=== PATIENT | female | born 1965 | race Caucasian/White ===

== ENCOUNTER → 2018-03-17 10:25 | Outpatient (CLI) | payer MEDICAID, SELFPAY ==
--- NOTE | 2018-03-17 10:28 | US_ITS ---
US breast LT complete INDICATION: Palpable nodule at 2:00 ORDERING PHYSICIAN: Rafa Capellan MD PATIENT AGE: 52 years COMPARISON: 03/11/2016 TECHNIQUE: Left breast ultrasound with axilla FINDINGS: There is a 3 mm hypoechoic area at 2:00 and may be due to small complex cyst having a similar appearance on 03/11/2016.. No other significant anomalies are evident. Small nodes are present in the axilla. IMPRESSION: 3 mm complex cyst at 2:00 similar to the previous exam. No suspicious lesions evident by ultrasound. Negative ultrasound does not exclude the possibility of malignancy. Suggest mammogram for further evaluation as a last mammogram at this institution was on 03/11/2016. BI-RADS Category: 0 Need Additional Imaging Evaluation RECOMMENDED FOLLOW-UP: IMM - IMMEDIATE FOLLOW-UP RECOMMENDED (A letter has been sent to the patient regarding results of the study.)
== END ==
PROVIDERS: PCP Family Medicine; Visit Provider Family Medicine
DX: N63.20 Unspecified lump in the left breast, unspecified quadrant (principal)
CPT/HCPCS: 76641

== ENCOUNTER → 2018-04-01 08:16 | Outpatient (CLI) | payer MEDICAID, SELFPAY ==
--- NOTE | 2018-04-01 08:18 | MM_ITS ---
MM Dig screening mamm BI w/CAD CAD Screening COMPARISON: Digital mammograms with CAD 08/22/2015 and additional views left breast 09/10/2015 and 6 month follow-up mammograms left breast 03/11/2016 INDICATION: There is a history of breast cancer patient paternal great aunt. TECHNIQUE: Standard CC and MLO images were obtained. R2 CAD reviewed. FINDINGS: Moderate diffuse heterogenic fibroglandular densities are seen in the central portions and upper outer quadrants of both breast. The findings are fairly symmetrical bilaterally. There is no suspicious lesion and no suspicious microcalcifications. There are stable small nodes in both axilla. IMPRESSION: Moderate diffuse breast density no suspicious lesion seen BI-RADS Category: 1 Negative RECOMMENDED FOLLOW-UP: 1YR - 1 YEAR FOLLOW-UP (A letter has been sent to the patient regarding results of the study.)
== END ==
PROVIDERS: PCP Family Medicine; Visit Provider Family Medicine
DX: Z12.31 Encounter for screening mammogram for malignant neoplasm of breast (principal)
CPT/HCPCS: 77067

== ENCOUNTER → 2018-05-26 12:20 | Outpatient (CLI) | payer MEDICAID, SELFPAY | PROVIDERS: PCP Family Medicine; Visit Provider Family Medicine | DX: R10.13 Epigastric pain (principal); Z82.49 Family history of ischemic heart disease and other diseases of the circulatory system | CPT/HCPCS: 93017 ==

== ENCOUNTER → 2019-08-18 08:42 | Outpatient (CLI) | payer OTHER, SELFPAY ==
--- NOTE | 2019-08-18 08:46 | MM_ITS ---
PROCEDURE: MM DIG SCREENING MAMM BI W/CAD Digital Breast Tomosynthesis Included CLINICAL INDICATION: SCREENING There is a history of breast cancer patient's paternal great aunt. COMPARISON: DMDXUAVL DIG MAMM-DX UNI ADD VIEWS-LT from 09/10/2015 DMDXUL DIG MAMM-DX UNI-LT from 03/11/2016 [facility] MM Dig screening mamm BI w/CAD from 04/01/2018 TECHNIQUE: Standard CC and MLO images and 3D Tomosynthesis was obtained. R2 CAD reviewed. FINDINGS: Moderate diffuse somewhat heterogenic fibroglandular densities are seen in the central portions of both breasts. The findings are stable unchanged from previous exams. There is no suspicious lesion and no suspicious microcalcifications. IMPRESSION: Moderate breast density with no suspicious lesions seen BI-RAD Category: 1 Negative FOLLOW-UP: 1YR 1 Year Follow-up (A letter has been sent to the patient regarding results of the study.) Dictated by: Dr. Shon Blake MD 08/19/2019 08:[address] Shon Blake MD in [place] 08/19/2019 08:15
== END ==
PROVIDERS: PCP Family Medicine; Visit Provider Family Medicine
DX: Z12.31 Encounter for screening mammogram for malignant neoplasm of breast (principal)
CPT/HCPCS: 77063; 77067

== ENCOUNTER 2021-01-23 09:37 | Emergency (ER) | payer OTHER, SELFPAY ==
[2021-01-23 11:02] VITALS: BP 133/86; PULSE 64; RESP 19; TEMP 36.7; O2SAT 97; BMI 29.6
--- NOTE | 2021-01-23 11:09 | HMH.EDUTC ---
[facility] [place] Clinical Impression: Superficial abrasion, Need for Tdap vaccination Sprain of left index finger Qualifiers: Encounter type: initial encounter Sprain of finger site: unspecified site Qualified Code(s): S63.611A - Unspecified sprain of left index finger, initial encounter Cellulitis Qualifiers: Site of cellulitis: extremity Site of cellulitis of extremity: upper extremity Laterality: left Qualified Code(s): L03.114 - Cellulitis of left upper limb Disposition: Home, Self-Care Condition on Discharge: Good Instructions: Cellulitis, DI for Finger Sprain Additional Instructions: Rest the extremity, apply ice for 15 minutes as tolerated three or four times per day, Elevate the extremity as tolerated while you are resting. Take ibuprofen for pain. I sent in a prescription to your pharmacy. Take the antibiotics as directed. Apply the topical antibiotic ointment to the wound on your finger as directed. Follow up with Dr. Freeman (orthopedics). I put in a referral but you need to call his office and schedule an appointment. Follow up with your regular doctor. GO TO THE ER FOR ANY WORSENING SYMPTOMS Prescriptions: Ibuprofen [Ibuprofen 600mg Tablet] 600 mg PO Q6HP PRN #30 tab PRN Reason: Mild Pain Transmission Status: Received by [facility] Sulfamethoxazole/Trimethoprim [Bactrim DS tablet] 1 each PO BID 10 Days #20 tab Transmission Status: Received by [facility] Mupirocin [Bactroban 2% Ointment 22gm tube] 1 applicatio TP TID 7 Days #1 gm Transmission Status: Received by [facility] cephALEXin [cephALEXin 500mg capsule] 500 mg PO Q6H 10 Days #40 cap Transmission Status: Received by [facility] Referrals: Eliseo Peñaloza MD [Primary Care Provider] - Quentin Freeman MD [Staff Physician] - Time of Disposition: 11:57 Medical Decision Making - Medical Records Medical records reviewed: No: I reviewed the patient's medical records. - Rogelio Inquiry Pt receiving controlled substance: No Vital Signs: 01/23/21 11:02 01/23/21 12:13 Temperature 98.1 F 98.1 F Temperature Source Oral Pulse Rate 64 Pulse Rate [Left] 64 Respiratory Rate 19 19 Blood Pressure 133/86 Blood Pressure [Right Arm] 133/86 Blood Pressure Mean [Right Arm] 101 02 Sat by Pulse Oximetry 97 Orders (Tests/Meds): ED MEDICATIONS Discontinued Medications Generic Name Dose Route Start Last Admin Trade Name Ortega PRN Reason Stop Dose Admin Tetanus/Reduced Diphtheria/Acell Pertussis 0.5 ml 01/23/21 11:15 01/23/21 11:30 Tet/Diphth/Pert-Adult 0.5ml Syringe IM 01/23/21 11:16 0.5 ml .ONCE ONE Administration - Radiology Data #1 Image(s): Hand Image Reviewed: Yes I reviewed the patient's radiology image, Yes I have reviewed radiologist's interpretation Preliminary Findings: No Fracture Seen PROCEDURE: XR HAND RT MIN 3V CLINICAL INDICATION: pain/swelling COMPARISON: CR HANDR3 HAND-RT 3 VIEWS from 11/08/2016 FINDINGS: No fracture or dislocation. No lytic or blastic change. There is normal mineralization. The joint spaces are well-preserved. No significant degenerative/arthritic changes. No erosive changes evident. Other findings:None. IMPRESSION: No acute findings. Dictated by: Everardo Castro MD 01/23/2021 13:37 Everardo Castro MD in [place] 01/23/2021 13:37 [facility] [place] - General Stated complaint: AO cut/swollen finger Time Seen by Provider: 01/23/21 11:09 Mode of Arrival: Ambulatory Source of Information: Patient Limitations: No Limitations Description of Symptoms (Recalled from Triage Doc. by RN): pt states she injured her R index finger pulling a command strip off the wall. pt now c/o R index finger pain and swelling that goes up into her hand. HEENT Symptoms (Recalled from RN notes): No Resp Symptoms (Recalled from RN notes): No Skin Symptoms (Recalled from RN notes): No MS Symptoms (Recalled from
--- NOTE | 2021-01-23 11:37 | XR_ITS ---
PROCEDURE: XR HAND RT MIN 3V CLINICAL INDICATION: pain/swelling COMPARISON: CR HANDR3 HAND-RT 3 VIEWS from 11/08/2016 FINDINGS: No fracture or dislocation. No lytic or blastic change. There is normal mineralization. The joint spaces are well-preserved. No significant degenerative/arthritic changes. No erosive changes evident. Other findings:None. IMPRESSION: No acute findings. Dictated by: Everardo Castro MD 01/23/2021 13:37 Everardo Castro MD in [place] 01/23/2021 13:37
[2021-01-23 12:13] VITALS: BP 133/86; PULSE 64; RESP 19; TEMP 36.7
== END 2021-01-23 12:18 | disposition home or self-care (01) ==
PROVIDERS: Emergency Provider Nurse Practitioner Family; PCP Family Medicine
DX: L03.114 Cellulitis of left upper limb (principal); S63.611A Unspecified sprain of left index finger, initial encounter; W22.09XA Striking against other stationary object, initial encounter; Y92.019 Unspecified place in single-family (private) house as the place of occurrence of the external cause
CPT/HCPCS: 73130; 90715; 99202; G0463

== ENCOUNTER 2021-03-12 16:40 | Emergency (ER) | payer OTHER, SELFPAY ==
[2021-03-12 16:52] VITALS: BP 126/74; PULSE 94; RESP 16; TEMP 37.9; O2SAT 95; BMI 29.4
[2021-03-12 18:36] LABS: UTC Strep Screen (Rapid) Positive (Negative)
[2021-03-12 18:37] VITALS: PULSE 93; RESP 16; TEMP 39.5; O2SAT 99; BMI 29.4
--- NOTE | 2021-03-12 19:03 | HMH.EDUTC ---
[facility] [place] Disposition Clinical Impression: Strep throat Disposition: Home, Self-Care Condition on Discharge: Good Instructions: Strep Throat, DI for Strep Throat Additional Instructions: Drink plenty of fluids. Take tylenol or ibuprofen for pain or fever. Take the medications as directed. Follow up with your regular doctor. GO TO THE ER FOR ANY WORSENING SYMPTOMS Throw your tooth brush away and get a new one. Don't start the oral steroids until tomorrow, since you had the shot here today. The cough medication (promethazine dm) will make you drowsy, so don't drive or operate heavy machinery after taking it. Prescriptions: Promethazine/Dextromethorphan [Promethazine-Dm Syrup] 5 ml PO Q6HP PRN #180 ml PRN Reason: Cough Transmission Status: Received by [facility] methylPREDNISolone [Medrol] 4 mg PO DIRECTED 6 Days #21 packet Transmission Status: Received by [facility] Azithromycin [Z-Devon 250mg Tab*] 250 mg PO UD DOSE PK #6 tab Transmission Status: Received by [facility] Referrals: Eliseo Peñaloza MD [Primary Care Provider] - Time of Disposition: 19:25 Medical Decision Making - Medical Records Medical records reviewed: No: I reviewed the patient's medical records. - Rogelio Inquiry Pt receiving controlled substance: No Vital Signs: 03/12/21 16:52 03/12/21 18:37 03/12/21 19:42 Temperature 100.3 F H 103.1 F H 100.1 F H Temperature Source Oral Oral Pulse Rate 85 Pulse Rate [Radial] 94 H 93 H Respiratory Rate 16 16 16 Blood Pressure 126/74 Blood Pressure [Right Radial Artery] 126/74 Blood Pressure Mean [Right Radial Artery] 91 Blood Pressure Position [Right Radial Artery] Sitting 02 Sat by Pulse Oximetry 95 99 Oxygen Delivery Method Room Air - Lab Data Lab results reviewed: Yes: I reviewed the patient's lab results. Lab Results 03/12/21 18:29: Strep Scn Rapid Clinic Positive A Orders (Tests/Meds): ED MEDICATIONS Discontinued Medications Generic Name Dose Route Start Last Admin Trade Name Freq PRN Reason Stop Dose Admin Ceftriaxone Sodium 1 gm 03/12/21 19:21 03/12/21 19:28 Ceftriaxone 1gm Vial IM 03/12/21 19:22 1 gm ONCE ONE Administration Ibuprofen 800 mg 03/12/21 18:45 03/12/21 18:46 Ibuprofen 400 Mg Tablet PO 03/12/21 18:46 800 mg ONCE ONE Administration Lidocaine HCl 0 ml 03/12/21 19:21 03/12/21 19:27 Lidocaine 1% 5ml Pf Vial IM 03/12/21 19:22 2 ml ONCE ONE Administration Methylprednisolone Sodium Succinate 125 mg 03/12/21 19:21 03/12/21 19:27 Methylprednisolone Sod Succ 125mg Vial IM 03/12/21 19:22 125 mg ONCE ONE Administration [facility] [place] HPI - General Stated complaint: fever sore throat cough swollen throat Time Seen by Provider: 03/12/21 19:03 Mode of Arrival: Ambulatory Source of Information: Patient Limitations: No Limitations Description of Symptoms (Recalled from Triage Doc. by RN): pt c/o a fever, sore throat, and cough since yesterday. HEENT Symptoms (Recalled from RN notes): Yes (sore throat) Resp Symptoms (Recalled from RN notes): Yes (cough) Skin Symptoms (Recalled from RN notes): No MS Symptoms (Recalled from RN notes): No Functional Status (Recalled from RN notes): wnl - History of Present Illness Provider Complaint: She states that she has had a sore throat, fever, chills, dry cough and she has felt bad for the past 2 days. Her symptoms worsened last night. She has been vaccinated against covid-19. - Related Data Previous Rx's Medication Instructions Recorded Ibuprofen [Ibuprofen 600mg 600 mg PO Q6HP PRN #30 tab 01/23/21 Tablet] Mupirocin [Bactroban 2% Ointment 1 applicatio TP TID 7 Days #1 gm 01/23/21 22gm tube] Sulfamethoxazole/Trimethoprim 1 each PO BID 10 Days #20 tab 01/23/21 [Bactrim DS tablet] cephALEXin [cephALEXin 500mg 500 mg PO Q6H 10 Days #40 cap 01/23/21 capsule] Azithromycin [Z-Devon 250mg Tab*] 250 mg P
[2021-03-12 19:42] VITALS: BP 126/74; PULSE 85; RESP 16; TEMP 37.8
== END 2021-03-12 19:46 | disposition home or self-care (01) ==
PROVIDERS: Emergency Provider Nurse Practitioner Family; PCP Family Medicine
DX: J02.0 Streptococcal pharyngitis (principal); U07.1 COVID-19
CPT/HCPCS: 87880; 96372; 99202; G0463

== ENCOUNTER → 2021-03-14 14:16 | Outpatient (CLI) | payer OTHER, SELFPAY | PROVIDERS: Visit Provider Nurse Practitioner | DX: U07.1 COVID-19 (principal) | CPT/HCPCS: C9803; U0003; U0005 ==

== ENCOUNTER → 2021-05-28 15:14 | Outpatient (CLI) | payer OTHER, SELFPAY ==
--- NOTE | 2021-05-28 15:27 | XR_ITS ---
FINAL REPORT CLINICAL HISTORY: KNEE PAIN / ACUTE FINDINGS: Three views of the right knee reveal no evidence of fracture or dislocation. The bony alignment is normal. There is mild degenerative change of the medial compartment and patellofemoral joint spaces. There is no evidence of joint effusion. No localized soft tissue abnormality is identified. IMPRESSION: No acute abnormality identified. Reviewed, Interpreted and Dictated by Duc Gregorio III, MD Transcribed by Thanh Farley Authenticated by Duc Gregorio III, MD on 05/28/2021 04:15:56 PM [facility]
== END ==
PROVIDERS: PCP Family Medicine; Visit Provider Nurse Practitioner Family
DX: M25.561 Pain in right knee (principal)
CPT/HCPCS: 73562

== ENCOUNTER 2021-07-22 14:14 | Emergency (ER) | payer OTHER, SELFPAY ==
[2021-07-22 14:25] VITALS: BP 116/73; PULSE 78; RESP 19; TEMP 37; O2SAT 98; BMI 29.4
--- NOTE | 2021-07-22 15:07 | HMH.EDUTC ---
[facility] [place] Disposition Clinical Impression: Laceration Disposition: Home, Self-Care Condition on Discharge: Good Instructions: DI for Laceration Repair -- [place] Additional Instructions: Staple instructions: You have required [place] today. Please read the following instructions so you know how to care for them: 1. Keep wound area dry for the first 24 hours. 2 May clean gently with mild soap and water, after 48 hours to prevent crusting over suture knots. 3. You may shower if your provider gives permission but do not take a bath until the skin is healed.. 4. Never leave a wet dressing or Band-Aid on your stitches as this allows bacteria to reach the area and may cause infection. Band-aids can cause the wound to sweat and not recommended to wear for long periods of time Watch for signs of infection: Increasing redness, tenderness or warmth around the suture site Unusual swelling around the site Appearance of pus around each suture or any red streaks Fever If you develop any of the above signs or symptoms of infection, Follow up with Family Physician immediately 5. Suture removal in _7___days 6. Return to [facility] or follow up with family doctor for removal. This can be done by any medical provider during regular hours on Thursday through Thursday, by appointment. Referrals: Eliseo Peñaloza MD [Primary Care Provider] - Time of Disposition: 15:41 Medical Decision Making - Rogelio Inquiry Pt receiving controlled substance: No Rogelio was queried for this patient: No Vital Signs: 07/22/21 14:25 Temperature 98.6 F Temperature Source Oral Pulse Rate [Right Brachial] 78 Respiratory Rate 19 Blood Pressure [Right Arm] 116/73 Blood Pressure Mean [Right Arm] 87 Blood Pressure Source [Right Arm] Automatic Cuff Blood Pressure Position [Right Arm] Sitting 02 Sat by Pulse Oximetry 98 Oxygen Delivery Method Room Air [facility] [place] HPI - General Stated complaint: AO 07/22 head laceration Time Seen by Provider: 07/22/21 15:07 Mode of Arrival: Ambulatory Source of Information: Patient Limitations: No Limitations Description of Symptoms (Recalled from Triage Doc. by RN): PATIENT C/O LACERATION TO RIGHT SIDE OF FOREHEAD. SHE STATES SHE WAS TAKING A DAYBED APART TODAY WHEN A PIECE FLEW UP AND HIT HER IN THE HEAD. HEENT Symptoms (Recalled from RN notes): No Resp Symptoms (Recalled from RN notes): No Skin Symptoms (Recalled from RN notes): Yes MS Symptoms (Recalled from RN notes): No Functional Status (Recalled from RN notes): WNL - History of Present Illness Provider Complaint: Patient states that she was taking a daybed appart earlier at home when a piece of the bed hit her in the right side of her head causing lacertation to right side of head at her hairline Denies LOC but after looking at the laceration she noticed it looked like it needed to be closed so she came in States that she is uptodate on tetanus - Related Data Previous Rx's Medication Instructions Recorded Ibuprofen [Ibuprofen 600mg 600 mg PO Q6HP PRN #30 tab 01/23/21 Tablet] Mupirocin [Bactroban 2% Ointment 1 applicatio TP TID 7 Days #1 gm 01/23/21 22gm tube] Sulfamethoxazole/Trimethoprim 1 each PO BID 10 Days #20 tab 01/23/21 [Bactrim DS tablet] cephALEXin [cephALEXin 500mg 500 mg PO Q6H 10 Days #40 cap 01/23/21 capsule] Azithromycin [Z-Devon 250mg Tab*] 250 mg PO UD DOSE PK #6 tab 03/12/21 Promethazine/Dextromethorphan 5 ml PO Q6HP PRN #180 ml 03/12/21 [Promethazine-Dm Syrup] methylPREDNISolone [Medrol] 4 mg PO DIRECTED 6 Days #21 03/12/21 packet Allergies Allergy/AdvReac Type Severity Reaction Status Date / Time No Known Allergies Allergy Unverified 03/03/17 14:56 - Worker's Comp Is this a Worker's Comp case?: No [facility] History - Hepatitis A Screen Attestation statement:: This patient has been screened for Hepatitis A risk factors. I have reviewed the patient's past medical history: Yes ROS Obtained: Yes All systems revie
[2021-07-22 15:45] VITALS: BP 116/73; PULSE 78; RESP 19; TEMP 37; O2SAT 98
== END 2021-07-22 15:49 | disposition home or self-care (01) ==
PROVIDERS: Emergency Provider Nurse Practitioner; PCP Family Medicine
DX: S01.81XA Laceration without foreign body of other part of head, initial encounter (principal); W22.03XA Walked into furniture, initial encounter; Y92.019 Unspecified place in single-family (private) house as the place of occurrence of the external cause
CPT/HCPCS: 12001; 99213; G0463

== ENCOUNTER 2021-07-29 10:30 | Emergency (ER) | payer OTHER, SELFPAY ==
[2021-07-29 10:30] VITALS: BP 106/79; PULSE 78; RESP 18; TEMP 36.7; O2SAT 98; BMI 29.4
[2021-07-29 10:53] VITALS: BP 106/79; PULSE 78; TEMP 36.7; O2SAT 98; BMI 29.2
[2021-07-29 10:54] VITALS: BP 106/79; PULSE 78; RESP 18; TEMP 36.7
== END 2021-07-29 10:58 | disposition home or self-care (01) ==
PROVIDERS: Emergency Provider Nurse Practitioner Family; PCP Family Medicine
DX: Z48.02 Encounter for removal of sutures (principal); Z53.21 Procedure and treatment not carried out due to patient leaving prior to being seen by health care provider; Z79.1 Long term (current) use of non-steroidal anti-inflammatories (NSAID); Z79.52 Long term (current) use of systemic steroids; Z79.899 Other long term (current) drug therapy

== ENCOUNTER → 2021-09-30 14:52 | Outpatient (CLI) | payer OTHER, SELFPAY ==
--- NOTE | 2021-09-30 14:57 | MM_ITS ---
PROCEDURE INFORMATION: Exam: MG Bilateral Screening 3D Mammography Exam date and time: 09/30/2021 3:07 PM Age: 55 years old Clinical indication: Screening mammogram. TECHNIQUE: Imaging protocol: Bilateral Screening tomosynthesis and 2D mammography including computer-aided detection (CAD) when performed. COMPARISON: 1. MG MM DIG SCREENING MAMM BI W/CAD 08/18/2019 9:17 AM 2. MG [facility] MM Dig screening mamm BI w/CAD 04/01/2018 8:31 AM 3. MG DMDXUL DIG MAMM-DX UNI-LT 03/11/2016 1:12 PM 4. MG DMDXUAVL DIG MAMM-DX UNI ADD VIEWS-LT 09/10/2015 2:14 PM FINDINGS: MAMMOGRAPHY: Breast composition: The breast is heterogeneously dense, which may obscure small masses. Mass: None. Architectural distortion: No new or suspicious architectural distortion. Calcifications: No new or suspicious calcifications are present Asymmetric density: 0.7 cm asymmetry within the slightly inner anterior left breast, not well-delineated on MLO, should be further assessed with spot views in CC/MLO and full lateral projection to confirm and further characterize. Ultrasound should also be performed. Skin thickening: None. Axillary adenopathy: None. IMPRESSION: 0.7 cm asymmetry within the slightly inner anterior left breast, not well-delineated on MLO, should be further assessed with spot views in CC/MLO and full lateral projection to confirm and further characterize. Ultrasound should also be performed. ASSESSMENT: BI-RADS category 0: Incomplete-need additional imaging evaluation
--- NOTE | 2021-09-30 14:57 | XR_ITS ---
FINAL REPORT CLINICAL HISTORY: cervicalgia, TINGLING DOWN lt arm and SPINE FINDINGS: CERVICAL SPINE Five views were obtained. There is no acute fracture. There is no malalignment. There is straightening of the normal cervical curvature which could be due to positioning or muscle spasm. There is [id number] degenerative change with mild bilateral C5-6 neural foraminal narrowing. There is no soft tissue abnormality. IMPRESSION: Degenerative change with C5-6 neural foraminal narrowing. Reviewed, Interpreted and Dictated by Duc Gregorio III, MD Transcribed by Yari Morales Authenticated and [facility]
== END ==
PROVIDERS: PCP Family Medicine; Visit Provider Family Medicine
DX: Z12.31 Encounter for screening mammogram for malignant neoplasm of breast (principal); M54.2 Cervicalgia
CPT/HCPCS: 72050; 77063; 77067

== ENCOUNTER → 2021-10-21 12:25 | Outpatient (CLI) | payer OTHER, SELFPAY ==
--- NOTE | 2021-10-21 12:32 | US_ITS ---
PROCEDURE INFORMATION: Exam: US Left Breast, Complete MG Left Diagnostic Breast Tomosynthesis Exam date and time: 10/21/2021 1:16 PM Age: 55 years old Clinical indication: Patient recalled on the basis of a screening mammogram for further evaluation; Left breast; mass TECHNIQUE: Imaging protocol: Complete ultrasound of all four quadrants of the Left breast and the retroareolar regions, including ultrasound of the axilla when performed. Left Diagnostic tomosynthesis and 2D mammography including computer-aided detection (CAD) when performed. Unilateral or bilateral exam. COMPARISON: BREASTLT US breast LT complete 03/17/2018 11:28 AM FINDINGS: MAMMOGRAPHY: Digital diagnostic spot compression views of the left breast and 90 degree lateral view of the left breast demonstrate normal overlapping fibroglandular structures without persistent mass or asymmetry identified. ULTRASOUND: Sonographic images of the left breast including the retroareolar region, all 4 quadrants and the axilla do not demonstrate any definitive solid or cystic masses. Questionable hypoechoic mass versus island of normal fibroglandular structures in the 11 o'clock axis 3 cm from the nipple measuring 0.8 x 0.8 x 0.3 cm in dimension. Additional questionable hypoechoic mass versus normal fibroglandular structures in the upper outer quadrant 1 cm from the nipple measuring 0.4 x 0.6 x 0.2 cm. Incidental subcentimeter lipoma in the left 3 o'clock periareolar region. No architectural distortion or acoustical shadowing. No skin thickening or axillary adenopathy. IMPRESSION: Probably benign island of normal fibroglandular parenchyma in the left breast. A six-month follow-up precautionary left breast ultrasound is recommended to ensure stability of the pattern identified ASSESSMENT: BI-RADS Category 3: Probably benign
== END ==
PROVIDERS: PCP Family Medicine; Visit Provider Nurse Practitioner Family
DX: R92.8 Other abnormal and inconclusive findings on diagnostic imaging of breast (principal)
CPT/HCPCS: 76641; 77061; 77065; G0279

== ENCOUNTER 2021-12-19 13:00 | Outpatient (RCR) | payer OTHER, SELFPAY ==
--- NOTE | 2021-11-22 17:32 | HMH.RHREAS ---
Rehab Reassessment Rehab OP Re-assessment Start: 11/22/21 17:22 Freq: Status: Active Protocol: Document 11/22/21 17:22 RENNY (Rec: 11/22/21 17:32 RENNY [id number]) E-signed By Ron White PT Rehab Re-assessment Subjective Subjective Patient reports 50% improvement since start of care. Objective Objective Notes AROM: flx 59; ext 37; SBl 38; SBr 41; Rr 54; Rl 49 MMT: WNL Pain: 2/10 today; 2/10 at worst over past week. Neuro: NT C8-T2 dermatomes Assessment Progress Assessment Progressing as Expected Assessment Notes Objective improvements as noted above. Patient has tolerated and had a good response to cervical mechanical traction. Main complaint is NT about the R upper trap and periscapular area. Patient would benefit from continuing with skilled PT services in order to address functional limitations with overhead lifting and household care activies. Patient goals met STG's, LTG 8 Goals Not Met LTG 1-7 Revised Goals NA Plan Plan Continue with current POC. Frequency of Therapy 15 Duration of therapy 1 Time and Billing Re-Eval Time 15 Re-Eval Billing Units 1 PHYSICIAN CERTIFICATION: I certify the specified therapy services for Zandra Chowdhury are required, authorized, and reviewed every 30 days.
== END 2021-12-19 13:05 | disposition home or self-care (01) ==
LOC: PT 13:00
PROVIDERS: PCP Family Medicine; Visit Provider Nurse Practitioner Family
DX: M50.30 Other cervical disc degeneration, unspecified cervical region (principal)
CPT/HCPCS: 97010; 97012; 97014; 97110; 97140; 97163; 97164; G0283

== ENCOUNTER → 2022-07-26 08:27 | Outpatient (CLI) | payer OTHER, SELFPAY ==
[2022-07-26 09:43] LABS: Basophils # 0.1 K/mm3 (0-0.2); Basophils % 1.1 % (0.1-2.0); Eosinophils # 0.1 K/mm3 (0.0-0.4); Eosinophils % 1.6 % (0.1-12.0); Hematocrit 41.9 % (37.0-47.0); Hemoglobin 13.7 g/dL (12.2-16.2); Lymphocytes # 1.4 K/mm3 (0.7-4.5); Lymphocytes % 29.8 % (10-50); Mean Corpuscular HGB Conc 32.7 g/dL (31.8-35.4); Mean Corpuscular Hemoglobin 30.9 pg (27.0-31.2); Mean Corpuscular Volume 94.4 fl (81-99); Mean Platelet Volume 7.5 fl (7.4-10.4); Monocytes # 0.3 K/mm3 (0.1-1.0); Monocytes % 6.2 % (1.7-9.3); Neutrophils # 2.9 K/mm3 (1.8-7.8); Neutrophils % 61.4 % (37.0-80.0); Platelet Count 331 K/mm3 (142-424); Red Blood Count 4.43 M/mm3 (4.20-5.40); Red Cell Distribution Width 13.1 % (11.5-17.5); White Blood Count 4.6 K/mm3 (4.8-10.8)
[2022-07-26 10:20] LABS: Alanine Aminotransferase 29 U/L (12-78); Albumin Level 4.3 g/dl (3.5-5.0); Albumin/Globulin Ratio 1.6 (1.1-1.8); Alkaline Phosphatase 83 U/L (38-126); Anion Gap 13.7 mEq/L (5-15); Aspartate Amino Transferase 35 U/L (14-36); Bilirubin,Total 0.5 mg/dl (0.2-1.3); Blood Urea Nitrogen 18 mg/dl (7-17); Calcium 9.1 mg/dl (8.4-10.2); Carbon Dioxide 30 mmol/L (22.0-30.0); Chloride 99 mmol/L (98-107); Chol/HDL Ratio 1.5 (1-3.5); Cholesterol 148 mg/dl (140-200); Estimated Glomerular Filt Rate 104 ml/min (>60); GFR (African American) 126 ML/MIN (>60); Globulin 2.7 g/dL (1.3-3.2); Glucose 90 mg/dl (74-100); HDL Cholesterol 97 mg/dl (40-60); Potassium 4.7 mmoL/L (3.5-5.1); Sodium 138 mmol/L (136-145); Triglycerides 52 mg/dl (30-150); VLDL Cholesterol 10 mg/dL (0-40)
[2022-07-26 10:31] LABS: Direct LDL Cholesterol 52.25 mg/dL (100-129)
[2022-07-26 10:35] LABS: 25-OH Vitamin D, Total 34.6 ng/mL (30-100)
[2022-07-26 10:40] LABS: Free T4 (Free Thyroxine) 1.29 ng/dl (0.78-2.19)
[2022-07-26 10:54] LABS: Thyroid Stimulating Hormone 0.33 uIU/mL (0.465-4.68)
== END ==
PROVIDERS: PCP Family Medicine; Visit Provider Physician Assistant
DX: E03.9 Hypothyroidism, unspecified (principal); E55.9 Vitamin D deficiency, unspecified; E78.5 Hyperlipidemia, unspecified; I10 Essential (primary) hypertension; K21.9 Gastro-esophageal reflux disease without esophagitis
CPT/HCPCS: 36415; 80053; 80061; 82306; 84439; 84443; 85025

== ENCOUNTER → 2022-07-29 14:41 | Outpatient (CLI) | payer OTHER, SELFPAY ==
--- NOTE | 2022-07-29 14:45 | US_ITS ---
PROCEDURE INFORMATION: Exam: US Left Breast, Complete Exam date and time: 07/29/2022 3:20 PM Age: 56 years old Clinical indication: short-term radiographic follow-up for a questionable left breast mass TECHNIQUE: Imaging protocol: Complete ultrasound of all four quadrants of the left breast and the retroareolar regions, including ultrasound of the axilla when performed. COMPARISON: US BREAST LT COMPLETE 10/21/2021 1:16 PM FINDINGS: Breast: Sonographic images of the left breast including the retroareolar region, all 4 quadrants and the axilla do not demonstrate any suspicious solid or cystic masses. No architectural distortion or acoustical shadowing. Previously noted questionable mass in the 11 o'clock axis 3 cm from the nipple is not reproducible on the current examination. No skin thickening or axillary adenopathy. IMPRESSION: No mammographic evidence of malignancy. Annual screening is recommended in October 2022 unless otherwise clinically indicated. ASSESSMENT: BI-RADS Category 1: Negative
== END ==
PROVIDERS: PCP Family Medicine; Visit Provider Physician Assistant
DX: R92.8 Other abnormal and inconclusive findings on diagnostic imaging of breast (principal)
CPT/HCPCS: 76641

== ENCOUNTER → 2023-02-13 14:21 | Outpatient (CLI) | payer OTHER, SELFPAY ==
[2023-02-13 14:25] LABS: Coronavirus 19, PCR Not Detected (NotDetected); Influenza A, PCR Not Detected (NotDetected); Influenza B, PCR Not Detected (NotDetected)
== END ==
PROVIDERS: PCP Family Medicine; Visit Provider Physician Assistant
DX: Z20.822 Contact with and (suspected) exposure to COVID-19 (principal)
CPT/HCPCS: 87636

== ENCOUNTER 2023-10-06 15:37 | Outpatient (CLI) | payer OTHER, SELFPAY ==
--- NOTE | 2023-10-06 15:44 | MM_ITS ---
PROCEDURE INFORMATION: Exam: MG Bilateral Screening 3D Mammography Exam date and time: 10/06/2023 3:35 PM Age: 57 years old Clinical indication: Screening mammogram TECHNIQUE: Imaging protocol: Bilateral Screening tomosynthesis and 2D mammography including computer-aided detection (CAD) when performed. COMPARISON: 1. MG MM DIG MAMM DX UNILAT LT CAD 10/21/2021 12:57 PM 2. MG MM DIG SCREENING MAMM BI W/CAD 09/30/2021 3:07 PM 3. MG MM DIG SCREENING MAMM BI W/CAD 08/18/2019 9:17 AM 4. MG SCBI MM Dig screening mamm BI w/CAD 04/01/2018 8:31 AM FINDINGS: MAMMOGRAPHY: Breast composition: There are scattered areas of fibroglandular density. Mass: None. Architectural distortion: No new or suspicious architectural distortion. Calcifications: No new or suspicious calcifications are present Asymmetric density: No new or suspicious asymmetric density is present Skin thickening: None. Axillary adenopathy: None. IMPRESSION: No mammographic evidence of malignancy. Recommend annual screening mammography unless otherwise clinically indicated. ASSESSMENT: BI-RADS category 1: Negative.
== END 2023-10-06 23:59 | disposition home or self-care (01) ==
LOC: RAD 15:37
PROVIDERS: PCP Physician Assistant; Visit Provider Physician Assistant
DX: Z12.31 Encounter for screening mammogram for malignant neoplasm of breast (principal)
CPT/HCPCS: 77063; 77067

== ENCOUNTER 2023-12-29 15:20 | Emergency (ER) | payer OTHER, SELFPAY ==
[2023-12-29 15:30] VITALS: BP 121/70; PULSE 75; RESP 20; TEMP 36.6; O2SAT 97; BMI 30.2
--- NOTE | 2023-12-29 15:33 | EXP.UTC ---
Discharge Plan Disposition Patient Disposition: Home, Self-Care Condition: Good Prescriptions Prescriptions: New cyclobenzaprine 10 mg Tablet 10 mg PO BID PRN (Reason: Muscle Spasm) Qty: 20 0RF methylprednisolone 4 mg Tablets,Dose Pack 4 mg PO DIRECTED 6 Days Qty: 21 0RF Rx Instructions: Take 1 pack as directed for 6 days No Action lisinopril 20 mg tablet 20 mg PO DAILY omeprazole 40 mg capsule,delayed release(DR/EC) 40 mg PO DAILY Patient Comments: TAKE ONE CAPSULE BY MOUTH EVERY DAY 30 minutes BEFORE morning meal levothyroxine 75 mcg tablet 75 mcg PO DAILY Patient Comments: TAKE ONE TABLET BY MOUTH EVERY DAY ON an EMPTY stomach levothyroxine 88 mcg tablet 88 mcg PO DAILY Patient Comments: TAKE ONE TABLET BY MOUTH EVERY DAY IN THE MORNING ON an EMPTY stomach sertraline 50 mg tablet 50 mg PO DAILY Patient Comments: TAKE ONE TABLET BY MOUTH EVERY DAY rosuvastatin 5 mg tablet 5 mg PO HS Referrals Follow up/Referrals: Eliseo Peñaloza MD [Primary Care Provider] - See instructions Activity Restrictions/Add. Instructions Additional Instructions/Restrictions: Go home and rest. It would be best if you rested tomorrow too. No heavy lifting & No twisting for the next few days. Take the oral medications as directed. The muscle relaxer (cyclobenzaprine--Flexeril) will make you drowsy, so don't drive or operate heavy machinery after taking it. Don't start the oral steroids (medrol dose pack) until tomorrow, since you had the shots in here today. Follow up with your regular doctor. GO TO THE ER FOR ANY WORSENING SYMPTOMS OR CONCERN, ESPECIALLY BOWEL OR BLADDER ISSUES, SADDLE AREA NUMBNESS, FEVER, ETC Clinical Impressions Clinical Impression: Low back pain Stand Alone Forms Stand Alone Forms: Work/School Release Instructions Patient Instructions: Cyclobenzaprine, Methylprednisolone Print Language Print Language: Yakut Discharge ED Provider: Chuy Ackerman [facility] General Stated complaint: lower back pain Time Seen by Provider: 12/29/23 15:33 History of Present Illness Provider Complaint: She states that for the past 1 week she has had low back pain. She denies any recent falls or trauma. She denies any urinary symptoms. She states that she has had episodes of low back pain like this in the past. Related Data Home Medications ?Medication ?Instructions ?Recorded ?Confirmed levothyroxine 75 mcg tablet 75 mcg PO DAILY 12/29/23 12/29/23 levothyroxine 88 mcg tablet 88 mcg PO DAILY 12/29/23 12/29/23 lisinopril 20 mg tablet 20 mg PO DAILY 12/29/23 12/29/23 omeprazole 40 mg capsule,delayed 40 mg PO DAILY 12/29/23 12/29/23 release rosuvastatin 5 mg tablet 5 mg PO HS 12/29/23 12/29/23 sertraline 50 mg tablet 50 mg PO DAILY 12/29/23 12/29/23 Previous Rx's ?Medication ?Instructions ?Recorded cyclobenzaprine 10 mg tablet 10 mg PO BID PRN Muscle Spasm #20 12/29/23 tabs methylprednisolone 4 mg tablets in 4 mg PO DIRECTED 6 days #21 tabs 12/29/23 a dose pack Allergies Allergy/AdvReac Type Severity Reaction Status Date / Time No Known Allergies Allergy Unverified 03/03/17 14:56 [facility] Disclaimer: The information contained in this section may have been updated after the patient was seen, as this information can be updated by other users. Social History Smoking Status: Never smoker alcohol intake: never current occupational status: employed Travel in the last 8 weeks: None ROS Obtained: Yes All systems reviewed & no additional complaints except as documented Constitutional Constitutional: Denies chills and Denies fever(s) Eyes Eyes: Denies eye discharge ENT Ears, Nose, Mouth, and Throat: Denies dizziness, Denies otalgia, Denies neck pain and Denies sore throat Cardiovascular Cardiovascular: Denies chest pain Respiratory Respiratory: Denies shortness of breath, Denies chest congestion, Denies cough, Denies stridor and Denies wheezing Gastrointestinal Gastrointestingal: Denies nausea or vomiting Musculoskeletal Musculoskeletal: Reports as per HPI, Reports back pain and Denies neck pain Integumentary/Breasts Skin/Breast: Denies rash Neurologic Neurologic: Denies dizziness and Denies paresthesias Allergic/Immunologic Allergic/Immunologic: Denies wheezing Physical Exam General General appearance: alert and in no apparent distress Head Head exam: atraumatic, normocephalic and normal inspection Eye Eye exam: Present normal appearance, PERRL and EOMI ENT ENT exam: Present normal exam, normal oropharynx, mucous membranes moist, TM's normal bilaterally and normal external ear exam Neck Neck exam: Present normal inspection, full ROM and trachea midline; Absent meningismus or lymphadenopathy Chest Chest inspection: Present normal inspection and symmetric chest wall rise; Absent tenderness Respiratory Respiratory exam: Present normal lung sounds bilaterally; Absent respiratory distress Cardiovascular Cardiovascular exam: Present regular rate and normal rhythm; Absent JVD Abdominal Exam Abdominal exam: Present soft and normal bowel sounds; Absent distention, tenderness or guarding Extremities Exam Extremities exam: Present normal inspection, full ROM and normal capillary refill; Absent calf tenderness Back Exam Back exam: Present normal inspection; Absent tenderness Neurological Exam Neurological exam: Present alert, oriented X3, CN II-XII intact, normal gait and reflexes normal; Absent motor sensory deficit Expanded Neurological Exam Speech: Present fluid speech Cranial nerves: Normal: EOM function (II, III, IV, ), facial sensation (V), facial palsy (VII), gag reflex (IX), spinal accessory function (XI) and tongue deviation (XII) Cerebellar function: normal gait Motor strength - LUE: 5/5 Motor strength - RUE: 5/5 Motor strength - LLE: 5/5 Motor strength - RLE: 5/5 Sensory exam upper extremity: Normal: light touch and 2 point discrimination Sensory exam lower extremity: Normal: light touch and 2 point discrimination DTR: 2+: biceps (L), biceps (R), patellar (L), patellar (R), Achilles tendon (L) and Achilles tendon (R) Spinal cord function: Absent saddle anesthesia Psychiatric Psychiatric exam: Present normal affect and normal mood Skin Skin exam: Present warm, dry, intact and normal color Lymphatic Lymphatic Findings: no adenopathy Medical Decision Making Medical Records Medical records reviewed: No I reviewed the patient's medical records. Screening: Per USPSTF and CDC recommendations, given the prevalence of disease in our region, it is our hospital?s policy to screen for HIV and viral Hepatitis for all patients aged 18 and over and those with ongoing risk factors. Rogelio Inquiry Pt receiving controlled substance: No
[2023-12-29] MEDS: KETOROLAC 60MG/2ML VIAL 60 MG IM (16:24)
[2023-12-29] MEDS: METHYLPREDNISOLONE SOD SUCC 125MG VIAL 125 MG IM (16:24)
[2023-12-29 16:34] VITALS: BP 121/70; PULSE 75; RESP 20; TEMP 36.6; O2SAT 97
== END 2023-12-29 16:39 | disposition home or self-care (01) ==
PROVIDERS: Emergency Provider Nurse Practitioner Family; PCP Family Medicine
DX: M54.50 Low back pain, unspecified (principal)
CPT/HCPCS: 96372; 99213; G0381; J1885; J2919

== ENCOUNTER → 2024-06-06 06:29 | Outpatient (CLI) | payer OTHER, SELFPAY | LOC: SL 06:30 | PROVIDERS: PCP Physician Assistant; Visit Provider Physician Assistant | DX: R06.83 Snoring (principal); G47.10 Hypersomnia, unspecified | CPT/HCPCS: G0399 ==

== ENCOUNTER 2024-09-12 11:15 | Outpatient (CLI) | payer OTHER, SELFPAY ==
--- NOTE | 2024-09-12 11:17 | XR_ITS ---
FINAL REPORT CLINICAL HISTORY: fall, pain in lower extremity COMPARISON: None FINDINGS: Two views of the right tibia/fibula were obtained. There is no acute fracture or dislocation. The joint spaces are intact. There is no soft tissue abnormality. IMPRESSION: No acute bony abnormality. Reviewed, Interpreted and Dictated by Aung Hinojosa MD Transcribed by Zahida Serrato Authenticated and [facility]
--- OUTSIDE RECORDS SUMMARY | 2024-09-12 11:17 | XMS_ITS | Data Portability ---
Author Organization [place] - [facility] - [facility] ADMIN Address [address] [place] [id number] Assessment Encounter Date Assessment Date Assessment LastModified by Organization Details LastModified Time 03/05/2023 03/05/2023 57 yo female wit h epigastric pressure type discomfort and acid reflux. She has a history of 4 cm hiatal hernia on prior endoscopy. 1) Epigastric pressure type pain/GERD: She is concerned this is related to her hiatal hernia, voices desire to pursue possible surgical repair. -Will obtain EGD with Jacobo for further evaluation. -Start Omeprazole 40 mg p.o. once daily. She was provided instructions for holding PPI/H2RA/antacids prior to the jacobo study. 2) Prophylaxis: She is up to date on screening colonoscopy with next repeat due 05/11/2027. [email or web address] Not available 03/05/2023 11:11:43 05/07/2023 05/07/2023 57 yo female wit h epigastric pressure type discomfort and acid reflux. She has a history of cm hiatal hernia. 1) Epigastric pressure type pain: unclear etiology. Possibly secondary to hiatal hernia but unlikely. Will obtain CT scan of the chest and abdomen. 2)GERD/Hiatal Hernia: Continue Omeprazole 40 mg p.o. once daily. Abnormal Jacobo. Candidate for HH repair and partial fundoplication or cTIF. Will need esophageal manometry. 2) Prophylaxis: She is up to date on screening colonoscopy with next repeat due 05/11/2027. [email or web address] Not available 05/07/2023 10:06:35 07/09/2023 07/09/2023 57 yo female wit h ruq pressure type discomfort and acid reflux. She has a history of hiatal hernia. 1) RUQ discomfort: CT showed hiatal hernia and esophagitis. Exam appears more consistent with rib joint dysfunction. I have counseled core stretching morning and evening. She may use ibuprofen 40 mg as needed, but limit as possible. 2)GERD/Hiatal Hernia: Continue Omeprazole 40 mg p.o. once daily. Abnormal Jacobo. Candidate for HH repair and partial fundoplication or cTIF. She prefers to continue with medications currently as her reflux symptoms are well managed. If she does decide to pursue anti reflux surgery, will need esophageal manometry. 3) Prophylaxis: She is up to date on screening colonoscopy with next repeat due 05/11/2027. [email or web address] Not available 07/09/2023 12:45:26 07/08/2024 07/08/2024 58 yo female wit h history of hiatal hernia and GERD presenting for 1 year follow-up. 1) GERD/Hiatal Hernia: Symptoms are stable. Continue Omeprazole 40 mg p.o. once daily. Abnormal Jacobo previously. Well managed with medications currently. 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 2) Prophylaxis: She is up to date on screening colonoscopy with next repeat due 05/11/2027. [email or web address] Not available 07/08/2024 17:09:22 Plan of Treatment Reminders Order Date Submit Date Provider Last Modified By Organization Details Last Modified Time Details Appointments None recorded. Lab CMP, serum or plasma 2023 024 [facility], [address], [address], [place], [address], 4 07:14:56 CBC w/ auto diff 2023 024 [facility], [address], [address], [place], [address], 4 07:14:57 Referral None recorded. Procedures None recorded. Surgeries None recorded. Imaging CT, chest + abdomen, w/ contrast [address] (Centralized Scheduling), [address], [place], [address], 4 10:44:55 Medication Orders omeprazole 40 mg capsule,del ayed release 2022 023 [facility], [address] [place] [address] [place], [id number], 4 16:48:44 Patient TargetsNo targets recorded. Patient InstructionsNo instructions recorded. Reason for Referral None Reported. Results Created Date Observation Date Name Description Value Unit Range Abnormal Flag Note LastModifiedBy Organization Detail LastModifiedTime 05/07/19 24 05/08/2023 CMP14 +EGFR glucose 73 mg/dL 70-99 Not Available [facility] ([facility]) [address] [place], [address], 05/08/2023 07:14:56 05/07/19 24 05/08/2023 CMP14 +EGFR BUN 18 mg/dL 6-24 Not Available [facility] ([facility]) [address] [place], [address], 05/08/2023 07:14:56 05/07/19 24 05/08/2023 CMP14 +EGFR creatinine 0.93 mg/dL 0.57-1 .00 Not Available [facility] ([facility]) [address] [facility], [place], [address], 05/08/2023 07:14:56 05/07/19 24 05/08/2023 CMP14 +EGFR eGFR 73 mL/mi n/1.7 3 >59 Not Available [facility] ([facility]) [address] [place], [address], 05/08/2023 07:14:56 05/07/19 24 05/08/2023 CMP14 +EGFR BUN/creatini ne ratio 12-06 Not Available [facility] ([facility]) [address] [place], [address], 05/08/2023 07:14:56 05/07/19 24 05/08/2023 CMP14 +EGFR sodium 142 mmol/ L 134-14 4 Not Available [facility] ([facility]) [address] [place], [address], 05/08/2023 07:14:56 05/07/19 24 05/08/2023 CMP14 +EGFR potassium 4.2 mmol/ L 3.5-5. 2 Not Available [facility] ([facility]) [address] [facility], [place], [address], 05/08/2023 07:14:56 05/07/19 24 05/08/2023 CMP14 +EGFR chloride 105 mmol/ L 96-106 Not Available [facility] ([facility]) [address] [place], [address], 05/08/2023 07:14:56 05/07/19 24 05/08/2023 CMP14 +EGFR carbon dioxide, total 26 mmol/ L 20-29 Not Available [facility] ([facility]) [address] [facility], [place], [address], 05/08/2023 07:14:56 05/07/19 24 05/08/2023 CMP14 +EGFR calcium 9.0 mg/dL 8.7-10 .2 Not Available [facility] ([facility]) [address] [place], [address], 05/08/2023 07:14:56 05/07/19 24 05/08/2023 CMP14 +EGFR protein, total 7.0 g/dL 6.0-8. 5 Not Available [facility] ([facility]) [address] [place], [address], 05/08/2023 07:14:56 05/07/19 24 05/08/2023 CMP14 +EGFR albumin 4.2 g/dL 3.8-4. 9 Not Available [facility] ([facility]) [address] [place], [address], 05/08/2023 07:14:56 05/07/19 24 05/08/2023 CMP14 +EGFR globulin, total 2.8 g/dL 1.5-4. 5 Not Available [facility] ([facility]) [address] [facility], [place], [address], 05/08/2023 07:14:56 05/07/19 24 05/08/2023 CMP14 +EGFR A/G ratio 1.5 1.2-2. 2 Not Available [facility] ([facility]) [address] [facility], [place], [address], 05/08/2023 07:14:56 05/07/19 24 05/08/2023 CMP14 +EGFR bilirubin, total 0.2 mg/dL 0.0-1. 2 Not Available [facility] ([facility]) [address] [facility], [place], [address], 05/08/2023 07:14:56 05/07/19 24 05/08/2023 CMP14 +EGFR alkaline phosphatase 80 IU/L 44-121 Not Available [facility]) [address] [facility], [place], [address], 05/08/2023 07:14:56 05/07/19 24 05/08/2023 CMP14 +EGFR AST (SGOT) 20 IU/L 0-40 Not Available [facility] ([facility]) [address] [facility], [place], [address], 05/08/2023 07:14:56 05/07/19 24 05/08/2023 CMP14 +EGFR ALT (SGPT) 20 IU/L 0-32 Not Available [facility] ([facility]) [address] [facility], [place], [address], 05/08/2023 07:14:56 05/07/19 24 05/08/2023 CBC WITH DIFFE RENTI AL/PL ATELE T WBC 5.8 x10e3 /uL 3.4-10 .8 Not Available [facility] ([facility]) [address] [facility], [place], [address], 05/08/2023 07:14:57 05/07/19 24 05/08/2023 CBC WITH DIFFE RENTI AL/PL ATELE T RBC 4.25 x10e6 /uL 3.77-5 .28 Not Available [facility] ([facility]) [address] [facility], [place], [address], 05/08/2023 07:14:57 05/07/19 24 05/08/2023 CBC WITH DIFFE RENTI AL/PL ATELE T hemoglobin 13.2 g/dL 11.1-1 5.9 Not Available [facility] ([facility]) [address] [facility], [place], [address], 05/08/2023 07:14:57 05/07/19 24 05/08/2023 CBC WITH DIFFE RENTI AL/PL ATELE T hematocrit 39.8 % 34.0-4 6.6 Not Available [facility] ([facility]) [address] [place], [address], 05/08/2023 07:14:57 05/07/19 24 05/08/2023 CBC WITH DIFFE RENTI AL/PL ATELE T MCV 94 fL 79-97 Not Available [facility] ([facility]) [address] [place], [address], 05/08/2023 07:14:57 05/07/19 24 05/08/2023 CBC WITH DIFFE RENTI AL/PL ATELE T MCH 31.1 pg 26.6-3 3.0 Not Available [facility] ([facility]) [address] [place], [address], 05/08/2023 07:14:57 05/07/19 24 05/08/2023 CBC WITH DIFFE RENTI AL/PL ATELE T MCHC 33.2 g/dL 31.5-3 5.7 Not Available [facility] ([facility]) [address] [facility], [place], [address], 05/08/2023 07:14:57 05/07/19 24 05/08/2023 CBC WITH DIFFE RENTI AL/PL ATELE T RDW 12.9 % 11.7-1 5.4 Not Available [facility] ([facility]) [address] [facility], [place], [address], 05/08/2023 07:14:57 05/07/19 24 05/08/2023 CBC WITH DIFFE RENTI AL/PL ATELE T platelets 279 x10e3 /uL 150-45 0 Not Available [facility] ([facility]) [address] [facility], [place], [address], 05/08/2023 07:14:57 05/07/19 24 05/08/2023 CBC WITH DIFFE RENTI AL/PL ATELE T neutrophils 68 % not estab. Not Available [facility] ([facility]) [address] [facility], [place], [address], 05/08/2023 07:14:57 05/07/19 24 05/08/2023 CBC WITH DIFFE RENTI AL/PL ATELE T lymphs 23 % not estab. Not Available [facility] ([facility]) [address] [facility], [place], [address], 05/08/2023 07:14:57 05/07/19 24 05/08/2023 CBC WITH DIFFE RENTI AL/PL ATELE T monocytes 6 % not estab. Not Available [facility] ([facility]) [address] [facility], [place], [address], 05/08/2023 07:14:57 05/07/19 24 05/08/2023 CBC WITH DIFFE RENTI AL/PL ATELE T eos 2 % not estab. Not Available [facility] ([facility]) [address] [facility], [place], [address], 05/08/2023 07:14:57 05/07/19 24 05/08/2023 CBC WITH DIFFE RENTI AL/PL ATELE T basos 1 % not estab. 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 0 Not Available [facility] ([facility]) [address] [place], [address], 05/08/2023 07:14:57 05/07/19 24 05/08/2023 CBC WITH DIFFE RENTI AL/PL ATELE T lymphs (absolute) 1.3 x10e3 /uL 0.7-3. 1 Not Available [facility] ([facility]) [address] [place], [address], 05/08/2023 07:14:57 05/07/19 24 05/08/2023 CBC WITH DIFFE RENTI AL/PL ATELE T monocytes(ab solute) 0.4 x10e3 /uL 0.1-0. 9 Not Available [facility] ([facility]) [address] [place], [address], 05/08/2023 07:14:57 05/07/19 24 05/08/2023 CBC WITH DIFFE RENTI AL/PL ATELE T eos (absolute) 0.1 x10e3 /uL 0.0-0. 4 Not Available [facility] ([facility]) [address] [place], [address], 05/08/2023 07:14:57 05/07/19 24 05/08/2023 CBC WITH DIFFE RENTI AL/PL ATELE T baso (absolute) 0.0 x10e3 /uL 0.0-0. 2 Not Available [facility] ([facility]) [address] [facility], [place], [address], 05/08/2023 07:14:57 05/07/19 24 05/08/2023 CBC WITH DIFFE RENTI AL/PL ATELE T immature granulocytes 0 % not estab. Not Available [facility] ([facility]) [address] [facility], [place], [address], 05/08/2023 07:14:57 05/07/19 24 05/08/2023 CBC WITH DIFFE RENTI AL/PL ATELE T immature grans (abs) 0.0 x10e3 /uL 0.0-0. 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 HISTOR Y: Epigas tric pain. PROCED URE: The patien t was inject ed with IV contra st. Axial images were obtain ed from the lung apex to the mid abdome n by comput ed tomogr aphy. FINDIN GS: CHEST: There is no axilla ry adenop athy. There is no hilar or medias tinal adenop athy. Heart size is normal . There is no perica rdial or pleura l effusi on. There are scatte red, small calcif ied and noncal cified pulmon zina nodule s measur ing up to 5 mm. These are likely benign granul omas. No suspic ious infilt rate or nodule s identi fied. There is mild circum ferent ial esopha geal wall thicke buffy. There is a tiny slidin g-type hiatal hernia . There are degene rative change s of the spine. IMPRES AMARILIS: 1. Scatte red pulmon zina nodule s are likely benign granul omas. 2. Small slidin g-type hernia and esopha geal wall thicke buffy may repres ent underl baltazar esopha gitis. Films review ed , interp reted and dictat ed by Dr. Bro Rico Transc ribed by Trung Dominguez PA-C. Dictat ed By: Bro Ivy Transc ribed By: Bro Rico Transc ribed On: 10:55 AM Electr onical ly signed by: Bro Ivy Thank you for referr ZANDRA Benito to [facility]. Legall y authen ticate d by KARINA FLETCHER 2023-05-27 10:55: 14 CC'ed Logic: Orderi ng Provid er: CASE OMER Attend ing Provid er: CASE OMER Admitt ing Provid er: CASE OMER [email or web address] [facility] [address], [place], [address], 05/29/2023 14:33:11 05/28/19 24 05/28/2023 CT, abdom en, w/ contr ast [facility] [address] [place] [address] Phone: Fax: Name: ZANDRA CHOWDHURY Exam Date: 024 : 9[birth year] Age 57 years Gender : F Access ion: [id number] Physic mariano: OMER GEIGER Facili ty: [facility] Facili ty HSV: Outpat ient Exam: CT ABD W CT ABDOME N AND PELVIS WITH CONTRA ST HISTOR Y: Epigas tric pain. PROCED URE: The patien t was inject ed with 75 ml of Isovue . Oral contra st was also admini stered . Axial images were obtain ed from the lung bases to the pubic symphy sis by comput ed tomogr aphy. FINDIN GS: ABDOME N: The liver is normal . The patien t is status post cholec ystect kaity. The spleen is unrema rkable . No adrena l mass is presen t. The pancre as is normal . The kidney s are normal . The aorta is normal in calibe r. There is no free fluid or adenop athy. There is a small fat-co ntaini ng umbili ishmael hernia . PELVIS : The append ix is normal . Enteri c contra st is noted to the level of the rectum . There is divert iculos is withou t divert iculit is. The urinar y bladde r is unrema rkable . There is no signif icant free fluid or adenop athy. There are diffus e degene rative change s of the spine. IMPRES AMARILIS: No eviden ce of acute intra- abdomi nal proces s. Films review ed , interp reted and dictat ed by Dr. Bro Rico Transc ribed by Trung Dominguez PA-C. Dictat ed By: Bro Ivy Transc ribed By: Bro Rico Transc ribed On: 10:56 AM Electr onical ly signed by: Bro Ivy Thank you for referr allen ZANDRA CHOWDHURY to [facility]. Legall y authfely thorntonate d by KRAINA FLETCHER 05-27 10:56: 41 CC'ed Logic: Orderi ng Provid er: FELY TELLO Attend ing Provid er: FELY TELLO Admitt ing Provid er: FELY TELLO [email or web address] [facility] [address] [place] [address], [place], [address], 05/29/2023 14:33:11 Result Notes Documentation Provider Name and Address Organization Details Recorded Time Ct, Chest, W/ Contrast : [address] [address] Name: ZANDRA CHOWDHURY Exam Date: 05/28/2023 : 1965 Age 57 years Gender: F Physician: OMER GEIGER Facility: [facility] Facility HSV: Outpatient Exam: CT CHEST W CT SCAN OF THE CHEST WITH CONTRAST COMPARISON: None. HISTORY: Epigastric pain. PROCEDURE: The patient was injected with IV contrast. Axial images were obtained from the lung apex to the mid abdomen by computed tomography. FINDINGS: CHEST: There is no axillary adenopathy. There is no hilar or mediastinal adenopathy. Heart size is normal. There is no pericardial or pleural effusion. There are scattered, small calcified and noncalcified pulmonary nodules measuring up to 5 mm. These are likely benign granulomas. No suspicious infiltrate or nodules identified. There is mild circumferential esophageal wall thickening. There is a tiny sliding-type hiatal hernia. There are degenerative changes of the spine. IMPRESSION: 1. Scattered pulmonary nodules are likely benign granulomas. 2. Small sliding-type hernia and esophageal wall thickening may represent underlying esophagitis. Films reviewed , interpreted and dictated by Dr. Bro Rico Transcribed by Trung Dominguez PA-C. Dictated By: Bro Ivy Transcribed By: Bro Rico Transcribed On: 05/28/2023 10:55 AM Electronically signed by: Bro Ivy 05/28/2023 Thank you for referring ZANDRA CHOWDHURY to [facility]. Legally authenticated by WYATT FLETCHER 2023-05-28 10:55:14 CC'ed Logic: Ordering Provider: FELY TELLO Attending Provider: FELY TELLO Admitting [facility] 05/29/[facility]23 14:33:11 Ct, Abdomen, W/ Contrast : [facility] [address] [place] [address] Name: ZANDRA CHOWDHURY Exam Date: 05/28/2023 : 1965 Age 57 years Gender: F Physician: OMER GEIGER Facility: [facility] Facility HSV: Outpatient Exam: CT ABD W CT ABDOMEN AND PELVIS WITH CONTRAST HISTORY: Epigastric pain. PROCEDURE: The patient was injected with 75 ml of Isovue. Oral contrast was also administered. Axial images were obtained from the lung bases to the pubic symphysis by computed tomography. FINDINGS: ABDOMEN: The liver is normal. The patient is status post cholecystectomy. The spleen is unremarkable. No adrenal mass is present. The pancreas is normal. The kidneys are normal. The aorta is normal in caliber. There is no free fluid or adenopathy. There is a small fat-containing umbilical hernia. PELVIS: The appendix is normal. Enteric contrast is noted to the level of the rectum. There is diverticulosis without diverticulitis. The urinary bladder is unremarkable. There is no significant free fluid or adenopathy. There are diffuse degenerative changes of the spine. IMPRESSION: No evidence of acute intra-abdominal process. Films reviewed , interpreted and dictated by Dr. Bro Rico Transcribed by Trung Dominguez PA-C. Dictated By: Bro Ivy Transcribed By: Bro Rico Transcribed On: 05/28/2023 10:56 AM Electronically signed by: Bro Ivy 05/28/2023 Thank you for referring ZANDRA CHOWDHURY to [facility]. Legally authenticated by WYATT FLETCHER 2023-05-28 10:56:41 CC'ed Logic: Ordering Provider: FELY TELLO Attending Provider: FELY TELLO Admitting Provider: FELY Breaux [facility] [place] [facility] [place] 05/29/2023 14:33:11 Problems Name Problem SNOMED Code Status Onset Date Resolution Date Notes Provider Name and Address Organization Details Recorded Time Gastroesophag eal reflux disease without esophagitis 028157612 Active [address], [place], [address] , [place] - [facility] [place] 3 08:35:27 Hiatal hernia 93139455 Active 2022 Rich Zhao PA-C [address], [place] [id number] , [place] - [facility] & [place] 3 10:31:23 Epigastric discomfort 283666473 Active 2022 Rich Zhao PA-C [address] , [facility] [address] , [place] - [facility] & [place] 3 10:31:29 Right upper quadrant pain 301791303 Active 2023 Rich Zhao PA-C [address], [facility] [address] , [place] - [facility] & [place] 4 12:41:55 Problem Notes None recorded. Procedures Surgical History Date Name Laterality Status Provider Name and Address Organization Details Recorded Time 3 Procedure Note completed [address], [address], [place] - [facility] & [place] 03/05/2023 08:34:12 Imaging Results None recorded. Procedure Notes None recorded. Medical Equipment None Reported. Allergies No known drug allergies Medications Name Sig Start Date Stop Date Status Note LastModified by Organization Details LastModified Time cyclobenzap rine 10 mg tablet TAKE ONE TABLET BY MOUTH TWICE DAILY NEEDED FOR muscle SPASMS MAY CAUSE DROWSINES S 07/08 completed Not Available Not Available Not Available azithromyci n 250 mg tablet TAKE 2 TABLETS BY MOUTH ON DAY 1, THEN TAKE 1 TABLET DAILY ON DAYS 2-5 07/08 completed Not Available Not Available Not Available lisinopril 20 mg tablet TAKE ONE TABLET BY MOUTH EVERY DAY active Not Available Not Available No t Available omeprazole 40 mg capsule,del ayed release TAKE ONE CAPSULE BY MOUTH EVERY DAY 30 minutes BEFORE morning meal active Not Available Not Available No t Available Sudogest 30 mg tablet TAKE TWO TABLETS BY MOUTH EVERY 6 HOURS NEEDED FOR nasal congestio n, DO not exceed 4 doses in 24 hours 07/08 completed Not Available Not Available Not Available levothyroxi ne 75 mcg tablet TAKE ONE TABLET BY MOUTH EVERY DAY ON an EMPTY stomach 07/08 completed Not Available Not Available Not Available levothyroxi ne 100 mcg tablet TAKE ONE TABLET BY MOUTH EVERY DAY 07/08 completed Not Available Not Available Not Available levothyroxi ne 88 mcg tablet TAKE ONE TABLET BY MOUTH EVERY DAY IN THE MORNING ON an EMPTY stomach active Not Available Not Available No t Available famotidine 20 mg tablet Take 1 tablet twice a day by oral route. 07/08 completed Not Available Not Available Not Available pantoprazol e 40 mg tablet,sejal yed release TAKE ONE TABLET BY MOUTH EVERY DAY 07/08 completed Not Available Not Available Not Available methylpredn isolone 4 mg tablets in a dose pack TAKE ACCORDING TO PACKAGE INSTRUCTI ONS --TAKE WITH FOOD-- -- FINISH ALL MEDICINE -- 07/08 completed Not Available Not Available Not Available bromphenira mine-pseudo ephedrine-D M 2 mg-30 mg-10 mg/5 mL oral syrup TAKE 1 TO 2 TEASPOON( S)FUL (5 TO 10 ML) BY MOUTH FOUR TIMES DAILY NEEDED 07/08 completed Not Available Not Available Not Available fluticasone propionate 50 mcg/actuati on nasal spray,suspe nsion INSTILL ONE SPRAY IN EACH NOSTRIL EVERY DAY active Not Available Not Available No t Available sertraline 50 mg tablet TAKE ONE TABLET BY MOUTH EVERY DAY active Not Available Not Available No t Available Ventolin HFA 90 mcg/actuati on aerosol inhaler INHALE 1-2 PUFF(S) BY MOUTH EVERY 4 HOURS NEEDED 07/08 completed Not Available Not Available Not Available rosuvastati n 5 mg tablet TAKE ONE TABLET BY MOUTH EVERY DAY active Not Available Not Available No t Available levothyroxi ne 07/08 completed Not Available Not Available Not Available Multi Complete with Iron active Not Available Not Available No t Available Vitamin D3 50 mcg (2,000 unit) capsule Take by oral route. active Not Available Not Available No t Available Vitals Date Recorded Body height Body mass index (BMI) Body weight Body temperature Oxygen saturation Oxygen saturation in Arterial blood by Pulse oximetry Heart rate Heart rate Systolic blood pressure Diastolic blood pressure Provider Name and Address Organization Details Last Updated DateTime 4 157.48 cm 32.3 kg/m2 79753.4 1 g 98.2 [degF] 97 % 97 % 78 /min 67 /min 127 mm[Hg] 73 mm[Hg] Renee [facility] [place] 4 09:31:06 Date Recorded Body height Body mass index (BMI) Body weight Body temperature Oxygen saturation Oxygen saturation in Arterial blood by Pulse oximetry Heart rate Heart rate Systolic blood pressure Diastolic blood pressure Provider Name and Address Organization Details Last Updated DateTime 4 157.48 cm 31.7 kg/m2 32286.2 g 98.1 [degF] 97 % 97 % 66 /min 68 /min 133 mm[Hg] 80 mm[Hg] David [facility] [place] 4 08:38:54 Date Recorded Body height Body mass index (BMI) Body weight Body temperature Oxygen saturation Oxygen saturation in Arterial blood by Pulse oximetry Heart rate Systolic blood pressure Diastolic blood pressure Provider Name and Address Organization Details Last Updated DateTime 5 157.48 cm 30.6 kg/m2 51956.6 4 g 97.3 [degF] 98 % 98 % 64 /min 120 mm[Hg] 78 mm[Hg] [facility] [place] 5 08:38:57 Date Recorded Body weight Body mass index (BMI) Body height Body temperature Oxygen saturation Oxygen saturation in Arterial blood by Pulse oximetry Heart rate Heart rate Systolic blood pressure Diastolic blood pressure Provider Name and Address Organization Details Last Updated DateTime 3 74542.9 4 g 31.3 kg/m2 157.48 cm 97.7 [degF] 98 % 98 % 80 /min 72 /min 112 mm[Hg] 73 mm[Hg] David German [place] - [facility] [place] 10:11:03 Social History Question Answer Notes LastModified by [employer] Details LastModified Time What Is Your Level Of Caffeine Consumption? Moderate Information not available 03/05/2023 Has Tobacco Cessation Counseling Been Provided? No [email or web address] Information not available 03/05/2023 Sex: Unknown Functional Status Question Answer Note LastModified by Organizat ion Details LastModified Time Do you use any illicit or recreational drugs? No Information not available 03/05/2023 Do you or have you ever used any other forms of tobacco or nicotine? No [email or web address] Information not available 03/05/2023 Mental Status None recorded. Family History Nothing Reported. Medical History No medical history recorded. Gynecological HistoryNo gynecological history recorded. Obstetrics History GPAL:G 0 P 0 0 0 0 Past Encounters Encounter ID Performer Location Encounter Start Date Encounter Closed Date Diagnosis/Indication Diagnosis SNOMED-CT Code Diagnosis ICD10 Code Diagnosis Note [id number] Rich Zhao PA-C [facility] [address] [address] 03/05/2023 09:52:08 03/05/2023 11:05:11 Gastroesophageal reflux disease without esophagitis 750804261 K21.9 Hiatal hernia 26415053 K 44.9 Epigastric discomfort 11 1755742 R10.13 [id number] Omer Geiger MD [facility] [address] [address] 05/07/2023 09:06:27 05/07/2023 10:10:36 Gastroesophageal reflux disease without esophagitis 386617855 K21.9 Hiatal hernia 86999322 K 44.9 Epigastric discomfort 11 9853551 R10.13 [id number] Rich Zhao PA-C [facility] [address] [place] [address] 07/09/2023 08:29:59 07/09/2023 09:29:01 Gastroesophageal reflux disease without esophagitis 572862206 K21.9 Hiatal hernia 10560870 K 44.9 Right uppe r quadrant pain 596696043 R10.11 [id number] Rich Zhao PA-C [facility] [address] [facility] [address] [place] [address] 07/08/2024 08:32:04 07/08/2024 09:12:08 Gastroesophageal reflux disease without esophagitis 847774868 K21.9 Hiatal hernia 26192121 K 44.9 Health Concerns Section Related Observation LastModified by Organization Detai ls LastModified Time None Recorded Concern Status LastModified by Organization Details LastModified Time None Recorded Advance Directives Directive None Recorded Payers Insurance Date Sequence Insurance Name Policy Number Policy Wylie Covered Member ID Wylie Member ID Guarantor Name 07/11/2024 1 [facility] (MEDICAID HMO) Zandra Chowdhury [id number] 07/08/2024 1 [facility] (MEDICAID REPLACEMENT - HMO) [id number] Zandra Chowdhury [id number] Notes Date Note Type Note Provider Name and Address Organization Details Recorded Time 03/05/2023 text/html Ms. Chowdhury is a pleasant 57-year-old female who was referred by Kristen Moya for evaluation of chronic GERD. She has a history of EGD 07/12/2018 that showed a 4 cm sliding hiatal hernia and chronic gastritis. She is taking famotidine 20 mg once daily but has frequent heartburn despite this. Omeprazole worked well for her reflux symptoms previously. She complains of epigastric pressure type discomfort that is worse with wearing a bra. She denies dysphagia or chest pain. Rich Zhao PA-C [address] [facility], [place], [address], [place] - [facility] - [place] & [place] 03/05/2023 11:12:22 05/07/2023 text/html PREVIOUS (): Ms. Chowdhury is a pleasant 57-year-old female who was referred by Kristen Moya for evaluation of chronic GERD. She has a history of EGD 07/12/2018 that showed a 4 cm sliding hiatal hernia and chronic gastritis. She is taking famotidine 20 mg once daily but has frequent heartburn despite this. Omeprazole worked well for her reflux symptoms previously. She complains of epigastric pressure type discomfort that is worse with wearing a bra. She denies dysphagia or chest pain. CURRENT: Mrs. Chowdhury Returns today for follow-up. She is doing well. She is taking omeprazole 40 mg p.o. daily. She underwent EGD that showed grade a esophagitis with a 5 cm sliding hiatal hernia. Biopsies otherwise negative. Jacobo probe showed DeMeester score over 40. Increased acid exposure time. Patient continues describe epigastric abdominal pain exacerbated by external palpation. Omer Geiger MD [address] [facility], [place], [address], [facility] - [facility] & [place] 05/07/2023 10:06:54 07/09/2023 text/html PREVIOUS (): Ms. Chowdhury is a pleasant 57-year-old female who was referred by Kristen Moya for evaluation of chronic GERD. She has a history of EGD 07/12/2018 that showed a 4 cm sliding hiatal hernia and chronic gastritis. She is taking famotidine 20 mg once daily but has frequent heartburn despite this. Omeprazole worked well for her reflux symptoms previously. She complains of epigastric pressure type discomfort that is worse with wearing a bra. She denies dysphagia or chest pain. PREVIOUS: Mrs. Chowdhury Returns today for follow-up. She is doing well. She is taking omeprazole 40 mg p.o. daily. She underwent EGD that showed grade a esophagitis with a 5 cm sliding hiatal hernia. Biopsies otherwise negative. Jacobo probe showed DeMeester score over 40. Increased acid exposure time. Patient continues describe epigastric abdominal pain exacerbated by external palpation. CURRENT (07/09/23): Ms. Chowdhury returns to the office today for follow-up regarding GERD and right sided upper abdominal discomfort. She recently underwent CT chest and abdomen that showed a small hiatal hernia with mild distal esophageal thickening c/w esophagitis. She has continued Omeprazole 40 mg p.o. once daily with good control over her GERD symptoms. She has continued to have RUQ discomfort. This is made worse be wearing a bra. She notes tenderness when pressing on her lower ribs on the right. Rich Zhao PA-C [address], [place], [address], [facility] 07/09/2023 12:45:38 07/08/2024 text/html CURRENT (07/08/24 ): Ms. Chowdhury presents to the office today for 1 year follow-up regarding GERD and hiatal hernia. Her symptoms have remained stable over the past 1 year with use of omeprazole 40 mg once daily. She denies breakthrough heartburn or regurgitation. She is without physical complaint at this time. Rich Zhao PA-C [address], [place], [address], [facility] 07/08/2024 17:09:40 OBGyn Episode No OBEpisode recorded.
== END 2024-09-12 23:59 | disposition home or self-care (01) ==
LOC: RAD 11:15
PROVIDERS: PCP Family Medicine; Visit Provider Nurse Practitioner
DX: M54.30 Sciatica, unspecified side (principal); M79.669 Pain in unspecified lower leg; W19.XXXA Unspecified fall, initial encounter
CPT/HCPCS: 73590

== ENCOUNTER 2024-10-11 07:46 | Outpatient (CLI) | payer OTHER, SELFPAY ==
--- OUTSIDE RECORDS SUMMARY | 2024-06-22 05:15 | XMS_ITS ---
Author Organization [facility] Address [address] [facility] [address] [place] [id number] Care Team Providers Care Roller Maker Name Role Phone Toribio Capellan Primary Care Provider [phone] Kristen Moya Unavailable [phone] Allergies No Known Allergies Results Component Value Reference Range Notes P-Comprehensive Metabolic Pa trupti (CMP) Reviewed date:06/23/2024 02:56:28 PM Interpretation:Normal Performing Lab: Notes/Report: Test performed by [facility] [employer] [address] [place] [address] , [address], [place] [address] Harjinder Angeles MD, Human Performance Technologist CLIA: [id number] Sodium 140 135-145 mmol/L Potassium 4.6 3.5-5.3 [...] Interpretation:Normal Performing Lab: Notes/Report: Test performed by [facility] [employer] [address] [place] [address] [address], [place] [address] Harjinder Angeles MD, Human Performance Technologist CLIA: [id number] Cholesterol 181 <200 mg/dL Triglycerides 70 <150 [...] Interpretation:Normal Performing Lab: Notes/Report: Test performed by [facility] [employer] [address] [place] [address] , [address], [place] [address] Harjinder Angeles MD, Human Performance Technologist CLIA: [id number] Vitamin D 25-Hydroxy 38.1 30.0-100.0 ng/mL Interpretation [...] day; Duration: 30 day(s) Active Vital Signs Blood pressure systolic 130 mm Hg 06/23/19 25 Blood pressure diastolic 80 mm Hg 025 Heart Rate 76 /min 06/22/2024 Height 62.50 in 06/22/2024 Weight 163.2 lbs 06/22/2024 BMI 29.37 kg/m2 06/22/2024 Encounters Encounter Location Date Provider Diagnosis [facility] [address] [facility] [address] [place], [place] [phone] 06/22/2024 Kristen Crowdy Dyslipidemia E78.5 ; Essential [...] Reason: Progress Notes * CIARA JOHNSONDOB:1965 ([age] yo F)Acc No.[id number]:06/22/2024 Progress Notes Patient: CIARA BERRY Provider: KYLEIGH Murdock :1965 A ge:58 Y S ex:Female Date:06/22/2024 Address:[address] [place], [place] [phone] Pcp:Toribio Capellan Subjective: * Chief Complaints: * [...] Hospitalization/Major Diagno stic Procedure: n one , [facility] ER-abdominal pain/diarrhea 08/07/08, [facility] ER-rash 10/21/08, [facility] ER - abdominal pain, diarrhea 02/05/17. [...] D deficiency - E55.9 4 . B ND 29.0-29.9,adult - Z68.29 Plan: * Treatment: Value [...] T riglycerides 70 <150 - mg/dL * Mehnaz Cervantes 06/23/2024 02: 56:14 PM [...] * Images: Billing Information: * Visit Code: 79693 Office Visit, Est Pt., Level 4. * Procedure Codes: 3075F SYST BP GE 130 - 139MM HG. 3079F DIAST BP 80-89 MM HG. * Electronic signature of KYLEIGH Martinez on 10/11/2024 at 07:48 AM EDT Sign off status: Pending * Provider: KYLEIGH Murdock Date: 0 06/22/2024 Generated for [place] shaw/Bhavna/Isabelleitting on: 0 10/11/2024 07:48 AM EDT History and Physical Notes * HPI [...]
--- OUTSIDE RECORDS SUMMARY | 2024-09-14 06:15 | XMS_ITS ---
Author Organization [facility] Address [address] [facility] [address] [place] [id number] Care Team Providers Care Sales Merchandise Associate Name Role Phone Toribio Capellan Primary Care Provider Kristen Moya Unavailable [phone] Allergies No Known Allergies REASON FOR VISIT [...] day; Duration: 90 days Active Vital Signs Blood pressure systolic 133 mm Hg 09/15/19 25 Blood pressure diastolic 78 mm Hg 025 Heart Rate 72 /min 09/14/2024 Height 62.50 in 09/14/2024 Weight 165.8 lbs 09/14/2024 BMI 29.84 kg/m2 09/14/2024 Encounters Encounter Location Date Provider Diagnosis [facility] [address] [facility] [address] [place] [phone] 09/14/2024 Kristen Moya Obstructive sleep ap frank [...] * CIARA JOHNSONDOB:1965 ([age] yo F)Acc No.[id number]:09/14/2024 Progress Notes Patient: CIARA BERRY Provider: KYLEIGH Murdock :1965 A ge:58 Y S ex:Female Date:09/14/2024 Address:[address] [place] [address] [place] , [facility] [id number] Pcp:Toribio Capellan Subjective: * Chief Complaints: * 1 . Discuss sleep apnea, c-pap machine. * HPI: N eurology: 58 year old female presents with c/o Sleep Disturbance P t is here f/u on sleep apnea. Pt states she needs today's office note faxed to [place].. * ROS: D ERMATOLOGY: no R chantal. [...] Hospitalization/Major Diagno stic Procedure: n one , [facility] ER-abdominal pain/diarrhea 08/07/08, [facility] ER-rash 10/21/08, [facility] ER - abdominal pain, diarrhea 02/05/17. [...] apnea - G47.33 (Primary) 2 . B NV 29.0-29.9,adult - Z68.29 Plan: * Treatment: * Procedure Codes: 1 036F TOBACCO NON-USER, G8420 BMI<30 AND >=22 CALC & DOCU, G8783 BP SCR PRFRM RCMDD DEFIND SCR INTVL, G8752 MOST RECENT SYSTOLIC BP < 140MM HG, G8754 MOST RECENT DIASTOLIC BP < 90MM HG * Follow Up: p rn * Images: Billing Information: * Visit Code: 27619 Office Visit, Est Pt., Level 3. * [...] status: Pending * Provider: KYLEIGH Murdock Date: 09/14/2024 Generated for [place] shaw/Bhavna/eTransmitting on: 10/11/2024 07:48 AM EDT History and Physical [...]
--- OUTSIDE RECORDS SUMMARY | 2024-09-27 10:35 | XMS_ITS ---
Author Organization [facility] Address [address] [facility] [address] [facility] [address] [place] [phone] Care Team Providers Care Director Sales And Marketing Name Role Phone Toribio Capellan Primary Care Provider REASON FOR VISIT due pedro,col Encounters Encounter Location Date Provider Diagnosis [facility] [address] [place] [phone] 09/27/2024 Toribio Capellan Screening for breast cancer Z12.39 Assessments Encounter Date Diagnosis (ICD Code) Assessment Notes Treatment Notes Treatment Clinical Notes Section Notes 09/27/2024 Screening for breast cancer (ICD-10 - Z12.39) Plan Of Treatment Pending Test Test Name Order Date Mammogram 09/27/2024 Progress Notes * ELIZABETH CIARADOB:1965 ([age] yo F)Acc No.[id number]:09/27/2024 Patient: CIARA BERRY :1965 A ge:58 Y S ex:Female Address:[address], [place] [address] Subjective: * Chief Complaints: * D ue pedro,col * Medical History: * Surgical History: * Hospitalization/Major Diagno stic Procedure: * Medications: Objective: * Vitals: * Physical Examination: Assessment: * Assessment: 1. S creening for breast cancer - Z12.39 (Primary) Plan: * Treatment: * Procedure Codes: * true * Date: Generated for Printi ng/Faxing/eTransmitting on: 0 10/11/2024 07:48 AM EDT
--- NOTE | 2024-10-11 07:47 | MM_ITS ---
PROCEDURE INFORMATION: Exam: MG Bilateral Screening 3D Mammography Exam date and time: 10/11/2024 8:04 AM Age: 58 years old Clinical indication: Screening examination. A paternal great aunt had breast cancer. TECHNIQUE: Imaging protocol: Bilateral Screening tomosynthesis and 2D mammography including computer-aided detection (CAD) when performed. COMPARISON: 1. MG MM DIG SCREENING MAMM BI W/CAD 10/06/2023 3:35 PM 2. MG MM DIG MAMM DX UNILAT LT CAD 10/21/2021 12:57 PM 3. MG MM DIG SCREENING MAMM BI W/CAD 09/30/2021 3:07 PM 4. MG MM DIG SCREENING MAMM BI W/CAD 08/18/2019 9:17 AM FINDINGS: MAMMOGRAPHY: Breast composition: There are scattered areas of fibroglandular density. Mass: None. Architectural distortion: None. Calcifications: No suspicious calcifications. Asymmetric density: No developing asymmetry. Skin thickening: None. Axillary adenopathy: None. IMPRESSION: No mammographic evidence of malignancy. Annual screening is recommended unless otherwise clinically indicated. ASSESSMENT: BI-RADS Category 1: Negative.
--- OUTSIDE RECORDS SUMMARY | 2024-10-11 07:48 | XMS_ITS | Patient Health Record ---
Author Organization [facility] Address [address] [facility] [address] [place] [id number] Care Team Providers Care Noise Abatement Engineer Name Role Phone Toribio Capellan Primary Care Provider Kylee Chavarria Unavailable [phone] Kristen Moya Unavailable [phone] Allergies No Known Allergies Results Component Value Reference Range Notes P-Vitamin D 25-Hydroxy Reviewed date:06/23/2024 02:56:29 PM Interpretation:Normal Performing Lab: Notes/Report: Test performed by [facility] [address] [place], [place] [address] [address] , [address], [place] [address] Harjinder Angeles MD, Manufacturing Process Engineer CLIA: [id number] Vitamin D 25-Hydroxy 38.1 30.0-100.0 ng/mL Interpretation of Vitamin D 25 OH: < 20 ng/mL - Deficiency 20 - 29 ng/mL - Insufficiency 30 - 100 ng/mL - Sufficiency > 100 ng/mL - Super-therapeutic- toxicity may occur above this level. Clinical correlation required. P-Lipid Panel Reviewed date:06/23/2024 02:56:28 PM Interpretation:Normal Performing Lab: Notes/Report: Test performed by [facility] [address] [place], [place] [address] [address] , [address], [place] [address] Harjinder Angeles MD, Manufacturing Process Engineer CLIA: [id number] Cholesterol 181 <200 mg/dL Triglycerides 70 <150 [...] Results: 88 Units: mg/dL % Change: +39% P-Comprehensive Metabolic Pa trupti (CMP) Reviewed date:06/23/2024 02:56:28 PM Interpretation:Normal Performing Lab: Notes/Report: Test performed by [facility] [address] [place] [address] , [address], [place] [address] Harjinder Angeles MD, Manufacturing Process Engineer CLIA: [id number] Sodium 140 135-145 mmol/L Potassium 4.6 3.5-5.3 [...] 0.5 <0.2-1.2 mg/dL A/G Ratio 1.4 1.1-2.5 Influenza Screen (in house) Reviewed date:03/15/2024 08:43:21 PM Interpretation:neg Performing Lab: Notes/Report: neg results neg Rapid Strep- Inhouse Reviewed date:03/15/2024 08:43:35 PM Interpretation:neg Performing Lab: Notes/Report: neg strep test neg Covid test (in house) Reviewed date:03/15/2024 08:43:09 PM Interpretation:neg Performing Lab: Notes/Report: neg Result: neg CBC Venipuncture (in house) Reviewed date:04/20/2024 04:56:47 [...] date:04/26/2024 10:51:57 AM Interpretation: Performing Lab: Notes/Report: CLIA: [id number] Harjinder Angeles MD, Manufacturing Process Engineer [facility] , [address], [place] [address] Test performed by [facility] Vitamin B12 [phone] pg/mL P-Comprehensive Metabolic Pa trupti (CMP) Reviewed date:04/26/2024 10:51:57 AM Interpretation: Performing Lab: Notes/Report: Test performed by [employer] [facility] [address] [place] [address] , [address], [place] [address] Harjinder Angeles MD, Manufacturing Process Engineer CLIA: [id number] Sodium 143 135-145 mmol/L Potassium 4.8 3.5-5.3 [...] Interpretation: Performing Lab: Notes/Report: Test performed by [facility] [address] [place] [address] , [place] [address] Harjinder Angeles MD, Manufacturing Process Engineer CLIA: [id number] Thyroxine Free (free T4) 1.25 0.86-1.76 ng/dL P-TSH Reviewed date:04/26/2024 10:51:57 AM Interpretation: Performing Lab: Notes/Report: Test performed by [facility] [address] [place] [address] , [address], [place] [address] Harjinder Angeles MD, Manufacturing Process Engineer CLIA: [id number] TSH 1.47 0.43-5.25 mU/L P-Vitamin D 25-Hydroxy Reviewed date:04/26/2024 10:51:57 AM Interpretation: Performing Lab: Notes/Report: Test performed by [facility] [address] [place] [address] , [address], [place] [address] Harjinder Angeles MD, Manufacturing Process Engineer CLIA: [id number] Vitamin D 25-Hydroxy 23.4 30.0-100.0 ng/mL Interpretation of Vitamin D 25 OH: < 20 ng/mL - Deficiency 20 - 29 ng/mL - Insufficiency 30 - 100 ng/mL - Sufficiency > 100 ng/mL - Super-therapeutic- toxicity may occur above this level. Clinical correlation required. sleep study Reviewed date:06/17/2024 04:44:35 PM Interpretation: Performing Lab: Notes/Report: Medications Medication SIG (Take, Route, Frequency, Duration) Notes Start Date End Date Status Levothyroxine Sodium 88 mcg 1 tablet by mouth on empty stomach daily; Duration: 90 days Active Rosuvastatin Calcium 5 mg TAKE ONE TABLE T BY MOUTH EVERY DAY Orally Once a day; Duration: 90 days Active Sertraline HCl 50 mg 1 tablet orally onc e a day; Duration: 90 days Active Vitamin D3 50 MCG (2000 UT) 1 capsule Or ally Once a day; Duration: 30 day(s) Active Centrum Silver Ultra Womens - 1 tab(s) orally once a day; Duration: 30 day(s) Active Omeprazole 40 mg TAKE ONE CAPSULE BY MOUTH EVERY DAY 30 minutes BEFORE morning meal; Duration: 90 Active Lisinopril 20 mg TAKE ONE TABLET BY M OUTH EVERY DAY; Duration: 30 Active CPAP machine and supplies - as directed as directed 08/2906/17/2024 Active Immunizations Vaccine Route Administration Date Status Comme nts Tetanus Tdap-Adacel (over 7yrs) Unknown 01/23/2021 Admi nistered Problems Problem Type SNOMED Code ICD Code Onset Dates Problem Status W/U Status Risk Notes Problem Vitamin D deficiency (81930866) Vitamin D deficiency (E55.9) Active confirmed Problem Essential hypertension (76003879) Essential hypertension (I10) Active confirmed Problem Abnormal mammogram (362486024) Abnormal mammogram (R92.8) Active confirmed Problem Paresthesia (56648279) Paresthesia (R20.2) Active confirmed Problem Obstructive sleep apnea (40858157) Obstructive sleep apnea (G47.33) Active confirmed Problem Mixed anxiety and depressive disorder (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) Depression with anxiety (F41.8) Active confirmed Problem Irritable bowel syndrome with diarrhea (335638118) Irritable bowel syndrome with diarrhea (K58.0) Active confirmed Problem Acquired hypothyroidism (260403288) Acquired hypothyroidism (E03.9) Active confirmed Problem Cervical disc disorder (988537687) DDD (degenerative disc disease), cervical (M50.30) Active confirmed Problem Dyslipidemia (119009676) Dyslipidemia (E78.5) Active confirmed Problem Bilateral tinnitus (0152125957948) Bilateral tinnitus (H93.13) Active confirmed Problem Ultrasonography of breast abnormal (46338892595747890) Abnormal ultrasound of breast (R92.8) Active confirmed Problem Globus sensation (786376362) Globus sensation (F45.8) Active confirmed Problem Gastroesophageal reflux disease (438319518) Gastroesophageal reflux disease, unspecified whether esophagitis present (K21.9) Active confirmed Problem Daytime hypersomnia (21107934732336) 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 Vital Signs Heart Rate 72 /min 09/14/2024 Blood pressure diastolic 78 mm Hg 09/14/2024 Height 62.50 in 09/14/2024 Blood pressure systolic 133 mm Hg 09/14/2024 Weight 165.8 lbs 09/14/2024 BMI 29.84 kg/m2 09/14/2024 Encounters Encounter Location Date Provider Diagnosis [address] [id number] 03/15/2024 Kylee Chavarria URI (upper respirato ry infection) J06.[address] [id number] 04/20/2024 Kristen Nita Daytime hypersomnia G47.10 ; Snoring R06.83 ; Other fatigue R53.83 ; Acquired hypothyroidism E03.9 and Vitamin D deficiency E55.[address] [id number] 06/22/2024 Kristen Crowdy Dyslipidemia E78.5 ; Essential hypertension I10 ; Vitamin D deficiency E55.9 and BMI 29.0-29.9,adult Z68.[address] [id number] 09/14/2024 Kristenhayden Moya Obstructive sleep ap frank G47.33 and BMI 29.0-29.9,adult Z68.[address] [id number] 04/26/2024 Kristen Moya [facility] [address] [place], [place] [id number] 06/17/2024 Kristen Moya Obstructive sleep ap frank G47.33 [facility] [address] [place], [place] [id number] 07/26/2024 Kristen Moya [facility] [address] [place], [place] [id number] 09/06/2024 Toribio Capellan [facility] [address] [place], [place] [id number] 09/27/2024 Toribio Capellan Screening for breast cancer Z12.39 Assessments Encounter Date Diagnosis (ICD Code) Assessment Notes Treatment Notes Treatment Clinical Notes Section Notes 03/15/2024 URI (upper respiratory infection) (ICD-10 - J06.9) fluids, rest, supportive measures for fever/symptom relief, gargles q2h while awake with hot salt water; heat to left neck LAD prn, OTC antihistamine of choice, OTC decongestant and/or cough medicine of choice 04/20/2024 Snoring (ICD-10 - R06.83) 04/20/2024 Daytime hypersomnia (ICD-10 - G47.10) 06/17/2024 Obstructive sleep apnea (ICD-10 - G47.33) 06/22/2024 Dyslipidemia (ICD-10 - E78.5) 09/14/2024 Obstructive sleep apnea (ICD-10 - G47.33) Patient is using her CPAP nightly and does benefit from using it and should continue using it. The pressure has been adjusted and she is tolerating this better. 09/14/2024 BMI 29.0-29.9,adult (ICD-10 - Z68.29) 09/27/2024 Screening for breast cancer (ICD-10 - Z12.39) 06/22/2024 Essential hypertension (ICD-10 - I10) 06/22/2024 Vitamin D deficiency (ICD-10 - E55.9) 04/20/2024 Other fatigue (ICD-10 - R53.83) 04/20/2024 Acquired hypothyroidism (ICD-10 - E03.9) 06/22/2024 BMI 29.0-29.9,adult (ICD-10 - Z68.29) 04/20/2024 Vitamin D deficiency (ICD-10 - E55.9) Plan Of Treatment Pending Test Test Name Order Date Mammogram 09/27/2024 Insurance Providers Payer Name Payer Address Payer Phone Subscriber Number Group Number Insured Name Patient Relationship to Insured Coverage Start Date Coverage End Date [employer] [facility] [address] [place], [place] [id number] [phone] [id number] CIARA JOHNSON Self - patient is the insured Medications Administered Medication Instructions Date of Administration Dosage Notes Dexamethasone 04/30/2005 1 mL Dexamethasone 08/21/2009 1 mL Medical (General) History Medical History History ICD Code Hypothyroidism Depression HTN Hiatal hernia Surgical History Surgery Date(Month/Year) ablation gallbladder removed 07-20-2012 EGD and Colonoscopy, Dr. Calderón, small hia davy hernia, colon WNL 05/11/2017 Hospitalization History Reason Date(Month/Year) [facility] ER - abdominal pain, diarrhea [facility] ER-rash 10/21/[address] [facility] ER-abdominal pain/diarrhea 08/07/08 none
--- OUTSIDE RECORDS SUMMARY | 2024-10-11 07:49 | XMS_ITS | Data Portability ---
Author Organization [place] - [facility] - [facility] ADMIN Address [address] [place] [id number] Assessment Encounter Date Assessment Date Assessment LastModified [...] screening colonoscopy with next repeat due 05/11/2027. [email or web address] Not available 03/05/2023 11:11:43 05/07/2023 05/07/2023 57 [...] screening colonoscopy with next repeat due 05/11/2027. [email or web address] Not available 07/09/2023 12:45:26 07/08/2024 07/08/2024 58 yo female wit h history of hiatal hernia and GERD presenting for 1 year follow-up. 1) GERD/Hiatal Hernia: Symptoms are stable. Continue Omeprazole 40 mg p.o. once daily. Abnormal Jacobo previously. Well managed with medications currently. 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 2) Prophylaxis: She is up to date on screening colonoscopy with next repeat due 05/11/2027. Not available 07/08/2024 17:09:22 Plan of Treatment Reminders Order Date Submit Date Provider Last Modified By Organization Details Last Modified Time Details Appointments None recorded. Lab CMP, serum or plasma 2023 024 [facility], [address], [address], [place], [address], 4 07:14:56 CBC w/ auto diff 2023 024 [facility], [address], [address], [place], [address], 4 07:14:57 Referral None recorded. Procedures None recorded. Surgeries None recorded. Imaging CT, chest + abdomen, w/ contrast [address] (Centralized Scheduling), [address], [place], [address], 4 10:44:55 Medication Orders omeprazole 40 mg capsule,del ayed release 2022 023 [facility], [address] [place] [address] [place], [id number], 4 16:48:44 Patient TargetsNo targets recorded. Patient InstructionsNo instructions recorded. Reason for Referral None Reported. Results Created Date Observation Date Name Description Value Unit Range Abnormal Flag Note LastModifiedBy Organization Detail LastModifiedTime 05/07/19 24 05/08/2023 CMP14 +EGFR glucose 73 mg/dL 70-99 Not Available [facility] ([facility]) [address] [place], [address], 05/08/2023 07:14:56 05/07/19 24 05/08/2023 CMP14 +EGFR BUN 18 mg/dL 6-24 Not Available [facility] ([facility]) [address] [place], [address], 05/08/2023 07:14:56 05/07/19 24 05/08/2023 CMP14 +EGFR creatinine 0.93 mg/dL 0.57-1 .00 Not Available [facility] ([facility]) [address] [facility], [place], [address], 05/08/2023 07:14:56 05/07/19 24 05/08/2023 CMP14 +EGFR eGFR 73 mL/mi n/1.7 3 >59 Not Available [facility] ([facility]) [address] [place], [address], 05/08/2023 07:14:56 05/07/19 24 05/08/2023 CMP14 +EGFR BUN/creatini ne ratio 12-06 Not Available [facility] ([facility]) [address] [place], [address], 05/08/2023 07:14:56 05/07/19 24 05/08/2023 CMP14 +EGFR sodium 142 mmol/ L 134-14 4 Not Available [facility] ([facility]) [address] [facility] [place], [address], 05/08/2023 07:14:56 05/07/19 24 05/08/2023 CMP14 +EGFR potassium 4.2 mmol/ L 3.5-5. 2 Not Available [facility] ([facility]) [address] [facility], [place], [address], 05/08/2023 07:14:56 05/07/19 24 05/08/2023 CMP14 +EGFR chloride 105 mmol/ L 96-106 Not Available [facility] ([facility]) [address] [facility] [place], [address], 05/08/2023 07:14:56 05/07/19 24 05/08/2023 CMP14 +EGFR carbon dioxide, total 26 mmol/ L 20-29 Not Available [facility] ([facility]) [address] [facility], [place], [address], 05/08/2023 07:14:56 05/07/19 24 05/08/2023 CMP14 +EGFR calcium 9.0 mg/dL 8.7-10 .2 Not Available [facility] ([facility]) [address] [facility] [place], [address], 05/08/2023 07:14:56 05/07/19 24 05/08/2023 CMP14 +EGFR protein, total 7.0 g/dL 6.0-8. 5 Not Available [facility] ([facility]) [address] [place], [address], 05/08/2023 07:14:56 05/07/19 24 05/08/2023 CMP14 +EGFR albumin 4.2 g/dL 3.8-4. 9 Not Available [facility] ([facility]) [address] [place], [address], 05/08/2023 07:14:56 05/07/19 24 05/08/2023 CMP14 +EGFR globulin, total 2.8 g/dL 1.5-4. 5 Not Available [facility] ([facility]) [address] [facility], [place], [address], 05/08/2023 07:14:56 05/07/19 24 05/08/2023 CMP14 +EGFR A/G ratio 1.5 1.2-2. 2 Not Available [facility] ([facility]) [address] [facility], [place], [address], 05/08/2023 07:14:56 05/07/19 24 05/08/2023 CMP14 +EGFR bilirubin, total 0.2 mg/dL 0.0-1. 2 Not Available [facility] ([facility]) [address] [facility], [place], [address], 05/08/2023 07:14:56 05/07/19 24 05/08/2023 CMP14 +EGFR alkaline phosphatase 80 IU/L 44-121 Not Available [facility]) [address] [facility], [place], [address], 05/08/2023 07:14:56 05/07/19 24 05/08/2023 CMP14 +EGFR AST (SGOT) 20 IU/L 0-40 Not Available [facility] ([facility]) [address] [facility], [place], [address], 05/08/2023 07:14:56 05/07/19 24 05/08/2023 CMP14 +EGFR ALT (SGPT) 20 IU/L 0-32 Not Available [facility] ([facility]) [address] [facility], [place], [address], 05/08/2023 07:14:56 05/07/19 24 05/08/2023 CBC WITH DIFFE RENTI AL/PL ATELE T WBC 5.8 x10e3 /uL 3.4-10 .8 Not Available [facility] ([facility]) [address] [facility], [place], [address], 05/08/2023 07:14:57 05/07/19 24 05/08/2023 CBC WITH DIFFE RENTI AL/PL ATELE T RBC 4.25 x10e6 /uL 3.77-5 .28 Not Available [facility] ([facility]) [address] [facility], [place], [address], 05/08/2023 07:14:57 05/07/19 24 05/08/2023 CBC WITH DIFFE RENTI AL/PL ATELE T hemoglobin 13.2 g/dL 11.1-1 5.9 Not Available [facility] ([facility]) [address] [facility], [place], [address], 05/08/2023 07:14:57 05/07/19 24 05/08/2023 CBC WITH DIFFE RENTI AL/PL ATELE T hematocrit 39.8 % 34.0-4 6.6 Not Available [facility] ([facility]) [address] [place], [address], 05/08/2023 07:14:57 05/07/19 24 05/08/2023 CBC WITH DIFFE RENTI AL/PL ATELE T MCV 94 fL 79-97 Not Available [facility] ([facility]) [address] [place], [address], 05/08/2023 07:14:57 05/07/19 24 05/08/2023 CBC WITH DIFFE RENTI AL/PL ATELE T MCH 31.1 pg 26.6-3 3.0 Not Available [facility] ([facility]) [address] [place], [address], 05/08/2023 07:14:57 05/07/19 24 05/08/2023 CBC WITH DIFFE RENTI AL/PL ATELE T MCHC 33.2 g/dL 31.5-3 5.7 Not Available [facility] ([facility]) [address] [facility], [place], [address], 05/08/2023 07:14:57 05/07/19 24 05/08/2023 CBC WITH DIFFE RENTI AL/PL ATELE T RDW 12.9 % 11.7-1 5.4 Not Available [facility] ([facility]) [address] [facility], [place], [address], 05/08/2023 07:14:57 05/07/19 24 05/08/2023 CBC WITH DIFFE RENTI AL/PL ATELE T platelets 279 x10e3 /uL 150-45 0 Not Available [facility] ([facility]) [address] [facility], [place], [address], 05/08/2023 07:14:57 05/07/19 24 05/08/2023 CBC WITH DIFFE RENTI AL/PL ATELE T neutrophils 68 % not estab. Not Available [facility] ([facility]) [address] [facility], [place], [address], 05/08/2023 07:14:57 05/07/19 24 05/08/2023 CBC WITH DIFFE RENTI AL/PL ATELE T lymphs 23 % not estab. Not Available [facility] ([facility]) [address] [facility], [place], [address], 05/08/2023 07:14:57 05/07/19 24 05/08/2023 CBC WITH DIFFE RENTI AL/PL ATELE T monocytes 6 % not estab. Not Available [facility] ([facility]) [address] [facility], [place], [address], 05/08/2023 07:14:57 05/07/19 24 05/08/2023 CBC WITH DIFFE RENTI AL/PL ATELE T eos 2 % not estab. Not Available [facility] ([facility]) [address] [facility], [place], [address], 05/08/2023 07:14:57 05/07/19 24 05/08/2023 CBC WITH DIFFE RENTI AL/PL ATELE T basos 1 % not estab. Not Available [facility] ([facility]) [address] [facility], [place], [address], 05/08/2023 07:14:57 05/07/19 24 05/08/2023 CBC WITH DIFFE RENTI AL/PL ATELE T immature cells PEST CONTROL SERVICE REPRESENTATIVE Not Available [facility] ([facility]) [address] [place], [address], 05/08/2023 07:14:57 05/07/19 24 05/08/2023 CBC WITH DIFFE RENTI AL/PL ATELE T neutrophils (absolute) 4.0 x10e3 /uL 1.4-7. 0 Not Available [facility] ([facility]) [address] [place], [address], 05/08/2023 07:14:57 05/07/19 24 05/08/2023 CBC WITH DIFFE RENTI AL/PL ATELE T lymphs (absolute) 1.3 x10e3 /uL 0.7-3. 1 Not Available [facility] ([facility]) [address] [place], [address], 05/08/2023 07:14:57 05/07/19 24 05/08/2023 CBC WITH DIFFE RENTI AL/PL ATELE T monocytes(ab solute) 0.4 x10e3 /uL 0.1-0. 9 Not Available [facility] ([facility]) [address] [place], [address], 05/08/2023 07:14:57 05/07/19 24 05/08/2023 CBC WITH DIFFE RENTI AL/PL ATELE T eos (absolute) 0.1 x10e3 /uL 0.0-0. 4 Not Available [facility] ([facility]) [address] [place], [address], 05/08/2023 07:14:57 05/07/19 24 05/08/2023 CBC WITH DIFFE RENTI AL/PL ATELE T baso (absolute) 0.0 x10e3 /uL 0.0-0. 2 Not Available [facility] ([facility]) [address] [facility], [place], [address], 05/08/2023 07:14:57 05/07/19 24 05/08/2023 CBC WITH DIFFE RENTI AL/PL ATELE T immature granulocytes 0 % not estab. Not Available [facility] ([facility]) [address] [facility], [place], [address], 05/08/2023 07:14:57 05/07/19 24 05/08/2023 CBC WITH DIFFE RENTI AL/PL ATELE T immature grans (abs) 0.0 x10e3 /uL 0.0-0. 1 Not Available [facility] ([facility]) [address] [facility], [place], [address], 05/08/2023 07:14:57 05/07/19 24 05/08/2023 CBC WITH DIFFE RENTI AL/PL ATELE T NRBC PEST CONTROL SERVICE REPRESENTATIVE Not Available [facility] ([facility]) [address] [facility], [place], [address], 05/08/2023 07:14:57 05/07/19 24 05/08/2023 CBC WITH DIFFE RENTI AL/PL ATELE T hematology comments: PEST CONTROL SERVICE REPRESENTATIVE Not Available [facility] ([facility]) [address] [facility], [place], [address], 05/08/2023 07:14:57 05/28/19 24 05/28/2023 CT, chest , w/ contr ast [facility] [address] [place] [address] Phone: Fax: Name: ZANDRA CHOWDHURY Exam Date: : [birth year] Age 57 years Gender : F Access ion: [id number] Physic mariano: CASEOMER Facili ty: [place] Facili ty HSV: Outpat ient Exam: CT [...] Thank you for referr ZANDRA Benito to [facility] Hospit [facility]. Legall y authen ticate d by KARINA FLETCHER 2023-05-27 10:55: 14 CC'ed Logic: Orderi ng Provid er: CASE OMER Attend ing Provid er: CASE OMER Admitt ing Provid er: CASE OMER [email or web address] [facility] [address], [place], [address], 05/29/2023 14:33:11 05/28/19 24 05/28/2023 CT, abdom en, w/ contr ast [facility] [address] [place] [address] Phone: Fax: Name: ZANDRA CHOWDHURY Exam Date: 024 : [birth year] Age 57 years Gender : F Access ion: [id number] Physic mariano: OMER GEIGER Facili ty: [facility] Facili ty HSV: Outpat ient Exam: [...] you for referr allen ZANDRA CHOWDHURY to [facility]. Legall y authfely thorntonate d by KARINA FLETCHER 05-27 10:56: 41 CC'ed Logic: Orderi ng Provid er: FELY TELLO Attend ing Provid er: FELY TELLO Admitt ing Provid er: FELY TELLO [email or web address] [facility] [address] [place] [address], [place], [address], 05/29/2023 14:33:11 Result Notes Documentation Provider Name and Address Organization Details Recorded Time Ct, Chest, W/ Contrast : [address] [address] Name: ZANDRA CHOWDHURY Exam Date: 05/28/2023 : 1965 Age 57 years Gender: F Physician: MOER GEIGER Facility: [facility] Facility HSV: Outpatient Exam: CT CHEST [...] Thank you for referring ZANDRA CHOWDHURY to [facility]. Legally authenticated by WYATT FLETCHER 2023-05-28 10:55:14 CC'ed Logic: Ordering Provider: FELY TELLO Attending Provider: FELY TELLO [facility] 14:33:11 Ct, Abdomen, W/ Contrast : [facility] [address] [place] [address] Name: ZANDRA CHOWDHURY Exam Date: 05/28/2023 : 1965 Age 57 years Gender: F Physician: OMER GEIGER Facility: [facility] Facility HSV: Outpatient Exam: CT ABD [...] Thank you for referring ZANDRA CHOWDHURY to [facility]. Legally authenticated by WYATT FLETCHER 2023-05-28 10:56:41 CC'ed Logic: Ordering Provider: FELY TELLO Attending Provider: FELY TELLO Admitting Provider: FELY [facility] [place] [facility] [place] 05/29/2023 14:33:11 Problems Name Problem SNOMED Code Status Onset Date Resolution Date Notes Provider Name and Address Organization Details Recorded Time Gastroesophag eal reflux disease without esophagitis 457888706 Active [address], [place], [address] , [place] - [facility] [place] 3 08:35:27 Hiatal hernia 64442525 Active 2022 Rich Zhao PA-C [address], [place] [id number] , [place] - [facility] [place] 3 10:31:23 Epigastric discomfort 394841244 Active 2022 Rich Zhao PA-C [address] , [facility] [address] , [place] - [facility] [place] 3 10:31:29 Right upper quadrant pain 204132622 Active 2023 Rich Zhao PA-C [address], [facility] [address] , [place] - [facility] [place] 4 12:41:55 Problem Notes None recorded. Procedures Surgical History Date Name Laterality Status Provider Name and Address Organization Details Recorded Time 3 Procedure Note completed [address], [address], [place] - [facility] [place] 03/05/2023 08:34:12 Imaging Results None recorded. Procedure [...] Pulse oximetry Heart rate Heart rate Systolic And Diastolic Provider Name and Address Organization Details Last Updated DateTime 4 157.48 cm 32.3 kg/m2 36348.4 1 g 98.2 [degF] 97 % 97 % 78 /min 67 /min 127/73 mm[Hg] Renee Breaux [facility] & [place] 4 09:31:06 Date Recorded Body height Body mass index (BMI) Body weight Body temperature Oxygen saturation Oxygen saturation in Arterial blood by Pulse oximetry Heart rate Heart rate Systolic And Diastolic Provider Name and Address Organization Details Last Updated DateTime 4 157.48 cm 31.7 kg/m2 61849.2 g 98.1 [degF] 97 % 97 % 66 /min 68 /min 133/80 mm[Hg] David German [facility] [place] 4 08:38:54 Date Recorded Body height Body mass index (BMI) Body weight Body temperature Oxygen saturation Oxygen saturation in Arterial blood by Pulse oximetry Heart rate Systolic And Diastolic Provider Name and Address Organization Details Last Updated DateTime 5 157.48 cm 30.6 kg/m2 45562.6 4 g 97.3 [degF] 98 % 98 % 64 /min 120/78 mm[Hg] Alex giang [facility] [place] 5 08:38:57 Date Recorded Body weight Body mass index (BMI) Body height Body temperature Oxygen saturation Oxygen saturation in Arterial blood by Pulse oximetry Heart rate Heart rate Systolic And Diastolic Provider Name and Address Organization Details Last Updated DateTime 3 33289.9 4 g 31.3 kg/m2 157.48 cm 97.7 [degF] 98 % 98 % 80 /min 72 /min 112/73 mm[Hg] David German [place] [facility] [place] 10:11:03 Social History Question Answer Notes LastModified by Organizat ion Details LastModified Time What Is Your Level Of Caffeine Consumption? Moderate Information not available 03/05/2023 Has Tobacco Cessation Counseling Been Provided? No [email or web address] Information not available 03/05/2023 Sex: Unknown Functional Status Question Answer Note LastModified by Organizat ion Details LastModified Time Do you use any illicit or recreational drugs? No [email or web address] Information not available 03/05/2023 Do you or have you ever used any other forms of tobacco or nicotine? No [email or web address] Information not available 03/05/2023 Mental Status None recorded. Family History Nothing Reported. Medical History No medical history recorded. Gynecological HistoryNo gynecological history recorded. Obstetrics History GPAL:G 0 P 0 0 0 0 Past Encounters Encounter ID Performer Location Encounter Start Date Encounter Closed Date Diagnosis/Indication Diagnosis SNOMED-CT Code Diagnosis ICD10 Code Diagnosis Note [id number] Rich Zhao PA-C [facility] [address] [address] 03/05/2023 09:52:08 03/05/2023 11:05:11 Gastroesophageal reflux disease without esophagitis 302314224 K21.9 Hiatal hernia 51357430 K 44.9 Epigastric discomfort 11 5537301 R10.13 [id number] Omer Geiger MD [facility] [address] [address] 05/07/2023 09:06:27 05/07/2023 10:10:36 Gastroesophageal reflux disease without esophagitis 653771685 K21.9 Hiatal hernia 61047951 K 44.9 Epigastric discomfort 11 3889739 R10.13 [id number] Rich Zhao PA-C [facility] [address] [address] 07/09/2023 08:29:59 07/09/2023 09:29:01 Gastroesophageal reflux disease without esophagitis 788765582 K21.9 Hiatal hernia 32052812 K 44.9 Right uppe r quadrant pain 559451333 R10.11 [id number] Rich Zhao PA-C [facility] [address] [facility] [place] [address] 07/08/2024 08:32:04 07/08/2024 09:12:08 Gastroesophageal reflux disease without esophagitis 252351379 K21.9 Hiatal hernia 92427452 K 44.9 Health Concerns Section Related Observation LastModified by Organization Detai ls LastModified Time None Recorded Concern Status LastModified by Organization Details LastModified Time None Recorded Advance Directives Directive None Recorded Payers Insurance Date Sequence Insurance Name Policy Number Policy Wylie Covered Member ID Wylie Member ID Guarantor Name 07/11/2024 [facility] Zandra Chowdhury [id number] 07/08/2024 1 [employer] (MEDICAID REPLACEMENT - HMO) [id number] Zandra Chowdhury [id number] OBGyn Episode No OBEpisode recorded.
== END 2024-10-11 23:59 | disposition home or self-care (01) ==
LOC: RAD 07:46
PROVIDERS: PCP Family Medicine; Visit Provider Family Medicine
DX: Z12.31 Encounter for screening mammogram for malignant neoplasm of breast (principal); R92.323 Mammographic fibroglandular density, bilateral breasts; Z80.3 Family history of malignant neoplasm of breast
CPT/HCPCS: 77063; 77067

== ENCOUNTER 2025-01-13 19:01 | Emergency (ER) | payer OTHER, SELFPAY ==
--- OUTSIDE RECORDS SUMMARY | 2023-09-02 12:15 | XMS_ITS ---
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 :1965 A ge:57 Y S ex:Female Date:09/02/2023 Address:[address], [id number] Pcp:Toribio Capellan Subjective: * Chief Complaints: * 1 . Hand and wrist hurting. * Medical History: Objective: * Vitals: Assessment: Plan: * Treatment: * Images: Billing Information: * Visit Code: * Procedure Codes: * Electronic signature of Heidi Mauricio MD on 01/13/2025 at 07:17 PM EDT Sign off status: Pending * Provider: Ty Mauricio M.D. Date: 0 09/02/2023 Generated for Alysiai ng/Fadestinyg/eTransmitting on: 07:17 PM EDT
--- OUTSIDE RECORDS SUMMARY | 2023-10-02 05:15 | XMS_ITS ---
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 Name Role Phone Toribio Capellan Primary Care Provider Kristen Moya Unavailable [phone] Allergies No Known Allergies Results Component Value Reference Range Notes CBC Venipuncture (in house) Reviewed date:10/02/2023 01:33:32 PM Interpretation: Performing Lab: Notes/Report: wbc 4.8 3.5 - 10 lymph 23.1 15 - 50 mid 6.8 2 - 15 gran 70.1 35 - 80 rbc 4.36 3.5 - 5.5 hgb 13.3 11.5 - 16.5 hct 40.4 35 - 55 mcv 92.7 75 - 100 mch 30.6 25 - 35 mchc 33.0 31 - 38 platlet 285 100 - 400 P-Comprehensive Metabolic Pa trupti (CMP) Reviewed date:10/06/2023 10:21:27 AM Interpretation:Normal Performing Lab: Notes/Report: Test performed by [facility] , [address], [place] [address] Harjinder Angeles MD, Printed Products Assembler CLIA: [id number] Sodium 141 135-145 mmol/L Potassium 5.0 3.5-5.3 mmol/L Chloride 104 97-108 mmol/L CO2 29 22-32 mmol/L Glucose 87 65-99 mg/dL BUN 16 6-20 mg/dL Creatinine 0.71 0.50-1.00 mg/dL Calcium 9.5 8.6-10.4 mg/dL eGFR by Creatinine 100 >59 mL/min/1.73m2 Protein 7.2 6.0-8.3 g/dL Albumin 4.4 3.5-5.3 g/dL Alkaline Phosphatase 78 35-121 IU/L ALT (SGPT) 22 <5-47 IU/L AST (SGOT) 24 <5-40 IU/L Bilirubin, Total 0.5 <0.2-1.2 mg/dL A/G Ratio 1.6 1.1-2.5 mg/dL P-T4 Free (thyroxine) Reviewed date:10/06/2023 10:21:27 AM Interpretation:Normal Performing Lab: Notes/Report: Test performed by [facility] [address] [place] [address] , [place] [address] Harjinder Angeles MD, Printed Products Assembler CLIA: [id number] Thyroxine Free (free T4) 1.26 0.86-1.76 ng/dL P-Lipid Panel Reviewed date:10/06/2023 10:21:27 AM Interpretation:Normal Performing Lab: Notes/Report: Test performed by [facility] [address] [place] [address] , [place] [address] Harjinder Angeles MD, Printed Products Assembler CLIA: [id number] Cholesterol 148 <200 mg/dL Triglycerides 63 <150 mg/dL HDL Cholesterol 72 >39 mg/dL Cholesterol / HDL Ratio 2.06 0.00-4.44 Ratio Non-HDL Cholesterol 76 <130 mg/dL LDL Cholesterol (Calculation) 63 <130 mg/dL LDL Cholesterol Levels* Less than 100 mg/dL Optimal 100 to 129 mg/dL Near Optimal/ Above Optimal 130 to 159 mg/dL Borderline High 160 to 189 mg/dL High 190 mg/dL and above Very High * Categories as recommended by the 2004 ATPIII guidelines LDL/HDL Ratio 0.9 <3.3 Ratio LDL Cholesterol Patient History Test Date: 10/02/2023 LDL Results: 63 Units: mg/dL % Change: - P-TSH Reviewed date:10/06/2023 10:21:27 AM Interpretation:5.74 Performing Lab: Notes/Report: Test performed by [facility] [address] [place] [address] , [place] [address] Harjinder Angeles MD, Printed Products Assembler CLIA: [id number] TSH 5.74 0.43-5.25 mU/L P-Vitamin D 25-Hydroxy Reviewed date:10/06/2023 10:21:27 AM Interpretation:34 Performing Lab: Notes/Report: Test performed by [facility] [address] [place] [address] [place] [address] Harjinder Angeles MD, Printed Products Assembler CLIA: [id number] Vitamin D 25-Hydroxy 34.0 30.0-100.0 ng/mL Interpretation of Vitamin D 25 OH: < 20 ng/mL - Deficiency 20 - 29 ng/mL - Insufficiency 30 - 100 ng/mL - Sufficiency > 100 ng/mL - Super-therapeutic- toxicity may occur above this level. Clinical correlation required. Mammogram Reviewed date:10/12/2023 11:00:04 AM Interpretation:Negative, annual f/u Performing Lab: Notes/Report: Negative, annual f/u result Negative REASON FOR VISIT check up with fasting labs Medications Medication SIG (Take, Route, Frequency, Duration) Notes Start Date End Date Status Centrum Silver Ultra Womens - 1 tab(s) orally once a day; Duration: 30 day(s) Active Naproxen 500 MG 1 tab(s) orally 2 ti mes a day; Duration: 90 days Active Lisinopril 20 mg TAKE ONE TABLET BY M OUTH EVERY DAY Orally Once a day; Duration: 90 days Active Levothyroxine Sodium 75 mcg TAKE ONE TAB LET BY MOUTH EVERY DAY ON an EMPTY stomach; Duration: 30 days Active Omeprazole 40 MG 1 capsule 30 minutes before morning meal Orally Once a day; Duration: 90 days 09/30/2023 Active Rosuvastatin Calcium 5 mg TAKE ONE TABLE T BY MOUTH EVERY DAY Orally Once a day; Duration: 90 days Active Sertraline HCl 50 MG 1 tablet Orally Onc e a day; Duration: 30 day(s) Active Vital Signs Weight 170.8 lbs 10/02/2023 Blood pressure systolic 116 mm Hg 10/02/19 24 Blood pressure diastolic 74 mm Hg 024 Heart Rate 64 /min 10/02/2023 Height 62.50 in 10/02/2023 BMI 30.74 kg/m2 10/02/2023 Encounters Encounter Location Date Provider Diagnosis [facility] [address] [id number] 10/02/2023 Kristen Moya Acquired hypothyroid ism E03.9 ; Depression with anxiety F41.8 ; Dyslipidemia E78.5 ; Essential hypertension I10 ; Irritable bowel syndrome with diarrhea K58.0 ; Gastroesophageal reflux disease, unspecified whether esophagitis present K21.9 ; Vitamin D deficiency E55.9 and Screening mammogram, encounter for Z12.31 Assessments Encounter Date Diagnosis (ICD Code) Assessment Notes Treatment Notes Treatment Clinical Notes Section Notes 10/02/2023 Acquired hypothyroidism (ICD-10 - E03.9) 10/02/2023 Depression with anxiety (ICD-10 - F41.8) 10/02/2023 Dyslipidemia (ICD-10 - E78.5) 10/02/2023 Essential hypertension (ICD-10 - I10) 10/02/2023 Irritable bowel syndrome with diarrhea (ICD-10 - K58.0) 10/02/2023 Gastroesophageal reflux disease, unspecified whether esophagitis present (ICD-10 - K21.9) 10/02/2023 Vitamin D deficiency (ICD-10 - E55.9) 10/02/2023 Screening mammogram, encounter for (ICD-10 - Z12.31) Plan Of Treatment Next Appt Details Follow Up: via phone to repo rt test results, Reason: Progress Notes * ALMAS JOHNSON:1965 ([age] yo F)Acc No.[id number]:10/02/2023 Progress Notes Patient: CIARA BERRY Provider: KYLEIGH Murdock :1965 A ge:57 Y S ex:Female Date:10/02/2023 Address:[address], [place], [id number] Pcp:Toribio Capellan Subjective: * Chief Complaints: * 1 . Check up with fasting labs. * HPI: E ndocrinology: Maintenance P t presents today for a check up and labs. Pt is fasting today. Pt sts that she has no new concerns or complaints at this time. * ROS: D ERMATOLOGY: no R chantal. n o H charu. G ASTROENTEROLOGY: no N ausea. n o V omiting. n o D iarrhea.? U ROLOGY: no D ifficulty urinating. n o B lood in urine. * Medical History: H ypothyroidism, Depression, HTN, Hiatal hernia. * Surgical History: a blation , gallbladder removed 07-20-2012, EGD and Colonoscopy, Dr. Calderón, small hiatal hernia, colon WNL 05/11/2017. * Hospitalization/Major Diagno stic Procedure: n one , [facility] ER-abdominal pain/diarrhea 08/07/08, [facility] ER-rash 10/21/08, [facility] ER - abdominal pain, diarrhea 02/05/17. * Family History: F ather: alive 60 yrs. M other: 55 yrs, hyperlipidemia, heart problems,thyroid problems. P aternal Grand Father: . P aternal Grand Mother: alive. M aternal Grand Father: . M aternal Grand Mother: . 1 brother(s) , 1 sister(s) . 1 son(s) . . 3 paternal great aunts had breast cancer. * Social History: C URRENT TOBACCO USE S moking Status: Patient does NOT smoke, Second hand smoke exposure: No. C affeine: yes, frequency:some. Exercise: yes. Home smoke detector use: no. Marital Status: . New since last visit: none. Occupation: yes. Past smoking status: no, Smoking status: Does not smoke, Second hand smoke exposure: No. Occup. exposure: none. Recreational drug use: no. Alcohol: no. Sexually active: yes. Travel ouside [place]: no. * Medications: T aking Centrum Silver Ultra Womens - Tablet 1 tab(s) orally once a day , Taking Naproxen 500 MG Tablet Delayed Release 1 tab(s) orally 2 times a day , Taking Lisinopril 20 mg Tablet TAKE ONE TABLET BY MOUTH EVERY DAY Orally Once a day , Taking Rosuvastatin Calcium 5 mg Tablet TAKE ONE TABLET BY MOUTH EVERY DAY Orally Once a day , Taking Sertraline HCl 50 MG Tablet 1 tablet Orally Once a day , Taking Levothyroxine Sodium 75 mcg Tablet TAKE ONE TABLET BY MOUTH EVERY DAY ON an EMPTY stomach , Taking Omeprazole 40 MG Capsule Delayed Release 1 capsule 30 minutes before morning meal Orally Once a day , Medication List reviewed and reconciled with the patient * Allergies: N .K.D.A. Objective: * Vitals: W t:170.8, Temp:98.5, BP:116/74, HR:64, Nurse:MAIDA, Ht: 62.50, BMI:30.74. * Examination: G eneral Examination: General Appearance: N AD. H EENT: u nremarkable.?Oral cavity: n o lesions, mucosa moist and WNL, no erythema. N anthony: s upple, no lymphadenopathy. C hest: n ormal shape and expansion. H eart: R SR. L ungs: c lear to auscultation. A bdomen: bowel sounds present, soft and nontender, no organomegaly or masses, no guarding or rigidity. N eurologic Exam: I ntact, gait normal. S kin: n ormal, no rash. P eripheral pulses: n ormal (2+) bilaterally. E xtremities: n o leg edema. Assessment: * Assessment: 1. A cquired hypothyroidism - E03.9 (Primary) 2 . D epression with anxiety - F41.8 3 . D yslipidemia - E78.5 4 . E ssential hypertension - I10 5 . I rritable bowel syndrome with diarrhea - K58.0 6 . Gastroesophageal reflux disease, unspecified whether esophagitis present - K21.9 ?7. V itamin D deficiency - E55.9 8 . S creening mammogram, encounter for - Z12.31 Plan: * Treatment: Value Reference Range T hyroxine Free (free T4) 1.26 0.86-1.76 - ng/d L * Kristen Moya 10/06/2023 10 :21:13 AM > see TE ?LAB: P-TSH (Collection Date & Time - 10/02/2023 08:55 AM)?5.74* Value Reference Range T SH 5.74 H 0.43-5.25 - mU/L * Kristen Moya Pippa 10/06/2023 10 :21:13 AM > see TE 2.?Dyslipidemia?LAB: P-Lipid Panel (Collection Date & Time - 10/02/2023 08:55 AM)?Normal* Value Reference Range C holesterol / HDL Ratio 2.06 0.00-4.44 - Ratio * C holesterol 148 <200 - mg/dL * H DL Cholesterol 72 >39 - mg/dL * L DL Cholesterol (Calculation) 63 <130 - mg/d L * L DL/HDL Ratio 0.9 <3.3 - Ratio * N on-HDL Cholesterol 76 <130 - mg/dL * T riglycerides 63 <150 - mg/dL * Kristen Moya Pippa 10/06/2023 10 :21:13 AM > see TE 3.?Essential hypertension?LAB: P-Comprehensive Metabolic Panel (CMP) (Collection Date & Time - 10/02/2023 08:55 AM)?Normal* Value Reference Range A /G Ratio 1.6 1.1-2.5 - mg/dL * A lbumin 4.4 3.5-5.3 - g/dL * A lkaline Phosphatase 78 35-121 - IU/L * A LT (SGPT) 22 <5-47 - IU/L * A ST (SGOT) 24 <5-40 - IU/L * B ilirubin, Total 0.5 <0.2-1.2 - mg/dL * B UN 16 6-20 - mg/dL * C alcium 9.5 8.6-10.4 - mg/dL * C hloride 104 97-108 - mmol/L * C O2 29 22-32 - mmol/L * C reatinine 0.71 0.50-1.00 - mg/dL * G lucose 87 65-99 - mg/dL * P otassium 5.0 3.5-5.3 - mmol/L * S odium 141 135-145 - mmol/L * P rotein 7.2 6.0-8.3 - g/dL * e GFR by Creatinine 100 >59 - mL/min/1.73m2 * Kristen Moya 10/06/2023 10 :21:13 AM > see TE ?LAB: CBC Venipuncture (in house) (Collection Date & Time - 10/02/2023)* Value Reference Range w bc 4.8 3.5 - 10 * l ymph 23.1 15 - 50 * m id 6.8 2 - 15 * g ran 70.1 35 - 80 * r bc 4.36 3.5 - 5.5 * h gb 13.3 11.5 - 16.5 * h ct 40.4 35 - 55 * m cv 92.7 75 - 100 * m ch 30.6 25 - 35 * m chc 33.0 31 - 38 * p latlet 285 100 - 400 * Mehnaz Cervantes 10/02/2023 10:3 4:02 AM >Kristen Moya 10/02/2023 1:33:27 PM > 4.?Vitamin D deficiency?LAB: P-Vitamin D 25-Hydroxy (Collection Date & Time - 10/02/2023 08:55 AM)? 34* Value Reference Range V itamin D 25-Hydroxy 34.0 30.0-100.0 - ng/mL * Kristen Moya 10/06/2023 10 :21:13 AM > see TE 5.?Screening mammogram, encounter for?Imaging: Mammogram (Performed Date - 10/06/2023)?Negative, annual f/u* Value Reference Range r esult Negative * Kristen Moya 10/02/2023 9: 53:54 AM >Leena Diallo 10/02/2023 10:40:58 AM > faxed to scheduling and radiologyTaylLeena munguia 10/02/2023 11:35:25 AM > [facility] 10/06/23 at 04:00pmMehnaz Cervantes 10/12/2023 10:59:47 AM > pt informed of results * Procedure Codes: 8 5025 CBC WITH AUTO DIFF, 88116 VENIPUNCT, ROUTINE* * Follow Up: v ia phone to report test results * Images: Billing Information: * Visit Code: 68688 Office Visit, Est Pt., Level 4. * Procedure Codes: 11619 CBC WITH AUTO DIFF. 66044 VENIPUNCT, ROUTINE*. * Electronic signature of KYLEIGH Martinez on 01/13/2025 at 07:16 PM EDT Sign off status: Pending * Provider: KYLEIGH Murdock Date: 0 10/02/2023 Generated for Printi ng/Faxing/eTransmitting on: 1 07:16 PM EDT History and Physical Notes * HPI (History of Present Illness) Category Sub-Category Detail Notes Category Not es Endocrinology [facility]. Pt is fasting today. Pt sts that she has no new concerns or complaints at this time Examination Category Sub-Category Detail Notes Category Not es General Examination HEENT: unremarkable Heart: RSR Lungs: clear to auscultatio n Abdomen: bowel sounds present , soft and nontender, no organomegaly or masses, no guarding or rigidity Extremities: no leg edema General Appearance: NAD Skin: normal, no rash Neurologic Exam: Intact, gait normal Neck: supple, no lymphaden opathy Oral cavity: no lesions, mucosa m oist and WNL, no erythema Peripheral pulses: normal (2+) bilatera lly Chest: normal shape and exp ansion
--- OUTSIDE RECORDS SUMMARY | 2024-03-15 06:15 | XMS_ITS ---
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 Name Role Phone Toribio Capellan Primary Care Provider Kylee Chavarria Unavailable [phone] Allergies No Known Allergies Results Component Value Reference Range Notes Influenza Screen (in house) Reviewed date:03/15/2024 08:43:21 PM Interpretation:neg Performing Lab: Notes/Report: neg results neg Rapid Strep- Inhouse Reviewed date:03/15/2024 08:43:35 PM Interpretation:neg Performing Lab: Notes/Report: neg strep test neg Covid test (in house) Reviewed date:03/15/2024 08:43:09 PM Interpretation:neg Performing Lab: Notes/Report: neg Result: neg REASON FOR VISIT Knot on Left Side of Neck Medications Medication SIG (Take, Route, Frequency, Duration) Notes Start Date End Date Status Naproxen 500 MG 1 tab(s) orally 2 ti mes a day; Duration: 90 days Active Omeprazole 40 MG 1 capsule 30 minutes before morning meal Orally Once a day; Duration: 90 days 09/30/2023 Active Levothyroxine Sodium 88 MCG 1 tablet in the morning on an empty stomach Orally Once a day; Duration: 90 days Active Zithromax Z-Devon 250 MG 2 pills first day then one daily for 4 days orally as directed; Duration: 5 days 03/15/2024 Active Centrum Silver Ultra Womens - 1 tab(s) orally once a day; Duration: 30 day(s) Active Lisinopril 20 mg TAKE ONE TABLET BY M OUTH EVERY DAY Orally Once a day; Duration: 90 days Active Rosuvastatin Calcium 5 mg TAKE ONE TABLE T BY MOUTH EVERY DAY Orally Once a day; Duration: 90 days Active Sertraline HCl 50 MG 1 tablet Orally Onc e a day; Duration: 30 day(s) Active Vital Signs Weight 168.0 lbs 03/15/2024 Blood pressure systolic 120 mm Hg 03/15/20 24 Blood pressure diastolic 70 mm Hg 024 Heart Rate 73 /min 03/15/2024 Height 62.50 in 03/15/2024 BMI 30.23 kg/m2 03/15/2024 Encounters Encounter Location Date Provider Diagnosis [facility] [address] [place] [id number] 03/15/2024 Kylee Chavarria URI (upper respirato ry infection) J06.9 Assessments Encounter Date Diagnosis (ICD Code) Assessment Notes Treatment Notes Treatment Clinical Notes Section Notes 03/15/2024 URI (upper respiratory infection) (ICD-10 - J06.9) fluids, rest, supportive measures for fever/symptom relief, gargles q2h while awake with hot salt water; heat to left neck LAD prn, OTC antihistamine of choice, OTC decongestant and/or cough medicine of choice Plan Of Treatment Medication Medication Name Sig Start Date Stop Date Notes Zithromax Z-Devon 250 MG 2 pills first day then one daily for 4 days orally as directed; Duration: 5 days 03/15/2024 Treatment Notes Assessment Notes URI (upper respiratory infection) fluids , rest, supportive measures for fever/symptom relief, gargles q2h while awake with hot salt water; heat to left neck LAD prn, OTC antihistamine of choice, OTC decongestant and/or cough medicine of choice Next Appt Details Follow Up: prn, Reason: Progress Notes * CIARA JOHNSONDOB:1965 ([age] yo F)Acc No.[id number]:03/15/2024 Progress Notes Patient: CIARA BERRY Provider: JASWINDER Riley :1965 A ge:58 Y S ex:Female Date:03/15/2024 [address]:[address] [place], [place] [id number] Pcp:Toribio Capellan Subjective: * Chief Complaints: * 1 . Knot on Left Side of Neck. * HPI: D ermatology: 58 year old female presents with c/o knot P t is here today with c/o having a knot on the lt side of neck. Pt sts she is unsure how long the knot has been as she just noticed it last or Thursday. Pt sts there is no pain, drainage or enlargement and sts the knot is on the inside of her neck. E NT/respiratory: c/o sore throat P t sts that yesterday her throat was very sore. c/o cough N P. c/o nasal congestion P t sts she has some drainage and sneezing, runny nose as well. c/o ear pain P t sts she has had problems with her rt ear hurting . c/o rhinorrhea. c/o headache. c/o body aches. Denies : Fever. D enies : chest congestion. D enies : smoking. D enies : dizziness. Pt sts her symptoms started this past weekend; eating and drinking OK. * ROS: D ERMATOLOGY: no R chantal. [...] Hospitalization/Major Diagno stic Procedure: n one , [facility] ER-abdominal pain/diarrhea 08/07/08, [facility] ER-rash 10/21/08, [facility] ER - abdominal pain, diarrhea 02/05/17. * [...] orally 2 times a day , Taking Omeprazole 40 MG Capsule Delayed Release 1 capsule 30 minutes before morning meal Orally Once a day , Taking Levothyroxine Sodium 88 MCG Tablet 1 tablet in the morning on an empty stomach Orally Once a day , Taking Lisinopril 20 mg Tablet TAKE ONE TABLET BY MOUTH EVERY DAY Orally Once a day , Taking Rosuvastatin Calcium 5 mg Tablet TAKE ONE TABLET BY MOUTH EVERY DAY Orally Once a day , Taking Sertraline HCl 50 MG Tablet 1 tablet Orally Once a day , Medication List reviewed and reconciled with the patient * Allergies: N .K.D.A. Objective: * Vitals: W t:168.0, Temp:98.3, BP:120/70, HR:73, Nurse:CASIE, Ht: 62.50, BMI:30.23. * Examination: E NT/Respiratory: General Appearance: well nourished and hydrated, NAD, alert; does not feel well. E yes: sclera and conjunctiva clear. E ars: auditory canals normal bilaterally, tympanic membranes normal bilaterally. N ose : clear rhinorrhea; sniffling. S inuses : non tender bilaterally. O ral cavity : erythema without exudate on pharynx. N anthony : supple; left tender LAD. H eart : RRR. L ungs: CTAB A&P. Assessment: * Assessment: 1. U RI (upper respiratory infection) - J06.9 (Primary) Plan: * Treatment: * Labs: * L ab: Covid test (in house) (Collection Date & Time - 03/15/2024) n eg Value Reference Range R esult: neg * Doris Cárdenas 03/15/2024 10:3 1:18 AM > Provider reviewed results while patient in office.ChavarriaKylee 03/15/2024 8:43:09 PM > ?Lab: Influenza Screen (in house) (Collection Date & Time - 03/15/2024)?neg * Value Reference Range r esults neg * Doris Cárdenas 03/15/2024 10:3 0:41 AM > Provider reviewed results while patient in office.Kylee Chavarria 03/15/2024 8:43:21 PM > ?Lab: Rapid Strep- Inhouse (Collection Date & Time - 03/15/2024)?neg* Value Reference Range s trep test neg * Doris Cárdenas 03/15/2024 10:3 1:02 AM > Provider reviewed results while patient in office.Kylee Chavarria 03/15/2024 8:43:34 PM > * Procedure Codes: 8 7804 Flu Test- Nasal Swab, Modifiers: QW , 34770 COVID TEST IN HOUSE, Modifiers: QW , 05058 STREP A ASSAY W/OPTIC, Modifiers: QW * Follow Up: p rn * Images: Billing Information: * Visit Code: 22875 Office Visit, Est Pt., Level 3. * Procedure Codes: 95794 Flu Test- Nasal Swab. Modifiers: QW 64106 COVID TEST IN HOUSE. Modifiers: QW 72265 STREP A ASSAY W/OPTIC. Modifiers: QW * Electronic signature of Carmen booneluz Chavarria APRN on 01/13/2025 at 07:17 PM EDT Sign off status: Pending * Provider: JASWINDER Riley Date: 1 Generated for Camedn shaw/Bhavna/eTted on: 1 07:17 PM EDT History and Physical Notes * HPI (History of Present Illness) Category Sub-Category Detail Notes Category Not es ENT/respiratory sore throat Pt sts that yest erday her throat was very sore Pt sts her symptoms started this past weekend; eating and drinking OK ear pain Pt sts she has had p roblems with her rt ear hurting cough [employer] Fever headache chest congestion rhinorrhea nasal congestion Pt sts she has some drainage and sneezing, runny nose as well smoking dizziness body aches Dermatology knot Pt is here today with c/o having a knot on the lt side of neck. Pt sts she is unsure how long the knot has been as she just noticed it last or Thursday. Pt sts there is no pain, drainage or enlargement and sts the knot is on the inside of her neck Examination Category Sub-Category Detail Notes Category Not es ENT/Respiratory Oral cavity : erythema without exudate on pharynx Sinuses : non tender bilateral ly Ears: auditory canals norm al bilaterally, tympanic membranes normal bilaterally Neck : supple; left tender LAD Heart : RRR Lungs: CTAB A&P General Appearance: well nourished and h ydrated, NAD, alert; does not feel well Nose : clear rhinorrhea; sn iffling Eyes: sclera and conjuncti va clear
--- OUTSIDE RECORDS SUMMARY | 2024-04-20 12:30 | XMS_ITS ---
Author Organization [facility] Address [address] [facility] [address] [place] [id number] Care Team Providers Care Community Placement Worker Name Role Phone Toribio Capellan Primary Care Provider Kristen Moya Unavailable [phone] Allergies No Known Allergies Results Component Value Reference Range Notes CBC Venipuncture (in house) Reviewed date:04/20/2024 04:56:47 PM Interpretation: Performing Lab: Notes/Report: wbc 5.5 3.5 - 10 lymph 27.5% 15 - 50 mid 6.7% 2 - 15 gran 65.8% 35 - 80 rbc 3.86 3.5 - 5.5 hgb 12.0 11.5 - 16.5 hct 35.1 35 - 55 mcv 90.8 75 - 100 mch 31.0 25 - 35 mchc 34.1 31 - 38 platlet 269 100 - 400 P-Vitamin B12 Reviewed date:04/26/2024 10:51:57 AM Interpretation: Performing Lab: Notes/Report: Test performed by [facility] [address] [place] [address] , [address], [place] [address] Harjinder Angeles MD, [employer] CLIA: [id number] Vitamin B12 249 724-2890 pg/mL P-Comprehensive Metabolic Pa trupti (CMP) Reviewed date:04/26/2024 10:51:57 AM Interpretation: Performing Lab: Notes/Report: Test performed by [facility] [address] [place], [place] [address] [place] , [address], [place] [address] Harjinder Angeles MD, [employer] CLIA: [id number] Sodium 143 135-145 mmol/L Potassium 4.8 3.5-5.3 mmol/L Chloride 108 97-108 mmol/L CO2 24 22-32 mmol/L Glucose 90 65-99 mg/dL BUN 21 6-20 mg/dL Creatinine 0.91 0.50-1.00 mg/dL Calcium 8.8 8.6-10.4 mg/dL eGFR by Creatinine 74 >59 mL/min/1.73m2 Protein 6.7 6.0-8.3 g/dL Albumin 4.2 3.5-5.3 g/dL Alkaline Phosphatase 76 35-121 IU/L ALT (SGPT) 17 <5-47 IU/L AST (SGOT) 20 <5-40 IU/L Bilirubin, Total 0.2 <0.2-1.2 mg/dL A/G Ratio 1.7 1.1-2.5 P-T4 Free (thyroxine) Reviewed date:04/26/2024 10:51:57 AM Interpretation: Performing Lab: Notes/Report: Test performed by [facility] [address] [place] [address] , [place] [address] Harjinder Angeles MD, [employer] CLIA: [id number] Thyroxine Free (free T4) 1.25 0.86-1.76 ng/dL P-TSH Reviewed date:04/26/2024 10:51:57 AM Interpretation: Performing Lab: Notes/Report: Test performed by [facility] [address] [place] [address] , [place] [address] Harjinder Angeles MD, [employer] CLIA: [id number] TSH 1.47 0.43-5.25 mU/L P-Vitamin D 25-Hydroxy Reviewed date:04/26/2024 10:51:57 AM Interpretation: Performing Lab: Notes/Report: Test performed by [facility] [address] [place] [address] , [address], [place] [address] Harjinder Angeles MD, [employer] CLIA: [id number] Vitamin D 25-Hydroxy 23.4 30.0-100.0 ng/mL Interpretation of Vitamin D 25 OH: < 20 ng/mL - Deficiency 20 - 29 ng/mL - Insufficiency 30 - 100 ng/mL - Sufficiency > 100 ng/mL - Super-therapeutic- toxicity may occur above this level. Clinical correlation required. sleep study Reviewed date:06/17/2024 04:44:35 PM Interpretation: Performing Lab: Notes/Report: REASON FOR VISIT FEELING TIRED NO ENERGY Medications Medication SIG (Take, Route, Frequency, Duration) Notes Start Date End Date Status Rosuvastatin Calcium 5 mg TAKE ONE TABLE T BY MOUTH EVERY DAY Orally Once a day; Duration: 90 days Active Omeprazole 40 MG 1 capsule 30 minutes before morning meal Orally Once a day; Duration: 90 days Active Sertraline HCl 50 MG 1 tablet Orally Onc e a day; Duration: 30 day(s) Active Lisinopril 20 mg TAKE ONE TABLET BY M OUTH EVERY DAY Orally Once a day; Duration: 90 days Active Levothyroxine Sodium 88 MCG 1 tablet in the morning on an empty stomach Orally Once a day; Duration: 90 days Active Centrum Silver Ultra Womens - 1 tab(s) orally once a day; Duration: 30 day(s) Active Problems Problem Type SNOMED Code ICD Code Onset Dates Problem Status W/U Status Risk Notes Problem Daytime hypersomnia ([id number]) 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 Vital Signs Weight 162.6 lbs 04/20/2024 Blood pressure systolic 130 mm Hg 04/20/19 25 Blood pressure diastolic 80 mm Hg 025 Heart Rate 71 /min 04/20/2024 Height 62.50 in 04/20/2024 BMI 29.26 kg/m2 04/20/2024 Encounters Encounter Location Date Provider Diagnosis [facility] [address] [id number] 04/20/2024 Kristen Moya Daytime hypersomnia G47.10 ; Snoring R06.83 ; Other fatigue R53.83 ; Acquired hypothyroidism E03.9 and Vitamin D deficiency E55.9 Assessments Encounter Date Diagnosis (ICD Code) Assessment Notes Treatment Notes Treatment Clinical Notes Section Notes 04/20/2024 Daytime hypersomnia (ICD-10 - G47.10) 04/20/2024 Snoring (ICD-10 - R06.83) 04/20/2024 Other fatigue (ICD-10 - R53.83) 04/20/2024 Acquired hypothyroidism (ICD-10 - E03.9) 04/20/2024 Vitamin D deficiency (ICD-10 - E55.9) Plan Of Treatment Next Appt Details Follow Up: via phone to repo rt test results, Reason: Progress Notes * CIARA JOHNSONDOB:1965 ([age] yo F)Acc No.[id number]:04/20/2024 Progress Notes Patient: CIARA BERRY Provider: KYLEIGH Murdock :1965 A ge:58 Y S ex:Female Date:04/20/2024 Address:[address] [place] [address], [id number] Pcp:Toribio Capellan Subjective: * Chief Complaints: * 1 . FEELING TIRED NO ENERGY. * HPI: C ardiology: The patient is here today with c/o feeling tired and fatigued. Pt states she has very little energy over the past couple months. Snores at night and is not sure if she is resting well. Tired all day. 58 year old female presents with c/o Fatigue. Denies : Chest Pain. D enies : Short of Breath. D enies : Dizziness. D enies : Palpitations. * ROS: D ERMATOLOGY: no R chantal. [...] Hospitalization/Major Diagno stic Procedure: n one , [facility] ER-abdominal pain/diarrhea 08/07/08, [facility] ER-rash 10/21/08, [facility] ER - abdominal pain, diarrhea 02/05/17. [...] tab(s) orally once a day , Taking Lisinopril 20 mg Tablet TAKE ONE TABLET BY MOUTH EVERY DAY Orally Once a day , Taking Rosuvastatin Calcium 5 mg Tablet TAKE ONE TABLET BY MOUTH EVERY DAY Orally Once a day , Taking Sertraline HCl 50 MG Tablet 1 tablet Orally Once a day , Taking Omeprazole 40 MG Capsule Delayed Release 1 capsule 30 minutes before morning meal Orally Once a day , Taking Levothyroxine Sodium 88 MCG Tablet 1 tablet in the morning on an empty stomach Orally Once a day , Medication List reviewed and reconciled with the patient * Allergies: N .K.D.A. Objective: * Vitals: W t:162.6, Temp:98.2, BP:130/80, HR:71, Nurse:SHANKAR, Ht: 62.50, BMI:29.26. * Examination: G eneral Examination: General Appearance: [...] o leg edema. Assessment: * Assessment: 1. D aytime hypersomnia - G47.10 (Primary) 2 . S noring - R06.83 3 . O ther fatigue - R53.83 4 . A cquired hypothyroidism - E03.9 ? 5 . V itamin D deficiency - E55.9 Plan: * Treatment: 2.?Snoring?Imaging: sleep study (Performed Date - 05/31/2024)* Kristen Moya 04/20/2024 4:3 7:01 PM > Needs an in home studyImaniLeena 04/21/2024 9:02:24 AM > faxed to Crystal MilesKristen Fernandez 06/17/2024 4:44:30 PM > see TE 3.?Other fatigue?LAB: CBC Venipuncture (in house) (Collection Date & Time - 04/20/2024)* Value Reference Range w bc 5.5 3.5 - 10 * l ymph 27.5% 15 - 50 * m id 6.7% 2 - 15 * g ran 65.8% 35 - 80 * r bc 3.86 3.5 - 5.5 * h gb 12.0 11.5 - 16.5 * h ct 35.1 35 - 55 * m cv 90.8 75 - 100 * m ch 31.0 25 - 35 * m chc 34.1 31 - 38 * p latlet 269 100 - 400 * Lo Nichols 04/20/2024 4:45:29 PM >Kristen Moya 04/20/2024 4:56:44 PM > ?LAB: P-Vitamin B12 (Collection Date & Time - 04/21/2024 07:51 AM)* Value Reference Range V itamin B12 970 523-4351 - pg/mL * Kristen Moya 04/26/2024 10 :51:48 AM > see TE ?LAB: P-Comprehensive Metabolic Panel (CMP) (Collection Date & Time - 04/21/2024 07:51 AM)* Value Reference Range A /G Ratio 1.7 1.1-2.5 - * A lbumin 4.2 3.5-5.3 - g/dL * A lkaline Phosphatase 76 35-121 - IU/L * A LT (SGPT) 17 <5-47 - IU/L * A ST (SGOT) 20 <5-40 - IU/L * B ilirubin, Total 0.2 <0.2-1.2 - mg/dL * B UN 21 H 6-20 - mg/dL * C alcium 8.8 8.6-10.4 - mg/dL * C hloride 108 97-108 - mmol/L * C O2 24 22-32 - mmol/L * C reatinine 0.91 0.50-1.00 - mg/dL * G lucose 90 65-99 - mg/dL * P otassium 4.8 3.5-5.3 - mmol/L * S odium 143 135-145 - mmol/L * P rotein 6.7 6.0-8.3 - g/dL * e GFR by Creatinine 74 >59 - mL/min/1.73m2 * NitaGatitohayden Das 04/26/2024 10 :51:48 AM > see TE 4.?Acquired hypothyroidism?LAB: P-T4 Free (thyroxine) (Collection Date & Time - 04/21/2024 07:51 AM)* Value Reference Range T hyroxine Free (free T4) 1.25 0.86-1.76 - ng/d L * NitaGatitohayden Das 04/26/2024 10 :51:48 AM > see TE ?LAB: P-TSH (Collection Date & Time - 04/21/2024 07:51 AM)* Value Reference Range T SH 1.47 0.43-5.25 - mU/L * NitaGatitohayden Das 04/26/2024 10 :51:48 AM > see TE 5.?Vitamin D deficiency?LAB: P-Vitamin D 25-Hydroxy (Collection Date & Time - 04/21/2024 07:51 AM) * Value Reference Range V itamin D 25-Hydroxy 23.4 L 30.0-100.0 - ng/mL * NitaGatitohayden Das 04/26/2024 10 :51:48 AM > see TE * Procedure Codes: 8 5025 CBC WITH AUTO DIFF, 3075F SYST BP GE 130 - 139MM HG, 3079F DIAST BP 80-89 MM HG * Follow Up: v ia phone to report test results * Images: Billing Information: * Visit Code: 75026 Office Visit, Est Pt., Level 4. * Procedure Codes: 56740 CBC WITH AUTO DIFF. 3075F SYST BP GE 130 - 139MM HG. 3079F DIAST BP 80-89 MM HG. * Electronic signature of KYLEIGH Martinez on 01/13/2025 at 07:17 PM EDT Sign off status: Pending * Provider: KYLEIGH Murdock Date: 0 04/20/2024 Generated for Printi ng/Faxing/eTransmitting on: 1 07:17 PM EDT History and Physical Notes * HPI (History of Present Illness) Category Sub-Category Detail Notes Category Not es Cardiology Short of Breath Chest Pain Palpitations Dizziness Fatigue Examination Category Sub-Category Detail Notes Category Not [...]
--- OUTSIDE RECORDS SUMMARY | 2024-06-22 05:15 | XMS_ITS ---
Author Organization [facility] Address [address] [facility] [address] [place] [id number] Care Team Providers Care Assembly Member Name Role Phone Toribio Capellan Primary Care Provider [phone] Kristen Moya Unavailable [phone] Allergies No Known Allergies Results Component Value Reference Range Notes P-Comprehensive Metabolic Pa trupti (CMP) Reviewed date:06/23/2024 02:56:28 PM Interpretation:Normal Performing Lab: Notes/Report: Test performed by [facility] [address] [place] [address] , [address], [place] [address] Harjinder Angeles MD, Investment Professional CLIA: [id number] Sodium 140 135-145 mmol/L Potassium 4.6 3.5-5.3 mmol/L Chloride 103 97-108 mmol/L CO2 27 22-32 mmol/L Glucose 91 65-99 mg/dL BUN 19 6-20 mg/dL Creatinine 0.77 0.50-1.00 mg/dL Calcium 9.8 8.6-10.4 mg/dL eGFR by Creatinine 90 >59 mL/min/1.73m2 Protein 7.5 6.0-8.3 g/dL Albumin 4.4 3.5-5.3 g/dL Alkaline Phosphatase 91 35-121 IU/L ALT (SGPT) 20 <5-47 IU/L AST (SGOT) 21 <5-40 IU/L Bilirubin, Total 0.5 <0.2-1.2 mg/dL A/G Ratio 1.4 1.1-2.5 P-Lipid Panel Reviewed date:06/23/2024 02:56:28 PM Interpretation:Normal Performing Lab: Notes/Report: Test performed by [facility] [address] [place] [address] [address], [place] [address] Harjinder Angeles MD, Investment Professional CLIA: [id number] Cholesterol 181 <200 mg/dL Triglycerides 70 <150 mg/dL HDL Cholesterol 79 >39 mg/dL Cholesterol / HDL Ratio 2.29 0.00-4.44 Ratio Non-HDL Cholesterol 102 <130 mg/dL LDL Cholesterol (Calculation) 88 <130 mg/dL LDL Cholesterol Levels* Less than 100 mg/dL Optimal 100 to 129 mg/dL Near Optimal/ Above Optimal 130 to 159 mg/dL Borderline High 160 to 189 mg/dL High 190 mg/dL and above Very High * Categories as recommended by the 2004 ATPIII guidelines LDL/HDL Ratio 1.1 <3.3 Ratio LDL Cholesterol Patient History Test Date: 10/02/2023 LDL Results: 63 Units: mg/dL % Change: - Test Date: 06/22/2024 LDL Results: 88 Units: mg/dL % Change: +39% P-Vitamin D 25-Hydroxy Reviewed date:06/23/2024 02:56:29 PM Interpretation:Normal Performing Lab: Notes/Report: Test performed by [facility] [address] [place] [address] , [address], [place] [address] Harjinder Angeles MD, Investment Professional CLIA: [id number] Vitamin D 25-Hydroxy 38.1 30.0-100.0 ng/mL Interpretation of Vitamin D 25 OH: < 20 ng/mL - Deficiency 20 - 29 ng/mL - Insufficiency 30 - 100 ng/mL - Sufficiency > 100 ng/mL - Super-therapeutic- toxicity may occur above this level. Clinical correlation required. REASON FOR VISIT blood work and check up Medications Medication SIG (Take, Route, Frequency, Duration) Notes Start Date End Date Status Rosuvastatin Calcium 5 mg TAKE ONE TABLE T BY MOUTH EVERY DAY Orally Once a day; Duration: 90 days Active Sertraline HCl 50 MG 1 tablet Orally Onc e a day; Duration: 30 day(s) Active Omeprazole 40 MG 1 capsule 30 minutes before morning meal Orally Once a day; Duration: 90 days Active Lisinopril 20 mg TAKE ONE TABLET BY M OUTH EVERY DAY; Duration: 30 Active Levothyroxine Sodium 88 mcg TAKE ONE TAB LET BY MOUTH EVERY DAY IN THE MORNING ON an EMPTY stomach; Duration: 30 Active Centrum Silver Ultra Womens - 1 tab(s) orally once a day; Duration: 30 day(s) Active CPAP machine and supplies - as directed as directed 08/2906/17/2024 Active Vitamin D3 50 MCG (2000 UT) 1 capsule Or ally Once a day; Duration: 30 day(s) Active Vital Signs Weight 163.2 lbs 06/22/2024 Blood pressure systolic 130 mm Hg 06/23/19 25 Blood pressure diastolic 80 mm Hg 025 Heart Rate 76 /min 06/22/2024 Height 62.50 in 06/22/2024 BMI 29.37 kg/m2 06/22/2024 Encounters Encounter Location Date Provider Diagnosis [facility] [address] [facility] [address] [place], [place] [id number] 06/22/2024 Kristen Crowdy Dyslipidemia E78.5 ; Essential hypertension I10 ; Vitamin D deficiency E55.9 and BMI 29.0-29.9,adult Z68.29 Assessments Encounter Date Diagnosis (ICD Code) Assessment Notes Treatment Notes Treatment Clinical Notes Section Notes 06/22/2024 Dyslipidemia (ICD-10 - E78.5) 06/22/2024 Essential hypertension (ICD-10 - I10) 06/22/2024 Vitamin D deficiency (ICD-10 - E55.9) 06/22/2024 BMI 29.0-29.9,adult (ICD-10 - Z68.29) Plan Of Treatment Next Appt Details Follow Up: via phone to repo rt test results, Reason: Progress Notes * CIARA JOHNSONDOB:1965 ([age] yo F)Acc No.[id number]:06/22/2024 Progress Notes Patient: CIARA BERRY Provider: KYLEIGH Murdock :1965 A ge:58 Y S ex:Female Date:06/22/2024 Address:[address] [place], [place] [phone] Pcp:Toribio Capellan Subjective: * Chief Complaints: * 1 . Blood work and check up. * HPI: C ardiology: The patient is here today for a check up. Pt states she is doing good and denies any new concerns. Pt is fasting. Denies : Chest Pain. D enies : [...] Hospitalization/Major Diagno stic Procedure: n one , [facility] ER-abdominal pain/diarrhea 08/07/08, [facility] ER-rash 10/21/08, [facility] ER - abdominal pain, diarrhea 02/05/17. [...] ouside US: no. * Medications: T aking Vitamin D3 50 MCG (2000 UT) Capsule 1 capsule Orally Once a day , Taking Centrum Silver Ultra Womens - Tablet 1 tab(s) orally once a day , Taking Rosuvastatin Calcium 5 mg Tablet TAKE ONE TABLET BY MOUTH EVERY DAY Orally Once a day , Taking Sertraline HCl 50 MG Tablet 1 tablet Orally Once a day , Taking Omeprazole 40 MG Capsule Delayed Release 1 capsule 30 minutes before morning meal Orally Once a day , Taking Lisinopril 20 mg Tablet TAKE ONE TABLET BY MOUTH EVERY DAY , Taking Levothyroxine Sodium 88 mcg Tablet TAKE ONE TABLET BY MOUTH EVERY DAY IN THE MORNING ON an EMPTY stomach , Taking CPAP machine and supplies - - as directed as directed , Notes to Pharmacist: 08/29, Medication List reviewed and reconciled with the patient * Allergies: N .K.D.A. Objective: * Vitals: W t:163.2, Temp:97.7, BP:130/80, HR:76, Nurse:SHANKAR, Ht: 62.50, BMI:29.37. * Examination: G eneral Examination: General Appearance: N AD. H EENT: u nremarkable.?Oral cavity: n o lesions, mucosa moist and WNL, no erythema. N anthony: s upple, no lymphadenopathy. C hest: n ormal shape and expansion. H eart: R SR. L ungs: c lear to auscultation. A bdomen: bowel sounds present, soft and nontender. N eurologic Exam: I ntact, gait normal. S kin: n ormal, no rash. P eripheral pulses: n ormal (2+) bilaterally. E xtremities: n o leg edema. Assessment: * Assessment: 1. D yslipidemia - E78.5 (Primary) 2 . E ssential hypertension - I10 ? 3 . V itamin D deficiency - E55.9 4 . B NE 29.0-29.9,adult - Z68.29 Plan: * Treatment: Value Reference Range A /G Ratio 1.4 1.1-2.5 - * A lbumin 4.4 3.5-5.3 - g/dL * A lkaline Phosphatase 91 35-121 - IU/L * A LT (SGPT) 20 <5-47 - IU/L * A ST (SGOT) 21 <5-40 - IU/L * B ilirubin, Total 0.5 <0.2-1.2 - mg/dL * B UN 19 6-20 - mg/dL * C alcium 9.8 8.6-10.4 - mg/dL * C hloride 103 97-108 - mmol/L * C O2 27 22-32 - mmol/L * C reatinine 0.77 0.50-1.00 - mg/dL * G lucose 91 65-99 - mg/dL * P otassium 4.6 3.5-5.3 - mmol/L * S odium 140 135-145 - mmol/L * P rotein 7.5 6.0-8.3 - g/dL * e GFR by Creatinine 90 >59 - mL/min/1.73m2 * Mehnaz Cervantes 06/23/2024 02: 56:14 PM > pt informed of results ?LAB: P-Lipid Panel (Collection Date & Time - 06/22/2024 08:42 AM)?Normal* Value Reference Range C holesterol / HDL Ratio 2.29 0.00-4.44 - Ratio * C holesterol 181 <200 - mg/dL * H DL Cholesterol 79 >39 - mg/dL * L DL Cholesterol (Calculation) 88 <130 - mg/d L * L DL/HDL Ratio 1.1 <3.3 - Ratio * N on-HDL Cholesterol 102 <130 - mg/dL * T riglycerides 70 <150 - mg/dL * Helen Mehnaz 06/23/2024 02: 56:14 PM > pt informed of results 2.?Vitamin D deficiency?LAB: P-Vitamin D 25-Hydroxy (Collection Date & Time - 06/22/2024 08:42 AM)? Normal* Value Reference Range V itamin D 25-Hydroxy 38.1 30.0-100.0 - ng/mL * Mehnaz Cervantes 06/23/2024 02: 56:14 PM > pt informed of results * Procedure Codes: 3 075F SYST BP GE 130 - 139MM HG, 3079F DIAST BP 80-89 MM HG * Follow Up: v ia phone to report test results * Images: Billing Information: * Visit Code: 62485 Office Visit, Est Pt., Level 4. * Procedure Codes: 3075F SYST BP GE 130 - 139MM HG. 3079F DIAST BP 80-89 MM HG. * Electronic signature of KYLEIGH Martinez on 01/13/2025 at 07:17 PM EDT Sign off status: Pending * Provider: KYLEIGH Murdock Date: 0 06/22/2024 Generated for [place] shaw/Bhavna/Isabelleitting on: 1 07:17 PM EDT History and Physical Notes * HPI (History of Present Illness) Category Sub-Category Detail Notes Category Not es Cardiology Short of Breath Chest Pain Palpitations Dizziness Examination Category Sub-Category Detail Notes Category Not es General Examination HEENT: unremarkable Heart: RSR Lungs: clear to auscultatio n Abdomen: bowel sounds present , soft and nontender Extremities: no leg edema General Appearance: NAD Skin: normal, no rash Neurologic Exam: Intact, gait normal Neck: supple, no lymphaden opathy Oral cavity: no lesions, mucosa m oist and WNL, no erythema Peripheral pulses: normal (2+) bilatera lly Chest: normal shape and exp ansion
--- OUTSIDE RECORDS SUMMARY | 2024-09-14 06:15 | XMS_ITS ---
Author Organization [facility] Address [address] [facility] [address] [place] [id number] Care Team Providers Care Tube Turner Name Role Phone Toribio Capellan Primary Care Provider Kristen Moya Unavailable [phone] Allergies No Known Allergies REASON FOR VISIT discuss sleep apnea, c-pap machine Medications Medication SIG (Take, Route, Frequency, Duration) Notes Start Date End Date Status Levothyroxine Sodium 88 mcg 1 tablet by mouth on empty stomach daily; Duration: 90 days Active Rosuvastatin Calcium 5 mg TAKE ONE TABLE T BY MOUTH EVERY DAY Orally Once a day; Duration: 90 days Active Sertraline HCl 50 mg TAKE ONE TABLET BY MOUTH EVERY DAY; Duration: 30 Active Lisinopril 20 mg TAKE ONE TABLET BY M OUTH EVERY DAY; Duration: 30 Active CPAP machine and supplies - as directed as directed 08/2906/17/2024 Active Vitamin D3 50 MCG (1999 UT) 1 capsule Or ally Once a day; Duration: 30 day(s) Active Centrum Silver Ultra Womens - 1 tab(s) orally once a day; Duration: 30 day(s) Active Omeprazole 40 MG 1 capsule 30 minutes before morning meal Orally Once a day; Duration: 90 days Active Vital Signs Weight 165.8 lbs 09/14/2024 Blood pressure systolic 133 mm Hg 09/15/19 25 Blood pressure diastolic 78 mm Hg 025 Heart Rate 72 /min 09/14/2024 Height 62.50 in 09/14/2024 BMI 29.84 kg/m2 09/14/2024 Encounters Encounter Location Date Provider Diagnosis [facility] [address] [facility] [address] [place] [id number] 09/14/2024 Kristen Moya Obstructive sleep ap frank G47.33 and BMI 29.0-29.9,adult Z68.29 Assessments Encounter Date Diagnosis (ICD Code) Assessment Notes Treatment Notes Treatment Clinical Notes Section Notes 09/14/2024 Obstructive sleep apnea (ICD-10 - G47.33) Patient is using her CPAP nightly and does benefit from using it and should continue using it. The pressure has been adjusted and she is tolerating this better. 09/14/2024 BMI 29.0-29.9,adult (ICD-10 - Z68.29) Plan Of Treatment Treatment Notes Assessment Notes Obstructive sleep apnea Patient is using her CPAP nightly and does benefit from using it and should continue using it. The pressure has been adjusted and she is tolerating this better. Next Appt Details Follow Up: prn, Reason: Progress Notes * CIARA JOHNSONDOB:1965 ([age] yo F)Acc No.[id number]:09/14/2024 Progress Notes Patient: CIARA BERRY Provider: KYLEIGH Murdock :1965 A ge:58 Y S ex:Female Date:09/14/2024 Address:[address] [place] [address] [place] , [facility] [id number] Pcp:Toribio Capellan Subjective: * Chief Complaints: * 1 . Discuss sleep apnea, c-pap machine. * HPI: N eurology: 58 year old female presents with c/o Sleep Disturbance P t is here f/u on sleep apnea. Pt states she needs today's office note faxed to [place].. * ROS: D ERMATOLOGY: no R chantal. [...] Hospitalization/Major Diagno stic Procedure: n one , [facility] ER-abdominal pain/diarrhea 08/07/08, [facility] ER-rash 10/21/08, [facility] ER - abdominal pain, diarrhea 02/05/17. * [...] tab(s) orally once a day , Taking Omeprazole 40 MG Capsule Delayed Release 1 capsule 30 minutes before morning meal Orally Once a day , Taking Lisinopril 20 mg Tablet TAKE ONE TABLET BY MOUTH EVERY DAY , Taking CPAP machine and supplies - - as directed as directed , Notes to Pharmacist: 08/29, Taking Rosuvastatin Calcium 5 mg Tablet TAKE ONE TABLET BY MOUTH EVERY DAY Orally Once a day , Taking Sertraline HCl 50 mg Tablet TAKE ONE TABLET BY MOUTH EVERY DAY , Taking Levothyroxine Sodium 88 mcg Tablet 1 tablet by mouth on empty stomach daily , Medication List reviewed and reconciled with the patient * Allergies: N .K.D.A. Objective: * Vitals: W t: 165.8, Temp: 98.4, BP: 133/78, HR: 72, Nurse: genny, Ht: 62.50, BMI:29.84. * Examination: G eneral Examination: General Appearance: N AD. C hest: n ormal shape and expansion. H eart: R SR. L ungs: c lear to auscultation. Assessment: * Assessment: 1. O bstructive sleep apnea - G47.33 (Primary) 2 . B TX 29.0-29.9,adult - Z68.29 Plan: * Treatment: * Procedure Codes: 1 036F TOBACCO NON-USER, G8420 BMI<30 AND >=22 CALC & DOCU, G8783 BP SCR PRFRM RCMDD DEFIND SCR INTVL, G8752 MOST RECENT SYSTOLIC BP < 140MM HG, G8754 MOST RECENT DIASTOLIC BP < 90MM HG * Follow Up: p rn * Images: Billing Information: * Visit Code: 43777 Office Visit, Est Pt., Level 3. * Procedure Codes: 1036F TOBACCO NON-USER. G8420 BMI<30 AND >=22 CALC & DOCU. G8783 BP SCR PRFRM RCMDD DEFIND SCR INTVL. G8752 MOST RECENT SYSTOLIC BP < 140MM HG. G8754 MOST RECENT DIASTOLIC BP < 90MM HG. * Electronic signature of KYLEIGH Martinez on 01/13/2025 at 07:16 PM EDT Sign off status: Pending * Provider: KYLEIGH Murdock Date: 0 09/14/2024 Generated for [place] shaw/Bhavna/eTransmitting on: 1 07:16 PM EDT History and Physical Notes * HPI (History of Present Illness) Category Sub-Category Detail Notes Category Not es Neurology Sleep Disturbance Pt is here f/u on sleep apnea. Pt states she needs today's office note faxed to [facility]. Examination Category Sub-Category Detail Notes Category Not es General Examination Heart: RSR Lungs: clear to auscultatio n General Appearance: NAD Chest: normal shape and exp ansion
[2025-01-13 19:03] VITALS: BP 130/80; PULSE 88; RESP 18; TEMP 36.8; O2SAT 95; BMI 31.1
[2025-01-13 19:14] LABS: POC Glucose,Bedside 120 gm/dL (70-110)
--- NOTE | 2025-01-13 19:16 | ECG_ITS ---
APPROVED REPORT Exam: Resting ECG HR:80 bpm ECG Measurements Heart Rate 80 AXES OH 140 P 54 QRSd 77 QRS 13 QT 352 T 34 QTc 389 Conclusion Normal sinus rhythm without acute ST or T wave changes concerning for ischemia Electronically signed by : Lori Patel, 01/13/2025 23:10:38
--- OUTSIDE RECORDS SUMMARY | 2025-01-13 19:17 | XMS_ITS | Patient Health Record ---
[facility] Organization [facility] Address [address] [facility] [address] [place] [id number] Care Team Providers Care Survey Workers Supervisor Name Role Phone Toribio Capellan Primary Care Provider [phone] Kylee Chavarria Unavailable [phone] Kristen Moya Unavailable [phone] Allergies No Known Allergies Results Component Value Reference Range Notes Influenza Screen (in house) Reviewed date:03/15/2024 08:43:21 PM Interpretation:neg Performing Lab: Notes/Report: neg results neg Rapid Strep- Inhouse Reviewed date:03/15/2024 08:43:35 PM Interpretation:neg Performing Lab: Notes/Report: neg strep test neg Covid test (in house) Reviewed date:03/15/2024 08:43:09 PM Interpretation:neg Performing Lab: Notes/Report: neg Result: neg sleep study Reviewed date:06/17/2024 04:44:35 PM Interpretation: Performing Lab: Notes/Report: P-Vitamin D 25-Hydroxy Reviewed date:04/26/2024 10:51:57 AM Interpretation: Performing Lab: Notes/Report: Test performed by Andre Phillipe [address] [place] [address] , [address], [place] [address] Harjinder Angeles MD, Supervisor Inspection Department CLIA: [id number] Vitamin D 25-Hydroxy 23.4 30.0-100.0 ng/mL Interpretation of Vitamin D 25 OH: < 20 ng/mL - Deficiency 20 - 29 ng/mL - Insufficiency 30 - 100 ng/mL - Sufficiency > 100 ng/mL - Super-therapeutic- toxicity may occur above this level. Clinical correlation required. P-TSH Reviewed date:04/26/2024 10:51:57 AM Interpretation: Performing Lab: Notes/Report: Test performed by Andre Phillipe [address] [place] [address] , [address], [place] [address] Harjinder Angeles MD, Supervisor Inspection Department CLIA: [id number] TSH 1.47 0.43-5.25 mU/L P-T4 Free (thyroxine) Reviewed date:04/26/2024 10:51:57 AM Interpretation: Performing Lab: Notes/Report: Test performed by [facility] [address] , [address], [place] [address] Harjinder Angeles MD, Supervisor Inspection Department CLIA: [id number] Thyroxine Free (free T4) 1.25 0.86-1.76 ng/dL P-Comprehensive Metabolic Pa trupti (CMP) Reviewed date:04/26/2024 10:51:57 AM Interpretation: Performing Lab: Notes/Report: Test performed by Andre Phillipe [address] [place] [address] , [place] [address] Harjinder Angeles MD, Supervisor Inspection Department CLIA: [id number] Sodium 143 135-145 mmol/L Potassium 4.8 3.5-5.3 [...] 0.2 <0.2-1.2 mg/dL A/G Ratio 1.7 1.1-2.5 CBC Venipuncture (in house) Reviewed date:04/20/2024 04:56:47 [...] - 38 platlet 269 100 - 400 P-Comprehensive Metabolic Pa trupti (CMP) Reviewed date:06/23/2024 02:56:28 PM Interpretation:Normal Performing Lab: Notes/Report: Test performed by Andre Phillipe [address] [place] [address] , [place] [address] Harjinder Angeles MD, Supervisor Inspection Department CLIA: [id number] Sodium 140 135-145 mmol/L Potassium 4.6 3.5-5.3 [...] Interpretation:Normal Performing Lab: Notes/Report: Test performed by Andre Phillipe [address] [place] [address] , [address], [place] [address] Harjinder Angeles MD, Supervisor Inspection Department CLIA: [id number] Cholesterol 181 <200 mg/dL Triglycerides 70 <150 [...] Interpretation:Normal Performing Lab: Notes/Report: Test performed by [facility], [facility] [address] [facility] , [facility] [address], [place] [address] Harjinder Angeles MD, Supervisor Inspection Department CLIA: [id number] Vitamin D 25-Hydroxy 38.1 30.0-100.0 ng/mL Interpretation of Vitamin D 25 OH: < 20 ng/mL - Deficiency 20 - 29 ng/mL - Insufficiency 30 - 100 ng/mL - Sufficiency > 100 ng/mL - Super-therapeutic- toxicity may occur above this level. Clinical correlation required. P-Vitamin B12 Reviewed date:04/26/2024 10:51:57 AM Interpretation: Performing Lab: Notes/Report: Test performed by Andre Phillipe [address] [place] [address] , [address], [place] [address] Harjinder Angeles MD, Supervisor Inspection Department CLIA: [id number] Vitamin B12 172 311-3347 pg/mL Mammogram Reviewed date:10/18/2024 02:24:53 PM Interpretation:Negative Performing Lab: Notes/Report: Negative result Negative Medications Medication SIG (Take, Route, Frequency, Duration) Notes Start Date End Date Status Levothyroxine Sodium 88 mcg 1 tablet by mouth on empty stomach daily; Duration: 90 days Active Omeprazole 40 mg TAKE ONE CAPSULE BY MOUTH EVERY DAY 30 minutes BEFORE morning meal; Duration: 90 Active Vitamin D3 50 MCG (1999 UT) 1 capsule Or ally Once a day; Duration: 30 day(s) Active Centrum Silver Ultra Womens - 1 tab(s) orally once a day; Duration: 30 day(s) Active Rosuvastatin Calcium 5 mg 1 tablet Orall y Once a day; Duration: 90 days Active Lisinopril 20 mg 1 tablet orally once a day; Duration: 90 days Active Sertraline HCl 50 mg 1 tablet orally onc e a day; Duration: 90 days Active CPAP machine and supplies - as directed as directed 08/2906/17/2024 Active Immunizations Vaccine Route Administration Date Status Comme nts Tetanus Tdap-Adacel (over 7yrs) Unknown 01/23/2021 Admi nistered Problems Problem Type SNOMED Code ICD Code Onset Dates Problem Status W/U Status Risk Notes Problem Vitamin D deficiency (70789451) Vitamin D deficiency (E55.9) Active confirmed Problem Essential hypertension (26907352) Essential hypertension (I10) Active confirmed Problem Abnormal mammogram (387018933) Abnormal mammogram (R92.8) Active confirmed Problem Paresthesia (79328936) Paresthesia (R20.2) Active confirmed Problem Obstructive sleep apnea (98251874) Obstructive sleep apnea (G47.33) Active confirmed Problem Mixed anxiety and depressive disorder (463043081) Depression with anxiety (F41.8) Active confirmed Problem Irritable bowel syndrome with diarrhea (052336045) Irritable bowel syndrome with diarrhea (K58.0) Active confirmed Problem Acquired hypothyroidism (193063906) Acquired hypothyroidism (E03.9) Active confirmed Problem Cervical disc disorder (460313543) DDD (degenerative disc disease), cervical (M50.30) Active confirmed Problem Dyslipidemia (615049974) Dyslipidemia (E78.5) Active confirmed Problem Bilateral tinnitus (2944868421226) Bilateral tinnitus (H93.13) Active confirmed Problem Ultrasonography of breast abnormal (74814965354878627) Abnormal ultrasound of breast (R92.8) Active confirmed Problem Globus sensation (810836207) Globus sensation (F45.8) Active confirmed Problem Gastroesophageal reflux disease (093686289) Gastroesophageal reflux disease, unspecified whether esophagitis present (K21.9) Active confirmed Problem Daytime hypersomnia (47983664516236) 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 Vital Signs Heart Rate 72 /min 09/14/2024 Blood pressure diastolic 78 mm Hg 09/14/2024 Height 62.50 in 09/14/2024 Blood pressure systolic 133 mm Hg 09/14/2024 Weight 165.8 lbs 09/14/2024 BMI 29.84 kg/m2 09/14/2024 Encounters Encounter Location Date Provider Diagnosis [facility] [address] [facility] [address] [id number] 03/15/2024 Kyleecatalino Chavarria URI (upper respirato ry infection) J06.9 [facility] [address] [facility] [address] [id number] 04/20/2024 Kristenhayden oMya Daytime hypersomnia G47.10 ; Snoring R06.83 ; Other fatigue R53.83 ; Acquired hypothyroidism E03.9 and Vitamin D deficiency E55.9 [facility] [address] [facility] [address] [id number] 06/22/2024 Kristen Crowdy Dyslipidemia E78.5 ; Essential hypertension I10 ; Vitamin D deficiency E55.9 and BMI 29.0-29.9,adult Z68.29 [facility] [address] [id number] 09/14/2024 Kristenhayden Moya Obstructive sleep ap frank G47.33 and BMI 29.0-29.9,adult Z68.29 [facility] [address] [place] [id number] 04/26/2024 Kristen Moya [facility] [address] [place], [place] [id number] 06/17/2024 Kristen Moya Obstructive sleep ap frank G47.33 [facility] [address] [place] [id number] 07/26/2024 Kristen Moya [facility] [address] [place] [id number] 09/06/2024 Toribio Capellan [facility] [address] [place], [place] [id number] 09/27/2024 Toribio Capellan Screening for breast cancer [...] deficiency (ICD-10 - E55.9) Plan Of Treatment No Information Insurance Providers Payer Name Payer Address Payer Phone Subscriber Number Group Number Insured Name Patient Relationship to Insured Coverage Start Date Coverage End Date [employer] [facility] [address] [place], [place] [id number] CIARA JOHNSON Self - patient is the insured Medications Administered Medication Instructions Date of Administration Dosage Notes Dexamethasone 04/30/2005 1 mL Dexamethasone 08/21/2009 1 mL Medical (General) History Medical History History ICD Code Hypothyroidism Depression HTN Hiatal hernia Surgical History Surgery Date(Month/Year) ablation gallbladder removed 07-20-2012 EGD and Colonoscopy, Dr. Calderón, small hia davy hernia, colon WNL 05/11/2017 Hospitalization History Reason Date(Month/Year) [facility] [place] [facility] - abdominal pain, diarrhea [facility] [place] [facility]-rash 10/21/08 [facility] [place] [facility]-abdominal pain/diarrhea 08/07/08 none
--- OUTSIDE RECORDS SUMMARY | 2025-01-13 19:17 | XMS_ITS | Data Portability ---
Author Organization [place] - [facility] - [facility] ADMIN Address [address] [place] [id number] Assessment Encounter Date Assessment Date Assessment LastModified [...] screening colonoscopy with next repeat due 05/11/2027. [email or web address] Not available 03/05/2023 11:11:43 05/07/2023 05/07/2023 57 [...] screening colonoscopy with next repeat due 05/11/2027. [email or web address] Not available 07/09/2023 12:45:26 07/08/2024 07/08/2024 58 yo female wit h history of hiatal hernia and GERD presenting for 1 year follow-up. 1) GERD/Hiatal Hernia: Symptoms are stable. Continue Omeprazole 40 mg p.o. once daily. Abnormal Jacobo previously. Well managed with medications currently. I have recommended she take a once daily women's multivitamin while using PPI intermediate manager. 2) Prophylaxis: She is up to date on screening colonoscopy with next repeat due 05/11/2027. Not available 07/08/2024 17:09:22 Plan of Treatment Reminders Order Date Submit Date Provider Last Modified By Organization Details Last Modified Time Details Appointments None recorded. Lab CMP, serum or plasma 2023 024 [facility], [address], [address], [place], [address], 4 07:14:56 CBC w/ auto diff 2023 024 [facility], [address], [address], [place], [address], 4 07:14:57 Referral None recorded. Procedures None recorded. Surgeries None recorded. Imaging CT, chest + abdomen, w/ contrast [address] (Centralized Scheduling), [address], [place], [address], 4 10:44:55 Medication Orders omeprazole 40 mg capsule,del ayed release 2022 023 [facility], [address] [place] [address] Lisandro Tiwari [place], [id number], 4 16:48:44 Patient TargetsNo targets recorded. Patient InstructionsNo instructions recorded. Reason for Referral None Reported. Results Created Date Observation Date Name Description Value Unit Range Abnormal Flag Note LastModifiedBy Organization Detail LastModifiedTime 05/07/19 24 05/08/2023 CMP14 +EGFR glucose 73 mg/dL 70-99 Not Available [facility] ([facility]) [address] [place], [address], 05/08/2023 07:14:56 05/07/19 24 05/08/2023 CMP14 +EGFR BUN 18 mg/dL 6-24 Not Available [facility] ([facility]) [address] [place], [address], 05/08/2023 07:14:56 05/07/19 24 05/08/2023 CMP14 +EGFR creatinine 0.93 mg/dL 0.57-1 .00 Not Available [facility] ([facility]) [address] [facility], [place], [address], 05/08/2023 07:14:56 05/07/19 24 05/08/2023 CMP14 +EGFR eGFR 73 mL/mi n/1.7 3 >59 Not Available [facility] ([facility]) [address] [place], [address], 05/08/2023 07:14:56 05/07/19 24 05/08/2023 CMP14 +EGFR BUN/creatini ne ratio 12-06 Not Available [facility] ([facility]) [address] [place], [address], 05/08/2023 07:14:56 05/07/19 24 05/08/2023 CMP14 +EGFR sodium 142 mmol/ L 134-14 4 Not Available [facility] ([facility]) [address] [facility] [place], [address], 05/08/2023 07:14:56 05/07/19 24 05/08/2023 CMP14 +EGFR potassium 4.2 mmol/ L 3.5-5. 2 Not Available [facility] ([facility]) [address] [facility], [place], [address], 05/08/2023 07:14:56 05/07/19 24 05/08/2023 CMP14 +EGFR chloride 105 mmol/ L 96-106 Not Available [facility] ([facility]) [address] [facility] [place], [address], 05/08/2023 07:14:56 05/07/19 24 05/08/2023 CMP14 +EGFR carbon dioxide, total 26 mmol/ L 20-29 Not Available [facility] ([facility]) [address] [facility], [place], [address], 05/08/2023 07:14:56 05/07/19 24 05/08/2023 CMP14 +EGFR calcium 9.0 mg/dL 8.7-10 .2 Not Available [facility] ([facility]) [address] [facility] [place], [address], 05/08/2023 07:14:56 05/07/19 24 05/08/2023 CMP14 +EGFR protein, total 7.0 g/dL 6.0-8. 5 Not Available [facility] ([facility]) [address] [place], [address], 05/08/2023 07:14:56 05/07/19 24 05/08/2023 CMP14 +EGFR albumin 4.2 g/dL 3.8-4. 9 Not Available [facility] ([facility]) [address] [place], [address], 05/08/2023 07:14:56 05/07/19 24 05/08/2023 CMP14 +EGFR globulin, total 2.8 g/dL 1.5-4. 5 Not Available [facility] ([facility]) [address] [facility], [place], [address], 05/08/2023 07:14:56 05/07/19 24 05/08/2023 CMP14 +EGFR A/G ratio 1.5 1.2-2. 2 Not Available [facility] ([facility]) [address] [facility], [place], [address], 05/08/2023 07:14:56 05/07/19 24 05/08/2023 CMP14 +EGFR bilirubin, total 0.2 mg/dL 0.0-1. 2 Not Available [facility] ([facility]) [address] [facility], [place], [address], 05/08/2023 07:14:56 05/07/19 24 05/08/2023 CMP14 +EGFR alkaline phosphatase 80 IU/L 44-121 Not Available [facility]) [address] [facility], [place], [address], 05/08/2023 07:14:56 05/07/19 24 05/08/2023 CMP14 +EGFR AST (SGOT) 20 IU/L 0-40 Not Available [facility] ([facility]) [address] [facility], [place], [address], 05/08/2023 07:14:56 05/07/19 24 05/08/2023 CMP14 +EGFR ALT (SGPT) 20 IU/L 0-32 Not Available [facility] ([facility]) [address] [facility], [place], [address], 05/08/2023 07:14:56 05/07/19 24 05/08/2023 CBC WITH DIFFE RENTI AL/PL ATELE T WBC 5.8 x10e3 /uL 3.4-10 .8 Not Available [facility] ([facility]) [address] [facility], [place], [address], 05/08/2023 07:14:57 05/07/19 24 05/08/2023 CBC WITH DIFFE RENTI AL/PL ATELE T RBC 4.25 x10e6 /uL 3.77-5 .28 Not Available [facility] ([facility]) [address] [facility], [place], [address], 05/08/2023 07:14:57 05/07/19 24 05/08/2023 CBC WITH DIFFE RENTI AL/PL ATELE T hemoglobin 13.2 g/dL 11.1-1 5.9 Not Available [facility] ([facility]) [address] [facility], [place], [address], 05/08/2023 07:14:57 05/07/19 24 05/08/2023 CBC WITH DIFFE RENTI AL/PL ATELE T hematocrit 39.8 % 34.0-4 6.6 Not Available [facility] ([facility]) [address] [place], [address], 05/08/2023 07:14:57 05/07/19 24 05/08/2023 CBC WITH DIFFE RENTI AL/PL ATELE T MCV 94 fL 79-97 Not Available [facility] ([facility]) [address] [place], [address], 05/08/2023 07:14:57 05/07/19 24 05/08/2023 CBC WITH DIFFE RENTI AL/PL ATELE T MCH 31.1 pg 26.6-3 3.0 Not Available [facility] ([facility]) [address] [place], [address], 05/08/2023 07:14:57 05/07/19 24 05/08/2023 CBC WITH DIFFE RENTI AL/PL ATELE T MCHC 33.2 g/dL 31.5-3 5.7 Not Available [facility] ([facility]) [address] [facility], [place], [address], 05/08/2023 07:14:57 05/07/19 24 05/08/2023 CBC WITH DIFFE RENTI AL/PL ATELE T RDW 12.9 % 11.7-1 5.4 Not Available [facility] ([facility]) [address] [facility], [place], [address], 05/08/2023 07:14:57 05/07/19 24 05/08/2023 CBC WITH DIFFE RENTI AL/PL ATELE T platelets 279 x10e3 /uL 150-45 0 Not Available [facility] ([facility]) [address] [facility], [place], [address], 05/08/2023 07:14:57 05/07/19 24 05/08/2023 CBC WITH DIFFE RENTI AL/PL ATELE T neutrophils 68 % not estab. Not Available [facility] ([facility]) [address] [facility], [place], [address], 05/08/2023 07:14:57 05/07/19 24 05/08/2023 CBC WITH DIFFE RENTI AL/PL ATELE T lymphs 23 % not estab. Not Available [facility] ([facility]) [address] [facility], [place], [address], 05/08/2023 07:14:57 05/07/19 24 05/08/2023 CBC WITH DIFFE RENTI AL/PL ATELE T monocytes 6 % not estab. Not Available [facility] ([facility]) [address] [facility], [place], [address], 05/08/2023 07:14:57 05/07/19 24 05/08/2023 CBC WITH DIFFE RENTI AL/PL ATELE T eos 2 % not estab. Not Available [facility] ([facility]) [address] [facility], [place], [address], 05/08/2023 07:14:57 05/07/19 24 05/08/2023 CBC WITH DIFFE RENTI AL/PL ATELE T basos 1 % not estab. Not Available [facility] ([facility]) [address] [facility], [place], [address], 05/08/2023 07:14:57 05/07/19 24 05/08/2023 CBC WITH DIFFE RENTI AL/PL ATELE T immature cells BINDING END STITCHER Not Available [facility] ([facility]) [address] [place], [address], 05/08/2023 07:14:57 05/07/19 24 05/08/2023 CBC WITH DIFFE RENTI AL/PL ATELE T neutrophils (absolute) 4.0 x10e3 /uL 1.4-7. 0 Not Available [facility] ([facility]) [address] [place], [address], 05/08/2023 07:14:57 05/07/19 24 05/08/2023 CBC WITH DIFFE RENTI AL/PL ATELE T lymphs (absolute) 1.3 x10e3 /uL 0.7-3. 1 Not Available [facility] ([facility]) [address] [place], [address], 05/08/2023 07:14:57 05/07/19 24 05/08/2023 CBC WITH DIFFE RENTI AL/PL ATELE T monocytes(ab solute) 0.4 x10e3 /uL 0.1-0. 9 Not Available [facility] ([facility]) [address] [place], [address], 05/08/2023 07:14:57 05/07/19 24 05/08/2023 CBC WITH DIFFE RENTI AL/PL ATELE T eos (absolute) 0.1 x10e3 /uL 0.0-0. 4 Not Available [facility] ([facility]) [address] [place], [address], 05/08/2023 07:14:57 05/07/19 24 05/08/2023 CBC WITH DIFFE RENTI AL/PL ATELE T baso (absolute) 0.0 x10e3 /uL 0.0-0. 2 Not Available [facility] ([facility]) [address] [facility], [place], [address], 05/08/2023 07:14:57 05/07/19 24 05/08/2023 CBC WITH DIFFE RENTI AL/PL ATELE T immature granulocytes 0 % not estab. Not Available [facility] ([facility]) [address] [facility], [place], [address], 05/08/2023 07:14:57 05/07/19 24 05/08/2023 CBC WITH DIFFE RENTI AL/PL ATELE T immature grans (abs) 0.0 x10e3 /uL 0.0-0. 1 Not Available [facility] ([facility]) [address] [facility], [place], [address], 05/08/2023 07:14:57 05/07/19 24 05/08/2023 CBC WITH DIFFE RENTI AL/PL ATELE T NRBC BINDING [employer] STITCHER Not Available [facility] ([facility]) [address] [facility], [place], [address], 05/08/2023 07:14:57 05/07/19 24 05/08/2023 CBC WITH DIFFE RENTI AL/PL ATELE T hematology comments: BINDING [employer]ITCHER Not Available [facility] ([facility]) [address] [facility], [place], [address], 05/08/2023 07:14:57 05/28/19 24 05/28/2023 CT, chest , w/ contr ast [facility] [address] [place] [address] Phone: Fax: Name: ZANDRA CHOWDHURY Exam Date: : [birth year] Age 57 years Gender : F Access ion: [id number] Physic mariano: CASEOMER Facili ty: [facility] Facili ty HSV: Outpat ient Exam: CT [...] Thank you for referr ZANDRA Benito to [facility]. Legall y authen ticate d by KARINA FLETCHER 2023-05-27 10:55: 14 CC'ed Logic: Orderi ng Provid er: CASE OMER Attend ing Provid er: CASE OMER Admitt ing Provid er: CASE OEMR [email or web address] [facility] [address], [place], [address], 05/29/2023 14:33:11 05/28/19 24 05/28/2023 CT, abdom en, w/ contr ast [facility] [address] [place] [address] Phone: Fax: Name: ZANDRA CHOWDHURY Exam Date: 024 : 9[birth year] Age 57 years Gender : F Access ion: [id number] Physic mariano: OMER GEIGER Facili ty: [facility] Facili ty HSV: Outpat ient Exam: [...] you for referr allen ZANDRA CHOWDHURY to [facility]. Legall y authfely thorntonate d by KARINA FLETCHER 05-27 10:56: 41 CC'ed Logic: Orderi ng Provid er: FELY TELLO Attend ing Provid er: FELY TELLO Admitt ing Provid er: FELY TELLO [email or web address] [facility] [address] [place] [address], [place], [address], 05/29/2023 14:33:11 Result Notes Documentation Provider Name and Address Organization Details Recorded Time Ct, Chest, W/ Contrast : [address] [address] Name: ZANDRA CHOWDHURY Exam Date: 05/28/2023 : 1965 Age 57 years Gender: F Physician: OMER GEIGER Facility: [facility] Facility HSV: Outpatient Exam: CT CHEST [...] Thank you for referring ZANDRA CHOWDHURY to [facility]. Legally authenticated by WYATT FLETCHER 2023-05-28 10:55:14 CC'ed Logic: Ordering Provider: FEYL TELLO Attending Provider: FELY TELLO [facility]29[facility] 14:33:11 Ct, Abdomen, W/ Contrast : [facility] [address] [place] [address] Name: ZANDRA CHOWDHURY Exam Date: 05/28/2023 : 1965 Age 57 years Gender: F Physician: OMER GEIGER Facility: [facility] Facility HSV: Outpatient Exam: CT ABD [...] Thank you for referring ZANDRA CHOWDHURY to [facility]. Legally authenticated by WYATT FLETCHER 2023-05-28 10:56:41 CC'ed Logic: Ordering Provider: FELY TELLO Attending Provider: FELY TELLO Admitting Provider: FELY Breaux [facility] [place] - [facility] & [place] 05/29/2023 14:33:11 Problems Name Problem SNOMED Code Status Onset Date Resolution Date Notes Provider Name and Address Organization Details Recorded Time Gastroesophag eal reflux disease without esophagitis 533600376 Active [address], [place], [address] , [place] [facility] & [place] 3 08:35:27 Hiatal hernia 16278895 Active 2022 Rcih Zhao PA-C [address], [place] [id number] , [place] - [facility] & [place] 3 10:31:23 Epigastric discomfort 981686837 Active 2022 Rich Zhao PA-C [address] , [facility] [address] , [place] - [facility] & [place] 3 10:31:29 Right upper quadrant pain 177902382 Active 2023 Rich Zhao PA-C [address], [facility] [address] , [place] - [facility] & [place] 4 12:41:55 Problem Notes None recorded. Procedures Surgical History Date Name Laterality Status Provider Name and Address Organization Details Recorded Time 3 Procedure Note completed [address], [address], [place] - [facility] & [place] 03/05/2023 08:34:12 Imaging Results None recorded. Procedure [...] Updated DateTime 4 157.48 cm 32.3 kg/m2 34955.4 1 g 98.2 [degF] 97 % 97 % 78 /min 67 /min 127/73 mm[Hg] Renee Breaux [facility] & [place] 4 09:31:06 Date Recorded Body height Body mass index (BMI) Body weight Body temperature Oxygen saturation Oxygen saturation in Arterial blood by Pulse oximetry Heart rate Heart rate Systolic And Diastolic Provider Name and Address Organization Details Last Updated DateTime 4 157.48 cm 31.7 kg/m2 08607.2 g 98.1 [degF] 97 % 97 % 66 /min 68 /min 133/80 mm[Hg] David German [facility] & [place] 4 08:38:54 Date Recorded Body height Body mass index (BMI) Body weight Body temperature Oxygen saturation Oxygen saturation in Arterial blood by Pulse oximetry Heart rate Systolic And Diastolic Provider Name and Address Organization Details Last Updated DateTime 5 157.48 cm 30.6 kg/m2 72505.6 4 g 97.3 [degF] 98 % 98 % 64 /min 120/78 mm[Hg] Alex giang [facility] & [place] 5 08:38:57 Date Recorded Body weight Body mass index (BMI) Body height Body temperature Oxygen saturation Oxygen saturation in Arterial blood by Pulse oximetry Heart rate Heart rate Systolic And Diastolic Provider Name and Address Organization Details Last Updated DateTime 3 33878.9 4 g 31.3 kg/m2 157.48 cm 97.7 [degF] 98 % 98 % 80 /min 72 /min 112/73 mm[Hg] David German [place] - [facility] & [place] 10:11:03 Social History Question Answer Notes LastModified by Organizat ion Details LastModified Time What Is Your Level Of Caffeine Consumption? Moderate [email or web address] Information not available 03/05/2023 Has Tobacco Cessation Counseling Been Provided? No [email or web address] Information not available 03/05/2023 Sex: Unknown Functional Status Question Answer Note LastModified by Organizat ion Details LastModified Time Do you use any illicit or recreational drugs? No Information not available 03/05/2023 Do you or have you ever used any other forms of tobacco or nicotine? No [email or web address] Information not available 03/05/2023 Mental Status None recorded. Family History Nothing Reported. Medical History No medical history recorded. Gynecological HistoryNo gynecological history recorded. Obstetrics History GPAL:G 0 P 0 0 0 0 Past Encounters Encounter ID Performer Location Encounter Start Date Encounter Closed Date Diagnosis/Indication Diagnosis SNOMED-CT Code Diagnosis ICD10 Code Diagnosis IMO Codes Diagnosis Note [id number] Rich Zhao PA-C [facility] [address] [address] 03/05/2023 09:52:08 03/05/2023 11:05:11 Gastroesophageal reflux disease without esophagitis 455368192 K21.9 Hiatal hernia 94698872 K 44.9 Epigastric discomfort 11 2262702 R10.13 [id number] Omer Geiger MD [facility] [address] [address] 05/07/2023 09:06:27 05/07/2023 10:10:36 Gastroesophageal reflux disease without esophagitis 257200075 K21.9 Hiatal hernia 16636769 K 44.9 Epigastric discomfort 11 5162395 R10.13 [id number] Rich Zhao PA-C [facility] [address] [address] 07/09/2023 08:29:59 07/09/2023 09:29:01 Gastroesophageal reflux disease without esophagitis 030784567 K21.9 Hiatal hernia 99938235 K 44.9 Right uppe r quadrant pain 868181588 R10.11 [id number] Rich Zhao PA-C [facility] [address] [facility] [address] [place] [address] 07/08/2024 08:32:04 07/08/2024 09:12:08 Gastroesophageal reflux disease without esophagitis 522233184 K21.9 Hiatal hernia 52431132 K 44.9 Health Concerns Section Related Observation LastModified by Organization Detai ls LastModified Time None Recorded Concern Status LastModified by Organization Details LastModified Time None Recorded Advance Directives Directive None Recorded Payers Insurance Date Sequence Insurance Name Policy Number Policy Wylie Covered Member ID Wylie Member ID Guarantor Name 07/11/[address] [facility] (MEDICAID HMO) Zandra Chowdhury [id number] 07/08/2024 1 [employer] (MEDICAID REPLACEMENT - HMO) [id number] Zandra Chowdhury [id number] Notes Date Note Type Note Provider Name [...] or chest pain. Rich Zhao PA-C [address] [facility], [place], [address], [place] - [facility] - [place] & [place] 03/05/2023 11:12:22 05/07/2023 text/html PREVIOUS (): Ms. [...] exacerbated by external palpation. Omer Geiger MD [address] [facility], [place], [address], [facility] & [place] 05/07/2023 10:06:54 07/09/2023 text/html PREVIOUS (): Ms. [...] right. Rich Zhao PA-C [address], [place], [address], [facility] - [facility] & [place] 07/09/2023 12:45:38 07/08/2024 text/html CURRENT (07/08/24): Ms. Chowdhury presents to the office today for 1 year follow-up regarding GERD and hiatal hernia. Her symptoms have remained stable over the past 1 year with use of omeprazole 40 mg once daily. She denies breakthrough heartburn or regurgitation. She is without physical complaint at this time. Rich Zhao PA-C [address], [place], [address], [facility] - [facility] & [place] 07/08/2024 17:09:40 OBGyn Episode No OBEpisode recorded.
[2025-01-13 19:25] VITALS: BP 122/83; PULSE 78; RESP 23; O2SAT 94
--- NOTE | 2025-01-13 19:25 | CT_ITS ---
PROCEDURE INFORMATION: Exam: CTA Head With Contrast, Venography Exam date and time: 01/13/2025 7:58 PM Age: 59 years old Clinical indication: Syncope and collapse TECHNIQUE: Imaging protocol: Computed tomography angiography of the head with contrast. Exam focused on the veins. 3D rendering (Not supervised by radiologist): MIP and/or 3D reconstructed images were created by the technologist. Radiation optimization: All CT scans at this facility use at least one of these dose optimization techniques: automated exposure control; mA and/or kV adjustment per patient size (includes targeted exams where dose is matched to clinical indication); or iterative reconstruction. Contrast material: ISO; Contrast volume: 80 ml; Contrast route: INTRAVENOUS (IV); COMPARISON: CT HEAD/BRAIN WO CON 01/13/2025 7:56 PM FINDINGS: Superior sagittal sinus: Patent Straight sinus: Patent. Transverse sinuses: Patent. Sigmoid sinuses: Patent. Internal jugular veins: Patent. ANTERIOR CIRCULATION: Right internal carotid artery: The right ICA petrous, cavernous, and supraclinoid segments are unremarkable. Right middle cerebral artery: Unremarkable. No occlusion or significant stenosis. No aneurysm. Right anterior cerebral artery: Unremarkable. No occlusion or significant stenosis. No aneurysm. The anterior communicating artery is unremarkable. Left internal carotid artery: The left ICA petrous, cavernous, and supraclinoid segments are unremarkable. Left middle cerebral artery: Unremarkable. No occlusion or significant stenosis. No aneurysm. Left anterior cerebral artery: Unremarkable. No occlusion or significant stenosis. No aneurysm. POSTERIOR CIRCULATION: Right vertebral artery: Unremarkable. No occlusion or significant stenosis. No aneurysm. Left vertebral artery: Left vertebral artery is dominant. No occlusion or significant stenosis. No aneurysm. Basilar artery: Unremarkable. No occlusion or significant stenosis. No aneurysm. Right posterior cerebral artery: Normal variant persistent origin with hypoplastic right P1 segment. No occlusion or significant stenosis. No aneurysm. Left posterior cerebral artery: Small left posterior communicating artery present. No occlusion or significant stenosis. No aneurysm. Brain: No enhancing brain lesions or vascular malformations are identified. Cerebral ventricles: No ventriculomegaly. Paranasal sinuses: Mucosal thickening in the bilateral anterior ethmoid air cells, inferomedial frontal sinuses, and inferior maxillary sinuses suggesting mild chronic sinusitis. No fluid levels. Soft tissues: Unremarkable. IMPRESSION: 1. No acute vascular abnormalities. No evidence of large vessel occlusion or significant stenosis. No venous thrombosis. 2. No acute intracranial process is evident. 3. Mild chronic sinusitis.
--- NOTE | 2025-01-13 19:25 | CT_ITS ---
PROCEDURE INFORMATION: Exam: CTA Neck With Contrast Exam date and time: 01/13/2025 7:58 PM Age: 59 years old Clinical indication: Dizziness and giddiness and syncope and collapse TECHNIQUE: Imaging protocol: Computed tomographic angiography of the neck with contrast. Exam focused on the cervical segments of the vasculature. 3D rendering (Not supervised by radiologist): MIP and/or 3D reconstructed images were created by the technologist. Radiation optimization: All CT scans at this facility use at least one of these dose optimization techniques: automated exposure control; mA and/or kV adjustment per patient size (includes targeted exams where dose is matched to clinical indication); or iterative reconstruction. Contrast material: ISO 370; Contrast volume: 80 ml; Contrast route: INTRAVENOUS (IV); COMPARISON: CT ANGIO NECK 01/13/2025 7:58 PM FINDINGS: Right common carotid artery: Normal. No stenosis. No dissection or occlusion. Right internal carotid artery: Normal. No stenosis. No dissection or occlusion. Right external carotid artery: Normal. No stenosis. No dissection or occlusion. Left common carotid artery: Variant origin from the brachiocephalic artery. No stenosis. No dissection or occlusion. Left internal carotid artery: Normal. No stenosis. No dissection or occlusion. Left external carotid artery: Normal. No stenosis. No dissection or occlusion. Right vertebral artery: Normal. No stenosis. No dissection or occlusion. Left vertebral artery: Left vertebral artery is dominant. No stenosis. No dissection or occlusion. Brachiocephalic artery: The brachiocephalic artery is unremarkable. Right subclavian artery: The right subclavian artery is unremarkable. Left subclavian artery: The left subclavian artery is unremarkable. Aorta: The visualized aortic arch demonstrates mild tortuosity without aneurysm or dissection. Thyroid: The thyroid gland is unremarkable. Soft tissues: No significant soft tissue swelling or hematoma. Bones/joints: No acute osseous abnormalities are identified. Moderate disc osteoarthritic changes C3-C4 through C5-C6. Moderate canal stenosis C3-C4. Lungs: Mediastinal and hilar granulomatous calcifications noted. Mild subsegmental atelectasis in the upper lung alejandre. 2.5 mm right apical pulmonary nodule series 3, image 29. For patients at low risk (minimal or absent history of smoking and of other known risk factors), no routine follow-up is indicated. For patients at high risk (history of smoking or of other known risk factors), consider optional CT at 12 months. (Chance et al., Fleischner Society, 2017). IMPRESSION: 1. No vascular occlusions or significant stenosis. No acute findings. 2. There is a 2.5 mm pulmonary nodule in the right apex. Please see recommendations above. 3. Cervical osteoarthritic changes with moderate canal stenosis C3-C4. REFERENCES: NASCET CRITERIA. The degree of stenosis in the cervical segment of the internal carotid artery is based on NASCET criteria. Normal is no stenosis. Mild is less than 50% stenosis. Moderate is 50-69% stenosis. Severe is 70% to 99% stenosis. Total occlusion is no detectable patent lumen.
--- NOTE | 2025-01-13 19:25 | CT_ITS ---
PROCEDURE INFORMATION: Exam: CTA Chest With Contrast Exam date and time: 01/13/2025 8:01 PM Age: 59 years old Clinical indication: Other: Syncope TECHNIQUE: Imaging protocol: Computed tomographic angiography of the chest with contrast. Exam focused on the arteries. 3D rendering (Not supervised by radiologist): MIP and/or 3D reconstructed images were created by the technologist. Radiation optimization: All CT scans at this facility use at least one of these dose optimization techniques: automated exposure control; mA and/or kV adjustment per patient size (includes targeted exams where dose is matched to clinical indication); or iterative reconstruction. Contrast material: ISOVUE 370; Contrast volume: 80 ml; Contrast route: INTRAVENOUS (IV); COMPARISON: CT ANGIO NECK 01/13/2025 7:58 PM FINDINGS: Pulmonary arteries: Satisfactory opacification of the pulmonary arteries. No acute pulmonary embolus is appreciated. No enlargement of the main pulmonary artery. Aorta: No thoracic aortic aneurysm or dissection is appreciated. Bovine arch. Thyroid: Tiny 5 mm nodule anterior left lobe of the thyroid which does not require additional evaluation or follow-up. Lungs: Scattered atelectasis within both lungs with a few calcified granulomata bilaterally. 5 mm subpleural noncalcified nodule posterior left lower lobe. Pleural spaces: Unremarkable. No pneumothorax. No pleural effusion. Heart: Unremarkable. No cardiomegaly. No pericardial effusion. Lymph nodes: Small calcified prevascular and precarinal lymph nodes. Small right hilar lymph node that is partially calcified. No suspicious mediastinal or hilar adenopathy appreciated. Diaphragm: Small hiatal hernia. Gallbladder and biliary ducts: Surgical clips gallbladder fossa. Kidneys: Small subcentimeter low-attenuation nodules left kidney which are probably small cysts and do not require additional follow-up. Bones/joints: Unremarkable. No acute fracture. Soft tissues: Unremarkable. IMPRESSION: 1. No acute pulmonary embolus is identified. 2. No acute infiltrate or pleural effusion appreciated. 3. Noncalcified 5 mm subpleural nodule posterior left lower lobe.For patients at low risk (minimal or absent history of smoking and of other known risk factors), no routine follow-up is indicated. For patients at high risk (history of smoking or of other known risk factors), consider optional CT Chest at 12 months. (Reference: Chance) References: Chance Sosa et al. Guidelines for Management of Incidental Pulmonary Nodules Detected on CT Images: From the Fleischner Society 2017. Radiology. 2017;284(1):228-243. 4. Other findings above. COMMENTS: 1. Consistent with the [employer]'s Incidental Findings Committee white paper (J Am Modesto Radiol 2018): Any incidental renal lesion less than 1 cm or classified as too small to characterize, or any incidental cystic renal lesion characterized as simple-appearing, is likely benign. No follow-up imaging is recommended for these lesions per consensus recommendations based on imaging criteria. 2. Consistent with the [employer]'s Incidental Findings Committee white paper (J Am Modesto Radiol 2015): In patients aged 35 years and older with an incidental thyroid nodule equal to or greater than 1.[address], MRI or extrathyroidal US, further evaluation with dedicated thyroid US is recommended for patients with normal life expectancy and without comorbidities. For smaller nodules without suspicious features, no further evaluation or follow up is recommended.
--- NOTE | 2025-01-13 19:25 | CT_ITS ---
PROCEDURE INFORMATION: Exam: CT Head Without Contrast Exam date and time: 01/13/2025 7:56 PM Age: 59 years old Clinical indication: Dizziness and syncope and collapse TECHNIQUE: Imaging protocol: Computed tomography of the head without contrast. Radiation optimization: All CT scans at this facility use at least one of these dose optimization techniques: automated exposure control; mA and/or kV adjustment per patient size (includes targeted exams where dose is matched to clinical indication); or iterative reconstruction. COMPARISON: CR XR CERVICAL SPINE 5V 09/30/2021 3:01 PM FINDINGS: Brain: Normal. No hemorrhage. Unremarkable white matter. No mass effect. Cerebral ventricles: No ventriculomegaly. Paranasal sinuses: Visualized sinuses are unremarkable. No fluid levels. Mastoid air cells: Visualized mastoid air cells are well aerated. Bones: Mild mucosal thickening of some of the ethmoids bilaterally. Soft tissues: Unremarkable. IMPRESSION: No acute intracranial abnormality. Incidental mild ethmoid sinus disease.
--- NOTE | 2025-01-13 19:28 | ED_ITS ---
<Statement entered by Lori Patel DO - 01/13/25 21:02> I was consulted by the LELE, and we discussed the complexity of problems being addressed. I approve the treatment and management plan for this patient's care in the emergency department, thus performing a substantial portion of the medical decision making. Lori Patel DO Discharge Plan Disposition Chief Complaint: Syncope Prescriptions Prescriptions: No Action methylprednisolone 4 mg tablets,dose pack See Rx Instructions PO PER PKG DIR Qty: 21 0RF Rx Instructions: PO PER PKG DIR fluticasone propionate [Allergy Relief (fluticasone)] 50 mcg/actuation spray,suspension 1 spray intranasal DAILY Qty: 16 0RF Rx Instructions: administer into each nostril pseudoephedrine HCl 60 mg tablet 60 mg PO Q6H PRN (Reason: nasal congestion) Qty: 20 0RF Rx Instructions: DNExceed 4 doses/24h lisinopril 20 mg tablet 20 mg PO DAILY omeprazole 40 mg capsule,delayed release(DR/EC) 40 mg PO DAILY Patient Comments: TAKE ONE CAPSULE BY MOUTH EVERY DAY 30 minutes BEFORE morning meal levothyroxine 75 mcg tablet 75 mcg PO DAILY Patient Comments: TAKE ONE TABLET BY MOUTH EVERY DAY ON an EMPTY stomach levothyroxine 88 mcg tablet 88 mcg PO DAILY Patient Comments: TAKE ONE TABLET BY MOUTH EVERY DAY IN THE MORNING ON an EMPTY stomach sertraline 50 mg tablet 50 mg PO DAILY Patient Comments: TAKE ONE TABLET BY MOUTH EVERY DAY rosuvastatin 5 mg tablet 5 mg PO HS Referrals Follow up/Referrals: Rafa Capellan MD [Primary Care Provider, Medical] - See instructions Instructions Patient Instructions: DI for Syncope in Adults (Fainting), DI for Syncope in Children (Fainting) Print Language Print Language: Kiswahili Discharge ED Provider: Lori Patel General Adult HPI General Chief complaint: Syncope Stated complaint: passed out, confused Time Seen by Provider: 01/13/25 19:06 Mode of Arrival: Ambulatory Source of Information: Patient and Spouse Description of Symptoms (Recalled from ER Triage Doc. by RN): patient presents to the Ed after a witnessed syncopal episode at home. most of hte information is gatheres from her spouse who is with her. patient does not recall any of it. the patients stated that she has been congestion and overall not feeling well since thursday and hasnt had much energy. the stated she wa ssitting in a chair talking with [place] family memebr when she suddenly dropped her head backwards and was just out for about 5 minutes he also stated i shook her alot and she wouldnt come too . when patient awoke from the syncopal episode, she was reportedly confused and vomiting and the confusion lasted about 5 minutes per the . amaris has never had this happen before. no significant history. History of Present Illness HPI narrative: 59-year-old female presents to the ED after having a syncopal episode sitting on the couch. Her and says that she just laid her head back and she was out for a few seconds. She does not remember any of this. Her tells me that she was congested all week and then has had a cough. Just has not been feeling well and has been fatigued all week. She went into [facility] prior to going to a family member's home for Halloween and says she just felt tired when she came out. Has been states that she was out for a few minutes and said had to shake her to get her awake. When she woke up she was confused. Said she did vomit once she says she feels better now but still tired and does not remember the episode. She says this is never happened before. She has history only of hypertension, hyperlipidemia, hypothyroidism. Patient states she is on cholesterol meds, hyper tension meds, thyroid meds and depression medications. No new meds. She has been taking Sudafed and Methylpred according to her chart. Related Data Home Medications ?Medication ?Instructions ?Recorded ?Confirmed levothyroxine 75 mcg tablet 75 mcg PO DAILY 12/29/23 0 09/27/24 levothyroxine 88 mcg tablet 88 mcg PO DAILY 12/29/23 0 09/27/24 lisinopril 20 mg tablet 20 mg PO DAILY 12/29/2309/13 omeprazole 40 mg capsule,delayed 40 mg PO DAILY 09/27/24 release rosuvastatin 5 mg tablet 5 mg PO HS 12/29/23 09/27/24 sertraline 50 mg tablet 50 mg PO DAILY 12/29/2309/13 Previous Rx's ?Medication ?Instructions ?Recorded fluticasone propionate 50 1 spray intranasal DAILY #16 grams 05/17/24 mcg/actuation nasal spray,suspension (Allergy Relief (fluticasone)) methylprednisolone 4 mg tablets in See Rx Instructions PO PER PKG DIR 05/17/24 a dose pack #21 tabs pseudoephedrine HCl 60 mg tablet 60 mg PO Q6H PRN nasa l congestion 05/17/24 #20 tabs Allergies Allergy/AdvReac Type Severity Reaction Status Date / Time No Known Allergies Allergy Unverified 09/27/24 09:22 [facility] Disclaimer: The information contained in this section may have been updated after the patient was seen, as this information can be updated by other users. Medical History Fall Pain in lower extremity due to sciatica Hyperlipidemia Surgical History Hx of LASIK History of cholecystectomy History of tubal ligation Social History Smoking Status: Never smoker alcohol intake: never current occupational status: employed Travel in the last 8 weeks?: None Have you lived/traveled outside [place] in past 30 days?: No Contact w/someone who lives/traveled outside US past 30 days?: No Exposure to someone with infectious disease in past 14 days?: No Do you have a fever (greater than 100.4 F or 38 C)?: No Have you tested positive for COVID-19?: No Exposed to someone with COVID-19 in past 14 days?: No Do you have a sore throat?: No Do you have a cough?: No Do you have any weakness?: No Do you have any diarrhea?: No Are you experiencing any unusual bleeding?: No Do you have any muscle aches/pain?: No Do you have any abdominal pain?: No Are you experiencing loss of taste or smell?: No Other Medical History Have you received the Pneumonia Vaccine: No ROS Obtained: Yes Systems reviewed as appropriate & no additional complaints except as documented Constitutional Constitutional: Reports as per HPI Physical Exam General General appearance: alert and in no apparent distress Head Head exam: normocephalic Eye Eye exam: Present PERRL and EOMI ENT ENT exam: Present normal oropharynx and mucous membranes moist Neck Neck exam: Present full ROM and trachea midline Respiratory Respiratory exam: Present normal lung sounds bilaterally Cardiovascular Cardiovascular exam: Present regular rate, normal rhythm, normal heart sounds, +S1 and +S2 Abdominal Exam Abdominal exam: Present soft and normal bowel sounds Extremities Exam Extremities exam: Present full ROM and normal capillary refill Neurological Exam Neurological exam: Present alert, oriented X3 and normal gait Skin Skin exam: Present warm and dry Medical Decision Making Medical Records Screening: Per USPSTF and CDC recommendations, given the prevalence of disease in our region, it is our hospital?s policy to screen for HIV and viral Hepatitis for all patients aged 18 and over and those with ongoing risk factors. Rogelio Inquiry Pt receiving controlled substance: No Rogelio was queried for this patient: No Vital Signs: 01/13/25 19:03 01/13/25 19:25 Temperature 98.2 F Temperature Source Oral Pulse Rate 78 Pulse Rate [Right Radial] 88 Respiratory Rate 18 23 Blood Pressure 122/83 Blood Pressure [Right Arm] 130/80 Blood Pressure Mean [Right Arm] 96 Blood Pressure Source [Right Arm] Automatic Cuff Blood Pressure Position [Right Arm] Sitting 02 Sat by Pulse Oximetry 95 94 L Oxygen Delivery Method Room Air Room Air Lab Data Lab Results 01/13/25 19:07: POC Glucose 120 H 01/13/25 19:22: WBC 7.5, RBC 4.71, Hgb 14.7, Hct 43.5, MCV 92.4, MCH 31.2, MCHC 33.8, RDW 12.7, Plt Count 334, MPV 9.1, Neut % (Auto) 57.1, Lymph % (Auto) 29.5, [place] % (Auto) 11.7 H, Eos % (Auto) 0.9, Baso % (Auto) 0.7, Neut # (Auto) 4.3, Lymph # (Auto) 2.2, [place] # (Auto) 0.9, Eos # (Auto) 0.1, Baso # (Auto) 0.1, D- Dimer 0.43, Sodium 135 L, Potassium 4.2, Chloride 98, Carbon Dioxide 29, Anion Gap 12.2, BUN 32 H, Creatinine 1.20 H, Estimated Creat Clear 63, Estimated GFR 46 L, Est GFR ( Amer) 56 L, Glucose 135 H, Calcium 9.6, Magnesium 2.3, Total Bilirubin 0.6, AST 37 H, ALT 30, Alkaline Phosphatase 103, Troponin I < 0.01, Total Protein 9.0 H D, Albumin 4.0, Globulin 5.0 H, Albumin/Globulin Ratio 0.8 L, Lipase 92 01/13/25 19:31: SARS-CoV-2 (PCR) Not detected, Influenza A Untype (PCR) Not detected, Influenza Type B (PCR) Not detected 01/13/25 19:22 01/13/25 19:22 Orders (Tests/Meds): ED MEDICATIONS Generic Name Dose Route Start Last Admin Trade Name Freq PRN Reason Stop Dose Admin Sodium Chloride 10 ml 01/13/25 19:52 01/13/25 19:57 Sodium Chloride 0.9% 10ml Syr (Rad Only) IV 02/12/25 19:51 10 ml NEEDED PRN Administration Maintain IV Site Discontinued Medications Generic Name Dose Route Start Last Admin Trade Name Freq PRN Reason Stop Dose Admin Sodium Chloride 1,000 mls @ 999 mls/hr 01/13/25 19:26 01/13/25 19:37 Sod Chlor 0.9% 1000ml Bag IV 01/13/25 20:26 999 mls/hr .Q1H1M ONE Administration Iopamidol 150 ml 01/13/25 19:52 01/13/25 19:57 Iopamidol-370 (76%);100ml Bottle IV 01/13/25 19:53 150 ml ONCE ONE Administration Sodium Chloride 50 ml 01/13/25 19:52 01/13/25 19:57 0.9 % Sodium Chloride 50 Ml Vial IV 01/13/25 19:53 50 ml ONCE ONE Administration ORDERS Category Date Time Status CT angio chest PE protocol Stat Cat Scan 01/13/25 19:[address] angio head Stat Cat Scan 01/13/25 19:[address] angio neck Stat Cat Scan 01/13/25 19:[address] head/brain wo con Stat Cat Scan 01/13/25 19:25 Completed CBC [Complete Blood Count Auto Diff] Stat Lab 01/13/25 19:22 Completed Comprehensive Metabolic Panel Stat Lab 01/13/25 19:22 Completed D-Dimer Stat Lab 01/13/25 19:22 Completed Lipase Stat Lab 01/13/25 19:22 Completed Magnesium Stat Lab 01/13/25 19:22 Completed POC Glucose,Bedside Routine Lab 01/13/25 19:07 Completed Rapid PCR Covid and Flu A/B Stat Lab 01/13/25 19:31 Completed Trop I [Troponin I] Stat Lab 01/13/25 19:22 Completed Troponin I Q3H Lab 01/13/25 22:30 Ordered Troponin I Q3H Lab 01/14/25 01:30 Ordered Medical Decision Narrative: patient is a 59-year-old female presenting to the emergency department for evaluation of syncopal episode. Patient is hemodynamically stable and nontoxic- appearing upon arrival, afebrile. Differential diagnosis includes syncope, possibly medication, dysrhythmia, electrolyte imbalance, among others.. Workup will be conducted with hematologic labs, specific imaging, provocative tests. Initial inventions include crystalloid bolus, analgesics. Initial workup reviewed by me hematologic labs are remarkable for white cell count of 7.5, BUN 32 creatinine 1.2 I discussed with patient that she will need to hydrate aggressively in addition to the liter of fluids we gave her here in the ED. She will need to follow-up with Dr. Capellan this next week. She agreed. Troponin was less than 0.01. Have had patient had CTA of head and neck and plain CT of head which were all negative except for chronic sinusitis. I will give patient an antibiotic to go home on. She will again talk to her PCP about the syncopal episode and the chronic sinusitis as well as GAVINO I. Patient is safe for discharge home. I did discuss this with Dr. Patel. Critical Care Critical Care Time Critical Care Time: No
[2025-01-13 19:31] VITALS: BP 93/58; PULSE 79; RESP 18; O2SAT 95
[2025-01-13 19:32] VITALS: BP 98/65; PULSE 89; RESP 12; O2SAT 96
[2025-01-13 19:33] LABS: Hematocrit 43.5 % (37.0-47.0); Hemoglobin 14.7 g/dL (12.2-16.2); Immature Granulocytes % 0.1 %; Mean Corpuscular HGB Conc 33.8 g/dL (31.8-35.4); Mean Corpuscular Hemoglobin 31.2 pg (27.0-31.2); Mean Corpuscular Volume 92.4 fl (81-99); Nucleated Red Blood Cells % 0 %; Platelet Count 334 K/mm3 (142-424); Red Blood Count 4.71 M/mm3 (4.20-5.40); Red Cell Distribution Width-SD 43.3 fL; White Blood Count 7.5 K/mm3 (4.8-10.8)
[2025-01-13 19:35] LABS: Coronavirus 19, PCR Not Detected (NotDetected); Influenza A, PCR Not Detected (NotDetected); Influenza B, PCR Not Detected (NotDetected)
[2025-01-13] MEDS: 0.9 % SODIUM CHLORIDE 1000ML 1,000 ML 999 ML IV (19:37)
[2025-01-13 19:43] LABS: Alanine Aminotransferase 30 U/L (12-78); Albumin Level 4.0 g/dl (3.5-5.0); Albumin/Globulin Ratio 0.8 (1.1-1.8); Alkaline Phosphatase 103 U/L (38-126); Anion Gap 12.2 mEq/L (5-15); Aspartate Amino Transferase 37 U/L (14-36); Bilirubin,Total 0.6 mg/dl (0.2-1.3); Blood Urea Nitrogen 32 mg/dl (7-17); Calcium 9.6 mg/dl (8.4-10.2); Carbon Dioxide 29 mmol/L (22.0-30.0); Chloride 98 mmol/L (98-107); Creatinine Clearance Estimated 63 mL/min (50-200); Creatinine,Serum 1.20 mg/dl (0.52-1.04); Estimated Glomerular Filt Rate 46 ml/min (>60); GFR (African American) 56 ML/MIN (>60); Globulin 5.0 g/dL (1.3-3.2); Glucose 135 mg/dl (74-100); Lipase 92 U/L (23-300); Magnesium 2.3 mg/dl (1.6-2.3); Potassium 4.2 mmoL/L (3.5-5.1); Sodium 135 mmol/L (136-145); Total Protein,Serum 9.0 g/dl (6.3-8.2)
[2025-01-13 19:49] LABS: D-Dimer 0.43 ug/mL (0.0-0.5)
[2025-01-13 19:56] LABS: Troponin I < 0.01 ng/ml (0.00-0.034)
[2025-01-13] MEDS: IOPAMIDOL-370 (76%);100ML BOTTLE 150 ML IV (19:57)
[2025-01-13] MEDS: SODIUM CHLORIDE 0.9% 10ML SYR (RAD ONLY) 10 ML IV (19:57)
[2025-01-13] MEDS: 0.9 % SODIUM CHLORIDE 50 ML VIAL IV (19:57)
[2025-01-13 20:30] VITALS: BP 122/77; PULSE 89; RESP 21; O2SAT 96
[2025-01-13 20:54] VITALS: BP 122/77; PULSE 79; RESP 15; TEMP -17.2; TEMP 1; O2SAT 96
== END 2025-01-13 21:00 | disposition home or self-care (01) ==
PROVIDERS: Nurse Practitioner; Emergency Provider Student in an Organized Health Care Education/Training Program; PCP Family Medicine
DX: R55 Syncope and collapse (principal); N17.9 Acute kidney failure, unspecified; J32.1 Chronic frontal sinusitis; I10 Essential (primary) hypertension; E78.5 Hyperlipidemia, unspecified; E03.9 Hypothyroidism, unspecified
CPT/HCPCS: 70450; 70496; 70498; 71275; 80053; 82962; 83690; 83735; 84484; 85025; 85378; 87636; 93005; 96360; 99285; J7030; Q9967